=== PATIENT | male | born 1950 | race Two or more races ===

== ENCOUNTER 2018-02-05 08:26 | Inpatient (IN) | payer MEDICARE, OTHER ==
[~2018-02-05] VITALS: Ht 165.1 cm; Wt 65.8 kg
[~2018-02-05 08:26] MED LIST: ASPIRIN81 MG ORAL
[2018-02-05] MEDS ORDERED: TAMSULOSIN HCL0.4 MG ORAL (08:28)
[2018-02-05] MEDS ORDERED: NEPHROVITE1 TAB ORAL (08:28)
[2018-02-05] MEDS ORDERED: DOCUSATE SODIU100 M2 ORAL (08:28)
[2018-02-05] MEDS ORDERED: ACETAMINOPHEN325 M1 ORAL (08:28)
[2018-02-05] MEDS ORDERED: NEXIUM40 MG ORAL (08:28)
[2018-02-05] MEDS ORDERED: TRAMADOL HCL100 M2 ORAL (08:28)
[2018-02-05] MEDS ORDERED: COREG6.25 MG ORAL (08:28)
[2018-02-05] MEDS ORDERED: BACLOFEN5 GM MC (08:33)
[2018-02-05] MEDS ORDERED: PROGRAF0.5 MG PO (08:33)
[2018-02-05] MEDS ORDERED: PREDNISONE5 M4 PO (08:33)
[2018-02-05] MEDS ORDERED: ZOFRAN4 M1 ORAL (08:33)
[2018-02-05] MEDS ORDERED: CATAPRES0.2 MG ORAL (08:33)
[2018-02-05] MEDS ORDERED: LANTUS SOL100 UNIT/1 SUBQ (08:33)
[2018-02-05] MEDS ORDERED: FLUCONAZOLE100 MG ORAL (08:33)
--- NOTE | 2018-02-05 08:57 | Emergency Room Report ---
History of Present Illness General Chief Complaint: Altered Level of Consciousness Source: EMS Present Illness HPI Patient presents with reports of altered mental status patient presents from a nursing facility There is no report of last known well Patient was found this morning to be altered There is a report from paramedics that the patient usually is awake and alert Was found this morning with decreased GCS Patient has very minimal grimacing with physical stimuli There was no reports of obvious fever Patient appears to be a dialysis patient however unknown last dialysis Very limited report provided by EMS Allergies: Coded Allergies: No Known Allergies (Unverified , 02/05/18) Patient History Limited by: medical condition Past Medical History: see triage record Pertinent Family History: unable to obtain Reviewed Nursing Documentation: PMH: Agreed; PSxH: Agreed Review of Systems All Other Systems: limited - Other than the ones mentioned in the history of present illness all others are reviewed however they do stay limited due to the patient's mental status Physical Exam Vital Signs Date Time Temp Pulse Resp B/P (MAP) Pulse Ox O2 Delivery O2 Flow Rate FiO2 02/05/18 08:09 90.1 80 20 178/101 99 Nasal Cannula 2.0 90.1 Sp02 EP Interpretation: reviewed, normal General Appearance: moderate distress - Decreased responsiveness Head: normocephalic, atraumatic Eyes: bilateral eye PERRL ENT: dry mucus membranes Neck: supple Respiratory: no retraction, no accessory muscle use, crackles - Both lower lobes Cardiovascular #1: regular rate, rhythm Gastrointestinal: soft, no mass, no bruit, no guarding Musculoskeletal: other - Patient does not have any movement of his upper or lower limbs with physical stimuli, minimally grimaces with physical stimuli Neurologic: other - Decreased GCS as noted above, essentially minimal movement to physical stimuli, does not have any response to verbal stimuli, upper and lower extremities have no response to physical stimuli Skin: pallor Lymphatic: no adenopathy Procedures Critical Care Time Critical Care Time 50 minutes for multiple re-evaluations initial critical presentation concerning for intracranial and cardiac disease and life-threatening pathology. Not including any procedural time, Medical Decision Making Diagnostic Impression: Primary Impression: Acute encephalopathy Additional Impression: Altered level of consciousness ER Course Speaking to the family at bedside now They report that the patient has had a renal transplant several years ago and has not required dialysis since then patient was also recently at [facility] Family reports the patient required several blood transfusions Also reported history of a fall recently hitting the right side of his head The patient's sister reports that the patient has not been verbal and appears unresponsive for the past 2 days now Yesterday the patient was not verbal She also reports that since the fall about 7 days ago patient has not been ambulatory Family also reports the patient had previous history of meningitis with description of encephalopathy patient otherwise remains in critical condition Essentially responsive to physical stimuli but not verbal Initial workup including CT head does not reveal any acute bleed Patient does not meet criteria for thrombolytic therapy Multiple reasons including last known well Patient's white blood cell count is appropriate patient started on broad- spectrum antibiotics also given some right lower lobe atelectasis/concern for aspiration Case discussed with admitting physician Encephalopathy from multiple differentials also considered and patient will have further inpatient care Labs Test 02/05/18 09:00 White Blood Count 7.3 K/UL (4.8-10.8) Red Blood Count 3.07 M/UL (4.70-6.10) Hemoglobin 10.0 G/DL (14.2-18.0) Hematocrit 28.9 % (42.0-52.0) Mean Corpuscular Volume 94 FL (80-99) Mean Corpuscular Hemoglobin 32.5 PG (27.0-31.0) Mean Corpuscular Hemoglobin Concent 34.6 G/DL (32.0-36.0) Red Cell Distribution Width 16.3 % (11.6-14.8) Platelet Count 114 K/UL (150-450) Mean Platelet Volume 6.3 FL (6.5-10.1) Neutrophils (%) (Auto) 76.0 % (45.0-75.0) Lymphocytes (%) (Auto) 12.4 % (20.0-45.0) Monocytes (%) (Auto) 8.2 % (1.0-10.0) Eosinophils (%) (Auto) 2.7 % (0.0-3.0) Basophils (%) (Auto) 0.7 % (0.0-2.0) Prothrombin Time 9.6 SEC (9.30-11.50) Prothromb Time International Ratio 0.9 (0.9-1.1) Activated Partial Thromboplast Time 33 SEC (23-33) Urine Color Yellow Urine Appearance Clear Urine pH 5 (4.5-8.0) Urine Specific [place] 1.020 (1.005-1.035) Urine Protein 4+ (NEGATIVE) Urine Glucose (UA) 3+ (NEGATIVE) Urine Ketones Negative (NEGATIVE) Urine Occult Blood 5+ (NEGATIVE) Urine Nitrite Negative (NEGATIVE) Urine Bilirubin Negative (NEGATIVE) Urine Urobilinogen 1 MG/DL (0.0-1.0) Urine Leukocyte Esterase 1+ (NEGATIVE) Urine RBC 5-10 /HPF (0 - 0) Urine WBC 2-4 /HPF (0 - 0) Urine Squamous Epithelial Cells Few /LPF (NONE/OCC) Urine Bacteria Occasional /HPF (NONE) Urine Eosinophils None seen Urine Random Sodium 16 mmol/L (20-110) Urine Potassium Timed 41 mmol/L (12-62) Sodium Level 136 MMOL/L (136-145) Potassium Level 4.2 MMOL/L (3.5-5.1) Chloride Level 103 MMOL/L (98-107) Carbon Dioxide Level 24 MMOL/L (21-32) Anion Gap 9 mmol/L (5-15) Blood Urea Nitrogen 79 mg/dL (7-18) Creatinine 2.8 MG/DL (0.55-1.30) Estimat Glomerular Filtration Rate 22.7 mL/min (>60) Glucose Level 168 MG/DL (74-106) Lactic Acid Level 1.10 mmol/L (0.66-2.22) Uric Acid 8.0 MG/DL (2.6-7.2) Calcium Level 8.7 MG/DL (8.5-10.1) Total Bilirubin 0.9 MG/DL (0.2-1.0) Aspartate Amino Transf (AST/SGOT) 61 U/L (15-37) Alanine Aminotransferase (ALT/SGPT) 71 U/L (12-78) Alkaline Phosphatase 1329 U/L (46-116) Total Creatine Kinase 37 U/L (26-308) Creatine Kinase MB 1.7 NG/ML (0.0-3.6) Creatine Kinase MB Relative Index 4.8 Troponin I 0.003 ng/mL (0.000-0.056) Total Protein 5.6 G/DL (6.4-8.2) Albumin 1.7 G/DL (3.4-5.0) Globulin 3.9 g/dL Albumin/Globulin Ratio 0.4 (1.0-2.7) Lipase 82 U/L (73-393) EKG Diagnostic Results Rate: normal Rhythm: NSR ST Segments: other - Nonspecific ST and T-wave Rhythm Strip Diag. Results EP Interpretation: yes Rate: 88 Rhythm: NSR, no PVC's, no ectopy Chest X-Ray Diagnostic Results Chest X-Ray Diagnostic Results : Chest X-Ray Ordered: Yes # of Views/Limited/Complete: 1 View Indication: Chest Pain EP Interpretation: Yes Interpretation: no pneumothorax, other - Difficult evaluation question right lower lobe atelectasis/effusion, no obvious pneumothorax, Impression: Other - Right lower lobe atelectasis Electronically Signed by: Prince Aleman DO CT/MRI/US Diagnostic Results CT/MRI/US Diagnostic Results : Impression CT headIMPRESSION: No evidence of acute intracranial hemorrhage, mass effect, midline shift or cortical edema. MRI may be obtained for more sensitive evaluation as clinically indicated. Atrophy and nonspecific periventricular hypoattenuation suggestive of chronic ischemic microvascular changes. Intracranial atherosclerosis. Last Vital Signs Date Time Temp Pulse Resp B/P (MAP) Pulse Ox O2 Delivery O2 Flow Rate FiO2 02/05/18 08:09 90.1 80 20 178/101 99 Nasal Cannula 2.0 90.1 Status: unchanged Disposition: ADMITTED INPATIENT Condition: Critical Referrals: TEMI GAN (PCP) Prince Aleman DO Feb 05, 2018 08:57
--- NOTE | 2018-02-05 09:07 | Diagnostic Imaging Report ---
Indication: Altered mental status Technique: Continuous helical CT scanning of the head was performed utilizing automated exposure control without intravenous contrast material. Axial and coronal reconstructions were obtained. Comparison: None CT dose: Total DLP 1389.99 mGycm; CTDI vol 70.38 mGy Findings: There is no acute intracranial hemorrhage, midline shift, mass effect or cortical edema. The ventricles, cisterns and sulci are prominent consistent with atrophy. Periventricular hypoattenuation is seen, a nonspecific finding. Intracranial atherosclerotic vascular calcifications. Visualized mastoid air cells and paranasal sinuses are unremarkable. No focal lesions of the bony calvarium or soft tissues of the scalp are seen. IMPRESSION: No evidence of acute intracranial hemorrhage, mass effect, midline shift or cortical edema. MRI may be obtained for more sensitive evaluation as clinically indicated. Atrophy and nonspecific periventricular hypoattenuation suggestive of chronic ischemic microvascular changes. Intracranial atherosclerosis. The CT scanner at [facility] is accredited by the [employer] and the scans are performed using protocols designed to limit radiation exposure to as low as reasonably achievable to attain images of sufficient resolution adequate for diagnostic evaluation.
--- NOTE | 2018-02-05 09:11 | Diagnostic Imaging Report ---
Indication: Shortness of breath Technique: XRAY Chest 1v Comparison: None Findings: Patient rotated and leaning to the left. Heart is enlarged. There are atherosclerotic calcifications in the aorta. There is bilateral interstitial opacification/edema. There is a layering small left and trace right pleural effusion and left basilar atelectasis/consolidation. There is no appreciable pneumothorax. There are degenerative changes of the spine and right shoulder. No acute osseous abnormality seen. Vascular stents project over the left thorax raising question for history of renal failure/hemodialysis. IMPRESSION: Limited exam given patient rotation/positioning. Cardiomegaly with interstitial opacification/edema, small left/trace right pleural effusions and left basilar atelectasis/consolidation. Findings may be related to CHF/fluid overload. Superimposed pneumonia should be excluded clinically.
[2018-02-05 09:24] VITALS: BP 185/92
[2018-02-05 09:27] LABS: APPEARANCE,URINE CLEAR; BILIRUBIN, URINE NEGATIVE (NEGATIVE); GLUCOSE, URINE (UA) 3+ (NEGATIVE); KETONES,URINE NEGATIVE (NEGATIVE); LEUKOCYTE ESTERASE ,URINE 1+ (NEGATIVE); NITRITE,URINE NEGATIVE (NEGATIVE); PH,URINE 5 (4.5-8.0); PROTEIN,URINE 4+ (NEGATIVE); UROBILINOGEN,URINE 1 MG/DL (0.0-1.0)
[2018-02-05 09:29] LABS: BASOPHILS % (AUTO) 0.7 % (0.0-2.0); EOSINOPHILS % (AUTO) 2.7 % (0.0-3.0); HEMATOCRIT 28.9 % (42.0-52.0); LYMPHOCYTES % (AUTO) 12.4 % (20.0-45.0); MEAN CORPUSCULAR VOLUME 94 FL (80-99); MONOCYTES % (AUTO) 8.2 % (1.0-10.0); PLATELET COUNT 114 K/UL (150-450); RED BLOOD COUNT 3.07 M/UL (4.70-6.10); RED CELL DISTRIBUTION WIDTH 16.3 % (11.6-14.8); WHITE BLOOD COUNT 7.3 K/UL (4.8-10.8)
[2018-02-05 09:39] LABS: INR 0.9 (0.9-1.1)
[2018-02-05 09:43] LABS: COLOR,URINE YELLOW
[2018-02-05 09:46] LABS: ANION GAP 9 mmol/L (5-15); BLOOD UREA NITROGEN 79 mg/dL (7-18); CALCIUM 8.7 MG/DL (8.5-10.1); CARBON DIOXIDE 24 MMOL/L (21-32); CHLORIDE 103 MMOL/L (98-107); CREATININE 2.8 MG/DL (0.55-1.30); POTASSIUM 4.2 MMOL/L (3.5-5.1); SODIUM 136 MMOL/L (136-145)
[2018-02-05 09:57] LABS: ALANINE AMINOTRANSFERASE 71 U/L (12-78); ALBUMIN 1.7 G/DL (3.4-5.0); ALBUMIN/GLOBULIN RATIO 0.4 (1.0-2.7); ALKALINE PHOSPHATASE 1329 U/L (46-116); ASPARTATE AMINO TRANSFERASE 61 U/L (15-37); BILIRUBIN,TOTAL 0.9 MG/DL (0.2-1.0); CKMB 1.7 NG/ML (0.0-3.6); CREATINE KINASE 35 U/L (26-308)
[2018-02-05 10:00] VITALS: BP 176/86
[2018-02-05] MEDS ORDERED: Zolpidem 5mg tab ORAL PRN (10:15)
[2018-02-05] MEDS ORDERED: Albuterol/Ipratropium 3ml neb HHN PRN (10:15)
[2018-02-05] MEDS ORDERED: Miralax 17gm pkt ORAL PRN (10:15)
[2018-02-05] MEDS ORDERED: Morphine Sulfate 4mg/ml Inj IVP PRN (10:15)
[2018-02-05] MEDS ORDERED: cefTRIAXone 1 GM in NS 55 ML IVPB ONE (10:30)
[2018-02-05] MEDS ORDERED: Vancomycin 1.5gm/D5W 250ml 250 ML IVPB ONE (10:30)
[2018-02-05 11:00] VITALS: BP 180/93
[2018-02-05 11:00] LABS: CREATINE KINASE 37 U/L (26-308)
[2018-02-05] MEDS ORDERED: cefTRIAXone 1 GM in D5W 55 ML IVPB ONE ×4 (11:00)
[2018-02-05 12:00] VITALS: BP 198/117
[2018-02-05] MEDS ORDERED: Morphine Sulfate 4mg/ml Inj IVP ONE (12:30)
[2018-02-05 12:58] VITALS: BP 157/92
[2018-02-05] MEDS ORDERED: cloNIDine 0.2mg Tab ORAL SCH (13:00)
--- NOTE | 2018-02-05 15:19 | History and Physical ---
History of Present Illness General Date patient seen: Feb 05, 2018 Reason for Hospitalization: Altered Level of Consciousness Present Illness HPI 68 year old male with hx of ESR, s/p renal transplant, DM, HTN, longterm resident, [facility]IKA with CC of altered mental status patient There is a report from paramedics that the patient usually is awake and alert. Patient has very minimal grimacing with physical stimuli. There was a report that he might have had an episode of seizures. Pt is responding only to painful stimuli. and not cooperating with PE. Allergies: Coded Allergies: No Known Allergies (Unverified , 02/05/18) Medication History Scheduled Aspirin* (Aspirin*), 81 MG ORAL DAILY, (Reported) Carvedilol (Coreg), 6.25 MG ORAL TWICE A DAY, (Reported) Clonidine Hcl* (Catapres*), 0.2 MG ORAL Q4HR, (Reported) Docusate Sodium (Docusate Sodium), 100 MG ORAL TWICE A DAY, (Reported) Esomeprazole Magnesium (Nexium), 40 MG ORAL DAILY, (Reported) Fluconazole (Fluconazole), 200 MG ORAL DAILY, (Reported) Insulin Glargine (Lantus), 0 SUBQ BEDTIME, (Reported) Prednisone (Prednisone), 5 MG PO ONCE, (Reported) Tacrolimus (Prograf), 0.5 MG PO BID, (Reported) Tamsulosin Hcl (Tamsulosin Hcl*), 0.4 MG ORAL BEDTIME, (Reported) Tramadol Hcl (Tramadol Hcl), 50 MG ORAL DAILY, (Reported) Vitamin B Cmplx/Vit C/Folic AC (Nephro-Fred Tablet), 1 TAB ORAL DAILY, (Reported ) Scheduled PRN Acetaminophen* (Acetaminophen 325MG Tablet*), 650 MG ORAL Q4H PRN for Mild Pain (Pain Scale 1-3), (Reported) Ondansetron (Zofran), 4 MG ORAL Q4HR PRN for Nausea & Vomiting, (Reported) Miscellaneous Medications Baclofen (Baclofen), 20 GM MC, (Reported) Patient History Healthcare decision maker Resuscitation status Advanced Directive on File Past Medical/Surgical History Past Medical/Surgical History: (1) Chronic kidney insufficiency (2) Hx of kidney transplant (3) Diabetes mellitus (4) History of hypertension Review of Systems All Other Systems: negative except mentioned in HPI Physical Exam General Appearance: WD/WN, no apparent distress Lines, tubes and drains: peripheral HEENT: normocephalic, atraumatic Neck: non-tender, normal alignment Respiratory/Chest: chest wall non-tender, lungs clear, normal breath sounds Breasts: no masses Cardiovascular/Chest: normal peripheral pulses, normal rate Abdomen: normal bowel sounds, non tender Genitourinary/Rectal: normal genital exam Extremities: normal range of motion Last 24 Hour Vital Signs Date Time Temp Pulse Resp B/P (MAP) Pulse Ox O2 Delivery O2 Flow Rate FiO2 02/05/18 12:58 16 157/92 99 02/05/18 12:00 99 15 198/117 100 Room Air 02/05/18 11:36 181/91 02/05/18 11:00 73 14 180/93 100 Room Air 02/05/18 10:00 73 12 176/86 100 Room Air 02/05/18 09:37 Room Air 02/05/18 09:24 97.0 90 20 185/92 100 Room Air 97.0 02/05/18 08:09 90.1 80 20 178/101 99 Nasal Cannula 2.0 90.1 Laboratory Tests Test 02/05/18 09:00 White Blood Count 7.3 K/UL (4.8-10.8) Red Blood Count 3.07 M/UL (4.70-6.10) L Hemoglobin 10.0 G/DL (14.2-18.0) L Hematocrit 28.9 % (42.0-52.0) L Mean Corpuscular Volume 94 FL (80-99) Mean Corpuscular Hemoglobin 32.5 PG (27.0-31.0) H Mean Corpuscular Hemoglobin Concent 34.6 G/DL (32.0-36.0) Red Cell Distribution Width 16.3 % (11.6-14.8) H Platelet Count 114 K/UL (150-450) L Mean Platelet Volume 6.3 FL (6.5-10.1) L Neutrophils (%) (Auto) 76.0 % (45.0-75.0) H Lymphocytes (%) (Auto) 12.4 % (20.0-45.0) L Monocytes (%) (Auto) 8.2 % (1.0-10.0) Eosinophils (%) (Auto) 2.7 % (0.0-3.0) Basophils (%) (Auto) 0.7 % (0.0-2.0) Prothrombin Time 9.6 SEC (9.30-11.50) Prothromb Time International Ratio 0.9 (0.9-1.1) Activated Partial Thromboplast Time 33 SEC (23-33) Urine Color Yellow Urine Appearance Clear Urine pH 5 (4.5-8.0) Urine Specific [place] 1.020 (1.005-1.035) Urine Protein 4+ (NEGATIVE) H Urine Glucose (UA) 3+ (NEGATIVE) H Urine Ketones Negative (NEGATIVE) Urine Occult Blood 5+ (NEGATIVE) H Urine Nitrite Negative (NEGATIVE) Urine Bilirubin Negative (NEGATIVE) Urine Urobilinogen 1 MG/DL (0.0-1.0) H Urine Leukocyte Esterase 1+ (NEGATIVE) H Urine RBC 5-10 /HPF (0 - 0) H Urine WBC 2-4 /HPF (0 - 0) Urine Squamous Epithelial Cells Few /LPF (NONE/OCC) Urine Bacteria Occasional /HPF (NONE) Urine Eosinophils None seen Urine Random Sodium 16 mmol/L (20-110) L Urine Potassium Timed 41 mmol/L (12-62) Sodium Level 136 MMOL/L (136-145) Potassium Level 4.2 MMOL/L (3.5-5.1) Chloride Level 103 MMOL/L (98-107) Carbon Dioxide Level 24 MMOL/L (21-32) Anion Gap 9 mmol/L (5-15) Blood Urea Nitrogen 79 mg/dL (7-18) H Creatinine 2.8 MG/DL (0.55-1.30) H Estimat Glomerular Filtration Rate 22.7 mL/min (>60) Glucose Level 168 MG/DL (74-106) H Lactic Acid Level 1.10 mmol/L (0.66-2.22) Uric Acid 8.0 MG/DL (2.6-7.2) H Calcium Level 8.7 MG/DL (8.5-10.1) Total Bilirubin 0.9 MG/DL (0.2-1.0) Aspartate Amino Transf (AST/SGOT) 61 U/L (15-37) H Alanine Aminotransferase (ALT/SGPT) 71 U/L (12-78) Alkaline Phosphatase 1329 U/L (46-116) H Total Creatine Kinase 37 U/L (26-308) Creatine Kinase MB 1.7 NG/ML (0.0-3.6) Creatine Kinase MB Relative Index 4.8 Troponin I 0.003 ng/mL (0.000-0.056) Total Protein 5.6 G/DL (6.4-8.2) L Albumin 1.7 G/DL (3.4-5.0) L Globulin 3.9 g/dL Albumin/Globulin Ratio 0.4 (1.0-2.7) L Lipase 82 U/L (73-393) Height (Feet): 5 Height (Inches): 5.00 Weight (Pounds): 160 Medications Current Medications Medications (Trade) Dose Ordered Sig/Manuel Route PRN Reason Start Time Stop Time Status Last Admin Dose Admin Acetaminophen (Tylenol) 650 mg Q4H PRN ORAL fever (temp>100.5F) 02/05/18 10:15 03/07/18 10:14 Albuterol/ Ipratropium (Albuterol/ Ipratropium) 3 ml Q6H PRN HHN dyspnea 02/05/18 10:15 02/10/18 10:14 Carvedilol (Coreg) 6.25 mg Q12HR ORAL 02/05/18 21:00 03/07/18 20:59 Clonidine HCl (Catapres Tab) 0.1 mg Q4H PRN ORAL For High Blood Pressure 02/05/18 10:15 03/07/18 10:14 Dextrose (Dextrose 50%) 25 ml STAT PRN IV Hypoglycemia 02/05/18 10:15 03/07/18 10:14 Dextrose (Dextrose 50%) 50 ml STAT PRN IV Hypoglycemia 02/05/18 10:15 03/07/18 10:14 Heparin Sodium (Porcine) (Heparin 5000 units/ml) 5,000 units EVERY 12 HOURS SUBQ 02/05/18 21:00 03/07/18 20:59 Insulin Aspart (NovoLOG) BEFORE MEALS AND HS SUBQ 02/05/18 16:30 03/07/18 16:29 Morphine Sulfate (Morphine Sulfate) 1 mg Q4H PRN IVP For Pain 02/05/18 10:15 02/12/18 10:14 Ondansetron HCl (Zofran) 4 mg Q6H PRN IVP Nausea & Vomiting 02/05/18 10:15 03/07/18 10:14 Polyethylene Glycol (Miralax) 17 gm HSPRN PRN ORAL Constipation 02/05/18 10:15 03/07/18 10:14 Prednisone (predniSONE) 5 mg DAILY ORAL 02/06/18 09:00 03/08/18 08:59 Tacrolimus (Prograf) 0.5 mg EVERY 12 HOURS ORAL 02/05/18 21:00 03/07/18 20:59 Tamsulosin HCl (Flomax) 0.4 mg BEDTIME ORAL 02/05/18 21:00 03/07/18 20:59 Zolpidem Tartrate (Ambien) 5 mg HSPRN PRN ORAL Insomnia 02/05/18 10:15 02/12/18 10:14 Assessment/Plan Problem List: (1) Acute encephalopathy ICD Codes: G93.40 - Encephalopathy, unspecified SNOMED: 33187644, 726971330 (2) Chronic kidney insufficiency ICD Codes: N18.9 - Chronic kidney disease, unspecified SNOMED: 527419404 (3) History of hypertension ICD Codes: Z86.79 - Personal history of other diseases of the circulatory system SNOMED: 540098014 (4) Hx of kidney transplant ICD Codes: Z94.0 - Kidney transplant status SNOMED: 56570425, 664861915 (5) Diabetes mellitus ICD Codes: E11.9 - Type 2 diabetes mellitus without complications SNOMED: 49099807 Assessment/Plan telemetry monitoring sliding scale NPO renal studies seizure precaution Neurology evaluation MRI of brain Renal evaluation. Le Bagley MD Feb 05, 2018 15:19
[2018-02-05] MEDS: NovoLOG Insulin Flexpen SUBQ SCH ×2 (18:04→20:49)
[2018-02-05 20:00] VITALS: BP 115/61
[2018-02-05] MEDS: Carvedilol 6.25mg Tab ORAL SCH (20:47)
[2018-02-05] MEDS: Heparin 5000 units/ml inj SUBQ SCH (20:48)
[2018-02-05] MEDS ORDERED: Tamsulosin 0.4mg cap ORAL SCH (21:00)
--- NOTE | 2018-02-05 21:02 | Consultation ---
Consult Note Consult Note Chief Complaint: Altered Level of Consciousness Patient presents with reports of altered mental status patient presents from a nursing facility There is no report of last known well Patient was found this morning to be altered There is a report from paramedics that the patient usually is awake and alert Was found this morning with decreased GCS Patient has very minimal grimacing with physical stimuli There was no reports of obvious fever Patient appears to be a dialysis patient however unknown last dialysis Very limited report provided by EMS Allergies: Coded Allergies: No Known Allergies (Unverified , 02/05/18) Patient History Limited by: medical condition Past Medical History: see triage record Pertinent Family History: unable to obtain Reviewed Nursing Documentation: PMH: Agreed; PSxH: Agreed Assessment/Plan Renal failure- Appears mainly prerenal previous kidney transplant acute encephalopathy previous multiple transfusions hypoalbuminemia 4+ proteinuria ID eval? Slow hydrate- 2D Echo Avoid nephrotoxics monitor renal parameters MELISA HOYT Feb 05, 2018 21:02
[2018-02-06] VITALS: BP 135/99
[2018-02-06 04:00] VITALS: BP 126/88
[2018-02-06] MEDS: NovoLOG Insulin Flexpen SUBQ SCH ×4 (06:04→21:18)
[2018-02-06 08:00] VITALS: BP 154/102
[2018-02-06] MEDS: Carvedilol 6.25mg Tab ORAL SCH (08:34)
[2018-02-06 08:57] LABS: BASOPHILS % (AUTO) 0.6 % (0.0-2.0); EOSINOPHILS % (AUTO) 3.2 % (0.0-3.0); HEMATOCRIT 28.4 % (42.0-52.0); HEMOGLOBIN 9.8 G/DL (14.2-18.0); LYMPHOCYTES % (AUTO) 14.6 % (20.0-45.0); MEAN CORPUSCULAR VOLUME 94 FL (80-99); MONOCYTES % (AUTO) 7.8 % (1.0-10.0); NEUTROPHILS % (AUTO) 73.8 % (45.0-75.0); PLATELET COUNT 133 K/UL (150-450); RED BLOOD COUNT 3.02 M/UL (4.70-6.10); RED CELL DISTRIBUTION WIDTH 16.6 % (11.6-14.8); WHITE BLOOD COUNT 8.9 K/UL (4.8-10.8)
[2018-02-06] MEDS: Heparin 5000 units/ml inj SUBQ SCH ×2 (09:36→21:19)
[2018-02-06 09:44] LABS: % IRON SATURATION 28 % (15-50); IRON 40 ug/dL (50-175); TOTAL IRON BINDING CAPACITY 145 ug/dL (250-450)
[2018-02-06 10:11] LABS: ALANINE AMINOTRANSFERASE 66 U/L (12-78); ALBUMIN 1.6 G/DL (3.4-5.0); ALBUMIN/GLOBULIN RATIO 0.4 (1.0-2.7); ALKALINE PHOSPHATASE 1303 U/L (46-116); ANION GAP 11 mmol/L (5-15); ASPARTATE AMINO TRANSFERASE 53 U/L (15-37); BLOOD UREA NITROGEN 80 mg/dL (7-18); CALCIUM 9.2 MG/DL (8.5-10.1); CARBON DIOXIDE 21 MMOL/L (21-32); CHLORIDE 105 MMOL/L (98-107); CHOLESTEROL 198 MG/DL (< 200); CREATININE 2.9 MG/DL (0.55-1.30); FERRITIN 1374 NG/ML (8-388); HDL CHOLESTEROL 33 MG/DL (40-60); POTASSIUM 4.6 MMOL/L (3.5-5.1); SODIUM 137 MMOL/L (136-145); TRIGLYCERIDES 272 MG/DL (30-150)
--- NOTE | 2018-02-06 10:19 | Diagnostic Imaging Report ---
Indication: NG tube placement Comparison: None Single view of the abdomen obtained Findings: NG tube is in good position with the proximal port and tip both well situated in the stomach. IMPRESSION: NG tube in good position
[2018-02-06 10:31] LABS: CREATINE KINASE 31 U/L (26-308); GAMMA GLUTAMYL TRANSPEPTIDASE 2354 U/L (5-85); PHOSPHORUS 5.2 MG/DL (2.5-4.9)
[2018-02-06 12:00] VITALS: BP 157/77
--- NOTE | 2018-02-06 12:35 | Pulmonology Progress Note ---
Assessment/Plan Problems: (1) Acute encephalopathy (2) Chronic kidney insufficiency (3) History of hypertension (4) Hx of kidney transplant (5) Diabetes mellitus Assessment/Plan mental status improved slightly Pt hs NG tube now neuro evaluation pending siding scale monitor BP Subjective ROS Limited/Unobtainable: No Interval Events: keeps eyes clsoed, but responds to simple questions Allergies: Coded Allergies: No Known Allergies (Unverified , 02/05/18) Objective Last 24 Hour Vital Signs Date Time Temp Pulse Resp B/P (MAP) Pulse Ox O2 Delivery O2 Flow Rate FiO2 02/06/18 08:34 107 154/102 02/06/18 08:00 112 02/06/18 08:00 98.6 107 21 154/102 97 Room Air 98.6 02/06/18 04:00 98.0 91 20 126/88 97 Room Air 98.0 02/06/18 04:00 91 02/06/18 00:00 97.6 92 20 135/99 97 Room Air 97.6 02/06/18 00:00 92 02/05/18 20:47 102 115/61 02/05/18 20:00 97.6 103 20 115/61 99 Room Air 97.6 02/05/18 20:00 103 02/05/18 16:02 103 02/05/18 13:30 97.0 99 16 157/92 99 Room Air 97.0 02/05/18 13:05 97.0 02/05/18 12:58 16 157/92 99 Intake and Output 02/05/18 02/06/18 19:00 07:00 Intake Total 1055 ml Output Total 225 ml 450 ml Balance 830 ml -450 ml Intake IV Total 1055 ml Output Urine Total 225 ml 450 ml General Appearance: WD/WN HEENT: normocephalic, atraumatic Respiratory/Chest: chest wall non-tender, lungs clear Cardiovascular: normal peripheral pulses, normal rate Abdomen: normal bowel sounds, soft, non tender Genitourinary: normal external genitalia Extremities: no cyanosis Skin: no rash Neurologic/Psychiatric: dosimetrist II-XII grossly normal, normal mood/affect Laboratory Tests 02/06/18 08:10: White Blood Count 8.9, Red Blood Count 3.02L, Hemoglobin 9.8L, Hematocrit 28.4L , Mean Corpuscular Volume 94, Mean Corpuscular Hemoglobin 32.3H, Mean Corpuscular Hemoglobin Concent 34.4, Red Cell Distribution Width 16.6H, Platelet Count 133L, Mean Platelet Volume 5.5L, Neutrophils (%) (Auto) 73.8, Lymphocytes (%) (Auto) 14.6L, Monocytes (%) (Auto) 7.8, Eosinophils (%) (Auto) 3.2H, Basophils (%) (Auto) 0.6, Sodium Level 137, Potassium Level 4.6, Chloride Level 105, Carbon Dioxide Level 21, Anion Gap 11, Blood Urea Nitrogen 80H, Creatinine 2.9H, Estimat Glomerular Filtration Rate 21.8, Glucose Level 121H, Hemoglobin A1c 6.0, Uric Acid 8.3H, Calcium Level 9.2, Phosphorus Level 5.2H, Magnesium Level 2.4, Iron Level 40L, Total Iron Binding Capacity 145L, Percent Iron Saturation 28, Unsaturated Iron Binding 105L, Ferritin 1374H, Total Bilirubin 1.0, Gamma Glutamyl Transpeptidase 2354H, Aspartate Amino Transf (AST/ SGOT) 53H, Alanine Aminotransferase (ALT/SGPT) 66, Alkaline Phosphatase 1303H, Ammonia 60H, Total Creatine Kinase 31, Pro-B-Type Natriuretic Peptide 11638K, Total Protein 5.4L, Albumin 1.6L, Globulin 3.8, Albumin/Globulin Ratio 0.4L, Triglycerides Level 272H, Cholesterol Level 198, LDL Cholesterol 109H, HDL Cholesterol 33L, Cholesterol/HDL Ratio 6.0H, Vitamin B12 Level 699, Folate 13.6 , Thyroid Stimulating Hormone (TSH) 4.432H Current Medications Medications (Trade) Dose Ordered Sig/Manuel Route PRN Reason Start Time Stop Time Status Last Admin Dose Admin Acetaminophen (Tylenol) 650 mg Q4H PRN ORAL fever (temp>100.5F) 02/05/18 10:15 03/07/18 10:14 Albuterol/ Ipratropium (Albuterol/ Ipratropium) 3 ml Q6H PRN HHN dyspnea 02/05/18 10:15 02/10/18 10:14 Carvedilol (Coreg) 6.25 mg Q12HR ORAL 02/05/18 21:00 03/07/18 20:59 02/06/18 08:34 Clonidine HCl (Catapres Tab) 0.1 mg Q4H PRN ORAL For High Blood Pressure 02/05/18 10:15 03/07/18 10:14 Dextrose (Dextrose 50%) 25 ml STAT PRN IV Hypoglycemia 02/05/18 10:15 03/07/18 10:14 Dextrose (Dextrose 50%) 50 ml STAT PRN IV Hypoglycemia 02/05/18 10:15 03/07/18 10:14 Heparin Sodium (Porcine) (Heparin 5000 units/ml) 5,000 units EVERY 12 HOURS SUBQ 02/05/18 21:00 03/07/18 20:59 02/06/18 09:36 Insulin Aspart (NovoLOG) BEFORE MEALS AND HS SUBQ 02/05/18 16:30 03/07/18 16:29 02/06/18 06:04 Morphine Sulfate (Morphine Sulfate) 1 mg Q4H PRN IVP For Pain 02/05/18 10:15 02/12/18 10:14 Ondansetron HCl (Zofran) 4 mg Q6H PRN IVP Nausea & Vomiting 02/05/18 10:15 03/07/18 10:14 Polyethylene Glycol (Miralax) 17 gm HSPRN PRN ORAL Constipation 02/05/18 10:15 03/07/18 10:14 Prednisone (predniSONE) 5 mg DAILY ORAL 02/06/18 09:00 03/08/18 08:59 02/06/18 08:36 Tacrolimus (Prograf) 0.5 mg EVERY 12 HOURS ORAL 02/05/18 21:00 03/07/18 20:59 02/06/18 08:35 Tamsulosin HCl (Flomax) 0.4 mg BEDTIME ORAL 02/05/18 21:00 03/07/18 20:59 02/05/18 20:47 Zolpidem Tartrate (Ambien) 5 mg HSPRN PRN ORAL Insomnia 02/05/18 10:15 02/12/18 10:14 Le Bagley MD February 06, 2018 12:35
--- NOTE | 2018-02-06 13:30 | Nephrology Progress Note ---
Assessment/Plan Problem List: (1) Acute encephalopathy (2) Chronic kidney insufficiency (3) History of hypertension Assessment R enal failure- Appears mainly prerenal, likely with underlying renal previous kidney transplant acute encephalopathy previous multiple transfusions hypoalbuminemia 4+ proteinuria left arm swelling adjust bp meds Plan Plan: change feeding to Nepro ID eval? 2D Echo pending Avoid nephrotoxics monitor renal parameters venous duplex left arm 24 h urine for total Protein Subjective ROS Limited/Unobtainable: No Constitutional: Reports: malaise, other - nonverbal Objective Objective Last 24 Hour Vital Signs Date Time Temp Pulse Resp B/P (MAP) Pulse Ox O2 Delivery O2 Flow Rate FiO2 02/06/18 12:00 97.7 100 19 157/77 93 Room Air 97.7 02/06/18 08:34 107 154/102 02/06/18 08:00 112 02/06/18 08:00 98.6 107 21 154/102 97 Room Air 98.6 02/06/18 04:00 98.0 91 20 126/88 97 Room Air 98.0 02/06/18 04:00 91 02/06/18 00:00 97.6 92 20 135/99 97 Room Air 97.6 02/06/18 00:00 92 02/05/18 20:47 102 115/61 02/05/18 20:00 97.6 103 20 115/61 99 Room Air 97.6 02/05/18 20:00 103 02/05/18 16:02 103 02/05/18 13:30 97.0 99 16 157/92 99 Room Air 97.0 Intake and Output 02/05/18 02/06/18 19:00 07:00 Intake Total 1055 ml Output Total 225 ml 450 ml Balance 830 ml -450 ml Intake IV Total 1055 ml Output Urine Total 225 ml 450 ml Laboratory Tests 02/06/18 08:10: White Blood Count 8.9, Red Blood Count 3.02L, Hemoglobin 9.8L, Hematocrit 28.4L , Mean Corpuscular Volume 94, Mean Corpuscular Hemoglobin 32.3H, Mean Corpuscular Hemoglobin Concent 34.4, Red Cell Distribution Width 16.6H, Platelet Count 133L, Mean Platelet Volume 5.5L, Neutrophils (%) (Auto) 73.8, Lymphocytes (%) (Auto) 14.6L, Monocytes (%) (Auto) 7.8, Eosinophils (%) (Auto) 3.2H, Basophils (%) (Auto) 0.6, Sodium Level 137, Potassium Level 4.6, Chloride Level 105, Carbon Dioxide Level 21, Anion Gap 11, Blood Urea Nitrogen 80H, Creatinine 2.9H, Estimat Glomerular Filtration Rate 21.8, Glucose Level 121H, Hemoglobin A1c 6.0, Uric Acid 8.3H, Calcium Level 9.2, Phosphorus Level 5.2H, Magnesium Level 2.4, Iron Level 40L, Total Iron Binding Capacity 145L, Percent Iron Saturation 28, Unsaturated Iron Binding 105L, Ferritin 1374H, Total Bilirubin 1.0, Gamma Glutamyl Transpeptidase 2354H, Aspartate Amino Transf (AST/ SGOT) 53H, Alanine Aminotransferase (ALT/SGPT) 66, Alkaline Phosphatase 1303H, Ammonia 60H, Total Creatine Kinase 31, Pro-B-Type Natriuretic Peptide 85981T, Total Protein 5.4L, Albumin 1.6L, Globulin 3.8, Albumin/Globulin Ratio 0.4L, Triglycerides Level 272H, Cholesterol Level 198, LDL Cholesterol 109H, HDL Cholesterol 33L, Cholesterol/HDL Ratio 6.0H, Vitamin B12 Level 699, Folate 13.6 , Thyroid Stimulating Hormone (TSH) 4.432H Height (Feet): 5 Height (Inches): 6.00 Weight (Pounds): 145 General Appearance: no apparent distress, lethargic Respiratory/Chest: decreased breath sounds Abdomen: soft Genitourinary/Rectal: other - valentine in Extremities: other - left arm swollen MELISA HOYT February 06, 2018 13:30
--- NOTE | 2018-02-06 13:32 | Consultation ---
History of Present Illness General Date patient seen: February 06, 2018 Time patient seen: 13:22 Chief Complaint: Altered Level of Consciousness Present Illness HPI 68 y/o M with hx of ESRD s/p kidney transplant, DM2, HTN, presents to ED on from care home with AMS. Found to have AI, hypoalbuminemia and proteinuria. Possible seizure episode as per report. No report of fever/chills, sob, cough, n/v/d. Per family member, patient was at [facility] for 1 week about 2 weeks ago for decrease apetite, anemia. Was given 4 units of blood and abx (not clear for what indication), no obvious bleeding and from there transferred to care home but usually lives in an apt with his son. Patient few days prior to admission was complaining of neck pain and was given pain meds at the facility and he became more drowsy, confused and apparently had seizure episode Afebrile, ; had hypothermia upon admission, now resolevd. no leukocytosis. Allergies: Coded Allergies: No Known Allergies (Unverified , 02/05/18) Medication History Scheduled Aspirin* (Aspirin*), 81 MG ORAL DAILY, (Reported) Carvedilol (Coreg), 6.25 MG ORAL TWICE A DAY, (Reported) Clonidine Hcl* (Catapres*), 0.2 MG ORAL Q4HR, (Reported) Docusate Sodium (Docusate Sodium), 100 MG ORAL TWICE A DAY, (Reported) Esomeprazole Magnesium (Nexium), 40 MG ORAL DAILY, (Reported) Fluconazole (Fluconazole), 200 MG ORAL DAILY, (Reported) Insulin Glargine (Lantus), 0 SUBQ BEDTIME, (Reported) Prednisone (Prednisone), 5 MG PO ONCE, (Reported) Tacrolimus (Prograf), 0.5 MG PO BID, (Reported) Tamsulosin Hcl (Tamsulosin Hcl*), 0.4 MG ORAL BEDTIME, (Reported) Tramadol Hcl (Tramadol Hcl), 50 MG ORAL DAILY, (Reported) Vitamin B Cmplx/Vit C/Folic AC (Nephro-Fred Tablet), 1 TAB ORAL DAILY, (Reported ) Scheduled PRN Acetaminophen* (Acetaminophen 325MG Tablet*), 650 MG ORAL Q4H PRN for Mild Pain (Pain Scale 1-3), (Reported) Ondansetron (Zofran), 4 MG ORAL Q4HR PRN for Nausea & Vomiting, (Reported) Miscellaneous Medications Baclofen (Baclofen), 20 GM MC, (Reported) Patient History Healthcare decision maker sister Resuscitation status Full Code Advanced Directive on File No Patient History Narrative Pmhx: as above Shx: reviewed Fhx: non contributory Review of Systems All Other Systems: negative except mentioned in HPI Physical Exam Physical Exam Narrative General Appearance: WD/WN, no apparent distress Lines, tubes and drains: peripheral HEENT: normocephalic, atraumatic Neck: non-tender, normal alignment Respiratory/Chest: chest wall non-tender, lungs clear, normal breath sounds Cardiovascular/Chest: normal rate Abdomen: normal bowel sounds, non tender Extremities: trace edema, bruises, ecchymosis Last 24 Hour Vital Signs Date Time Temp Pulse Resp B/P (MAP) Pulse Ox O2 Delivery O2 Flow Rate FiO2 02/06/18 12:00 97.7 100 19 157/77 93 Room Air 97.7 02/06/18 08:34 107 154/102 02/06/18 08:00 112 02/06/18 08:00 98.6 107 21 154/102 97 Room Air 98.6 02/06/18 04:00 98.0 91 20 126/88 97 Room Air 98.0 02/06/18 04:00 91 02/06/18 00:00 97.6 92 20 135/99 97 Room Air 97.6 02/06/18 00:00 92 02/05/18 20:47 102 115/61 02/05/18 20:00 97.6 103 20 115/61 99 Room Air 97.6 02/05/18 20:00 103 02/05/18 16:02 103 02/05/18 13:30 97.0 99 16 157/92 99 Room Air 97.0 Intake and Output 02/05/18 02/06/18 19:00 07:00 Intake Total 1055 ml Output Total 225 ml 450 ml Balance 830 ml -450 ml Intake IV Total 1055 ml Output Urine Total 225 ml 450 ml Laboratory Tests Test 02/06/18 08:10 White Blood Count 8.9 K/UL (4.8-10.8) Red Blood Count 3.02 M/UL (4.70-6.10) L Hemoglobin 9.8 G/DL (14.2-18.0) L Hematocrit 28.4 % (42.0-52.0) L Mean Corpuscular Volume 94 FL (80-99) Mean Corpuscular Hemoglobin 32.3 PG (27.0-31.0) H Mean Corpuscular Hemoglobin Concent 34.4 G/DL (32.0-36.0) Red Cell Distribution Width 16.6 % (11.6-14.8) H Platelet Count 133 K/UL (150-450) L Mean Platelet Volume 5.5 FL (6.5-10.1) L Neutrophils (%) (Auto) 73.8 % (45.0-75.0) Lymphocytes (%) (Auto) 14.6 % (20.0-45.0) L Monocytes (%) (Auto) 7.8 % (1.0-10.0) Eosinophils (%) (Auto) 3.2 % (0.0-3.0) H Basophils (%) (Auto) 0.6 % (0.0-2.0) Sodium Level 137 MMOL/L (136-145) Potassium Level 4.6 MMOL/L (3.5-5.1) Chloride Level 105 MMOL/L (98-107) Carbon Dioxide Level 21 MMOL/L (21-32) Anion Gap 11 mmol/L (5-15) Blood Urea Nitrogen 80 mg/dL (7-18) H Creatinine 2.9 MG/DL (0.55-1.30) H Estimat Glomerular Filtration Rate 21.8 mL/min (>60) Glucose Level 121 MG/DL (74-106) H Hemoglobin A1c 6.0 % (4.3-6.0) Uric Acid 8.3 MG/DL (2.6-7.2) H Calcium Level 9.2 MG/DL (8.5-10.1) Phosphorus Level 5.2 MG/DL (2.5-4.9) H Magnesium Level 2.4 MG/DL (1.8-2.4) Iron Level 40 ug/dL (50-175) L Total Iron Binding Capacity 145 ug/dL (250-450) L Percent Iron Saturation 28 % (15-50) Unsaturated Iron Binding 105 ug/dL (112-346) L Ferritin 1374 NG/ML (8-388) H Total Bilirubin 1.0 MG/DL (0.2-1.0) Gamma Glutamyl Transpeptidase 2354 U/L (5-85) H Aspartate Amino Transf (AST/SGOT) 53 U/L (15-37) H Alanine Aminotransferase (ALT/SGPT) 66 U/L (12-78) Alkaline Phosphatase 1303 U/L (46-116) H Ammonia 60 umol/L (11-32) H Total Creatine Kinase 31 U/L (26-308) Pro-B-Type Natriuretic Peptide 11755 pg/mL (0-125) H Total Protein 5.4 G/DL (6.4-8.2) L Albumin 1.6 G/DL (3.4-5.0) L Globulin 3.8 g/dL Albumin/Globulin Ratio 0.4 (1.0-2.7) L Triglycerides Level 272 MG/DL (30-150) H Cholesterol Level 198 MG/DL (< 200) LDL Cholesterol 109 mg/dL (<100) H HDL Cholesterol 33 MG/DL (40-60) L Cholesterol/HDL Ratio 6.0 (3.3-4.4) H Vitamin B12 Level 699 PG/ML (193-986) Folate 13.6 NG/ML (8.6-58.9) Thyroid Stimulating Hormone (TSH) 4.432 uiU/mL (0.358-3.740) Height (Feet): 5 Height (Inches): 6.00 Weight (Pounds): 145 Medications Current Medications Medications (Trade) Dose Ordered Sig/Manuel Route PRN Reason Start Time Stop Time Status Last Admin Dose Admin Acetaminophen (Tylenol) 650 mg Q4H PRN ORAL fever (temp>100.5F) 02/05/18 10:15 03/07/18 10:14 Albuterol/ Ipratropium (Albuterol/ Ipratropium) 3 ml Q6H PRN HHN dyspnea 02/05/18 10:15 02/10/18 10:14 Carvedilol (Coreg) 6.25 mg Q12HR ORAL 02/05/18 21:00 03/07/18 20:59 02/06/18 08:34 Clonidine HCl (Catapres Tab) 0.1 mg Q4H PRN ORAL For High Blood Pressure 02/05/18 10:15 03/07/18 10:14 Dextrose (Dextrose 50%) 25 ml STAT PRN IV Hypoglycemia 02/05/18 10:15 03/07/18 10:14 Dextrose (Dextrose 50%) 50 ml STAT PRN IV Hypoglycemia 02/05/18 10:15 03/07/18 10:14 Heparin Sodium (Porcine) (Heparin 5000 units/ml) 5,000 units EVERY 12 HOURS SUBQ 02/05/18 21:00 03/07/18 20:59 02/06/18 09:36 Insulin Aspart (NovoLOG) BEFORE MEALS AND HS SUBQ 02/05/18 16:30 03/07/18 16:29 02/06/18 06:04 Morphine Sulfate (Morphine Sulfate) 1 mg Q4H PRN IVP For Pain 02/05/18 10:15 02/12/18 10:14 Ondansetron HCl (Zofran) 4 mg Q6H PRN IVP Nausea & Vomiting 02/05/18 10:15 03/07/18 10:14 Polyethylene Glycol (Miralax) 17 gm HSPRN PRN ORAL Constipation 02/05/18 10:15 03/07/18 10:14 Prednisone (predniSONE) 5 mg DAILY ORAL 02/06/18 09:00 03/08/18 08:59 02/06/18 08:36 Tacrolimus (Prograf) 0.5 mg EVERY 12 HOURS ORAL 02/05/18 21:00 03/07/18 20:59 02/06/18 08:35 Tamsulosin HCl (Flomax) 0.4 mg BEDTIME ORAL 02/05/18 21:00 03/07/18 20:59 02/05/18 20:47 Zolpidem Tartrate (Ambien) 5 mg HSPRN PRN ORAL Insomnia 02/05/18 10:15 02/12/18 10:14 Assessment/Plan Assessment/Plan Abx: IV Vancomycin x1 02/05 Ceftriaxone x1 02/05 Assessment: Acute encephalopathy- ?related to pain meds in the setting of renal dysfunction - r/o intracranial pathology- no signs or symptoms of infectious process -CT head: No evidence of acute intracranial hemorrhage, mass effect, midline shift or cortical edema. MRI may be obtained for more sensitive evaluation as clinically indicated. Atrophy and nonspecific periventricular hypoattenuation suggestive of chronic ischemic microvascular changes. Intracranial atherosclerosis. Hypothermia, resolved -no leukocytosis -u/a no pyuria -CXR: Cardiomegaly with interstitial opacification/edema, small left/trace right pleural effusions and left basilar atelectasis/consolidation. Findings may be related to CHF/fluid overload. Superimposed pneumonia should be excluded clinically. ?Seizure episode AI ESRD s/p kidney transplant about 3 years ago DM2 HTN Plan: -Continue to monitor off abx -02/05 Vanco and Ceftriaxone x1 -f/u cx -Monitor CBC/BMP, temperatures -aspiration precautions -f/u MRI brain -Consider Neuro eval Thank you for this consultation. Will continue to follow along with you. Discussed with CHRIS. Tia Ortega M.D. February 06, 2018 13:32
--- NOTE | 2018-02-06 16:45 | Cardiology Report ---
APPROVED REPORT EXAM: Two-dimensional and M-mode echocardiogram with Doppler and color Doppler. INDICATION Congestive Heart Failure M-Mode DIMENSIONS IVSd1.6 (0.7-1.1cm)Left Atrium (MM)4.1 (1.6-4.0cm) LVDd3.1 (3.5-5.6cm)Aortic Root3.7 (2.0-3.7cm) PWd1.4 (0.7-1.1cm)Aortic Cusp Exc.1.7 (1.5-2.0cm) IVSs2.2 cm LVDs2.1 (2.5-4.0cm) PWs1.7 cm Normal left ventricular chamber size, systolic function and wall motion . Left ventricular ejection fraction estimated to be 60%. Mild left ventricular hypertrophy by 2-D. Modearte circumferential pericardial effusion no chamber collapse to suggest tamponade All other cardiac chamber sizes are within normal limits. Focal aortic valve sclerosis with adequate cusp excursion. Mildly Thickened mitral valve leaflets with normal excursion. Mildly Mitral annulus and aortic root calcification. Normal pulmonic valve structure. Normal tricuspid valve structure. IVC at normal size with physiologic collapse. A color flow and spectral Doppler study was performed and revealed: No aortic regurgitation. Mild mitral regurgitation. Mild left ventricular diastolic dysfunction . Mild tricuspid regurgitation. Tricuspid systolic velocities suggests peak right ventricular systolic pressure of 29mmHg.
--- NOTE | 2018-02-06 16:57 | Cardiology Report ---
APPROVED REPORT EKG Measurement Heart [id number] Normal sinus rhythm Low voltage QRS Borderline ECG
[2018-02-06 20:00] VITALS: BP 150/69
--- NOTE | 2018-02-06 20:17 | Consultation ---
Consult Note Consult Note NEUROLOGY CONSULTATION: Full note dictated #[id number] 68 y/o, RH, HM who has a PH of HTN, DM, CHF, ESRD on HD, progressive gait problems leading to falls who has been living in a NH for the last 2 weeks. He was noted to be poorly responsive one morning and was thus brought [place] [facility] [place]. It was also assumed that he was poorly responsive due to a possible seizure. No one has witnessed him having a seizure. ON EXAM: Awake but not alert. Oriented to self only Moves all extremities on DP but generally weak DTRs globally diminished. IMPRESSION: Significantly encephalopathic. Multifactorial encephalopathy. Unclear if he has had a SZ or not. REC: No antiseizure medicine at this time. EEG MRI of brain Correct toxic/metabolic imbalances. Observe Juan Cortez M.D., M.S.P.H. JUAN CORTEZ February 06, 2018 20:17
--- NOTE | 2018-02-06 21:00 | Consultation ---
DATE OF CONSULTATION: 02/06/2018 NEUROLOGY CONSULTATION CONSULTING PHYSICIAN: Miquel Cortez M.D. REQUESTING PHYSICIAN: Le Bagley M.D. HISTORY: Mr. Figueroa Bullard is a 68-year-old, right-handed, gentleman, who does have a past history of hypertension, diabetes mellitus, congestive heart failure, and end stage renal disease for which he is hemodialysis dependent and also has had a renal transplant, and progressive gait problems leading to multiple falls, who has been living in the long term for the last two weeks or so. On 02/05/2018, he was noted to be poorly responsive in his long term and as a result of that, he was brought into the [facility] emergency room. It was assumed that he may be poorly responsive due to a possible seizure. No one actually witnessed him having a seizure. There is also no past history of seizures. This consultation was requested to evaluate the patient for his altered mental state and for possible seizure. PAST MEDICAL HISTORY: Significant for hypertension, diabetes mellitus, congestive heart failure, end-stage renal disease, and gait problems. FAMILY HISTORY: Significant for high blood pressure and diabetes mellitus in other family members. PERSONAL HISTORY: Home: He lives in a long term. Work: He is retired. Habits: There is no history of alcohol, tobacco, or illicit drug use at this point in time. The prior history is unavailable to us. PRESENT MEDICATIONS: Include carvedilol, clonidine, famotidine, prednisone, tacrolimus, heparin for DVT prophylaxis, insulin, Tylenol, morphine sulfate, MiraLAX, Zofran, Ambien, and DuoNeb. PHYSICAL EXAMINATION: GENERAL: He is a well-developed and well-nourished gentleman, lying in bed, in no acute distress. VITAL SIGNS: Pulse 100 per minute, blood pressure 157/77 mmHg, respirations 19 per minute, and temperature 97.7 degrees Fahrenheit. HEAD: Normocephalic and atraumatic. EENT: Examination benign. NECK: No neck rigidity was observed. NEUROLOGIC EXAMINATION: MENTAL STATUS EXAMINATION: He was awake, but not alert. He was oriented to self only. He was only able to say a few words. Further mental status testing was impossible. SPEECH: He had a mild dysarthria. LANGUAGE : Could not be tested adequately. CRANIAL NERVE EXAMINATION: II: He did not blink to threat on the right side, but did blink to threat on the left side indicating possible visual loss in the right eye. III, IV & : The external ocular movements were present on oculocephalic maneuvers. The pupils were 3 mm in diameter and nonreactive to light. V: He had normal facial sensations, and the temporales, masseters, and pterygoids functioned normally. VII: He had normal facial expressions and no facial asymmetry. VIII: He seemed to be able to hear well and had no nystagmus. IX: The palate moved symmetrically on phonation . X: He had no hoarseness of voice. XI: The sternocleidomastoids and trapezii functioned normally. XII: The tongue was in the midline without any fasciculations or atrophy. MOTOR SYSTEM: The tone was increased in all four extremities with gegenhalten. Examination of muscle mass revealed no focal wasting. He did however have generalized muscle wasting. Examination of power was impossible to perform on individual muscle groups. He did move all four extremities minimally on deep pain. He could not cooperate for further motor testing. SENSORY EXAMINATION: He responded to deep pain in all four extremities in a relatively symmetric manner. REFLEXES: Trace+ and bilaterally symmetrical at the biceps, triceps, brachioradialis, and knees and 0 at both ankles. The plantar responses were flexor bilaterally. COORDINATION, STANCE & GAIT: Could not be tested. DIAGNOSTIC IMPRESSION: 1. Mr. Figueroa Bullard is a 68-year-old, right-handed, gentleman, who does have a past history of hypertension, diabetes mellitus, congestive heart failure, end-stage renal disease, on hemodialysis, a kidney transplant, and progressive gait problems leading to falls, who has been living in a long term for the last two weeks or so. He was hospitalized on 02/05/2018 when he was found to be poorly responsive. It was assumed that he may have had a seizure. 2. On neurological examination, at this time, he does demonstrate significant problems with level of alertness and problems with global cerebral dysfunction. He also exhibits quadriparesis with minimal movements in all four extremities on deep painful stimuli. His deep tendon reflexes are globally diminished. 3. Laboratory data revealed that he is anemic with a hemoglobin of 9.8. His platelet count is low at 133,000. His chemistry panel reveals a BUN elevated at 80, creatinine elevated at 2.9, glucose elevated at 121, elevated GTT, AST, and alkaline phosphate. BNP elevated to 21,546. Hypoalbuminemia with an albumin of 1.6. TSH elevated at 4.63. A normal B12 and folate level. The urinalysis reveals 1+ leukocyte esterase, 5-10 red blood cells, and 2-4 white blood cells per high-power field. 4. The patient's history and neurological examination are most compatible with a significant toxic metabolic encephalopathy due to multiple toxic metabolic brain insults. It is unclear if he also has structural brain disease as a thorough neurological examination at this point in time is impossible. The history of a seizure is suspect. RECOMMENDATIONS: 1. Agree with management thus far. 2. At this point in time, no antiseizure medicine will be started. 3. An EEG will be ordered to evaluate the patient for the degree and type of cerebral dysfunction and to exclude ongoing ictal or interictal phenomena. 4. An MRI scan of the brain will be ordered to evaluate the patient for acute intracranial pathology. 5. Attempt should be made to correct all the patient's toxic metabolic imbalances. 6. The patient will be observed closely and depending on how he fares over the next day or so, further recommendations will be given. Thank you for entrusting me with the care of Mr. Bullard. I shall follow him with you. Miquel Cortez M.D., M.S.P.H. DR: HILDA JOB#: [id number] [facility]
[2018-02-06] MEDS: Carvedilol 12.5mg tab NG SCH (21:20)
--- NOTE | 2018-02-06 22:05 | Consultation ---
History of Present Illness General Date patient seen: Feb 05, 2018 Chief Complaint: Altered Level of Consciousness Present Illness HPI 68-year-old gentleman,with past history of hypertension, diabetes mellitus, congestive heart failure, and end-stage renal disease on hemodialysis dependent, and progressive gait problems. The pt is pw waxing and waning of consciousness, the ot is confused and according to sister recently had an episodes of seizure. The pt sister is the decision maker and has cognitive impairment. This is a late entry Allergies: Coded Allergies: No Known Allergies (Unverified , 02/05/18) Medication History Scheduled Aspirin* (Aspirin*), 81 MG ORAL DAILY, (Reported) Carvedilol (Coreg), 6.25 MG ORAL TWICE A DAY, (Reported) Clonidine Hcl* (Catapres*), 0.2 MG ORAL Q4HR, (Reported) Docusate Sodium (Docusate Sodium), 100 MG ORAL TWICE A DAY, (Reported) Esomeprazole Magnesium (Nexium), 40 MG ORAL DAILY, (Reported) Fluconazole (Fluconazole), 200 MG ORAL DAILY, (Reported) Insulin Glargine (Lantus), 0 SUBQ BEDTIME, (Reported) Prednisone (Prednisone), 5 MG PO ONCE, (Reported) Tacrolimus (Prograf), 0.5 MG PO BID, (Reported) Tamsulosin Hcl (Tamsulosin Hcl*), 0.4 MG ORAL BEDTIME, (Reported) Tramadol Hcl (Tramadol Hcl), 50 MG ORAL DAILY, (Reported) Vitamin B Cmplx/Vit C/Folic AC (Nephro-Fred Tablet), 1 TAB ORAL DAILY, (Reported ) Scheduled PRN Acetaminophen* (Acetaminophen 325MG Tablet*), 650 MG ORAL Q4H PRN for Mild Pain (Pain Scale 1-3), (Reported) Ondansetron (Zofran), 4 MG ORAL Q4HR PRN for Nausea & Vomiting, (Reported) Miscellaneous Medications Baclofen (Baclofen), 20 GM MC, (Reported) Patient History Limited by: medical condition History Provided By: Patient, Medical Record, PMD Healthcare decision maker sister Resuscitation status Full Code Advanced Directive on File No Past Medical/Surgical History Past Medical/Surgical History: (1) Altered level of consciousness (2) Diabetes mellitus (3) Chronic kidney insufficiency (4) History of hypertension (5) Acute encephalopathy Review of Systems Psychiatric: Reports: anxiety, hallucinations Physical Exam General Appearance: lethargic, confused, agitated Last 24 Hour Vital Signs Date Time Temp Pulse Resp B/P (MAP) Pulse Ox O2 Delivery O2 Flow Rate FiO2 02/06/18 21:20 87 150/69 02/06/18 20:00 110 02/06/18 20:00 96.6 87 22 150/69 96 Room Air 96.6 02/06/18 16:00 104 02/06/18 12:00 97.7 100 19 157/77 93 Room Air 97.7 02/06/18 12:00 114 02/06/18 08:34 107 154/102 02/06/18 08:00 112 02/06/18 08:00 98.6 107 21 154/102 97 Room Air 98.6 02/06/18 04:00 98.0 91 20 126/88 97 Room Air 98.0 02/06/18 04:00 91 02/06/18 00:00 97.6 92 20 135/99 97 Room Air 97.6 02/06/18 00:00 92 Intake and Output 02/05/18 02/06/18 19:00 07:00 Intake Total 1055 ml Output Total 225 ml 450 ml Balance 830 ml -450 ml IV Total 1055 ml Output Urine Total 225 ml 450 ml Laboratory Tests Test 02/06/18 08:10 White Blood Count 8.9 K/UL (4.8-10.8) Red Blood Count 3.02 M/UL (4.70-6.10) L Hemoglobin 9.8 G/DL (14.2-18.0) L Hematocrit 28.4 % (42.0-52.0) L Mean Corpuscular Volume 94 FL (80-99) Mean Corpuscular Hemoglobin 32.3 PG (27.0-31.0) H Mean Corpuscular Hemoglobin Concent 34.4 G/DL (32.0-36.0) Red Cell Distribution Width 16.6 % (11.6-14.8) H Platelet Count 133 K/UL (150-450) L Mean Platelet Volume 5.5 FL (6.5-10.1) L Neutrophils (%) (Auto) 73.8 % (45.0-75.0) Lymphocytes (%) (Auto) 14.6 % (20.0-45.0) L Monocytes (%) (Auto) 7.8 % (1.0-10.0) Eosinophils (%) (Auto) 3.2 % (0.0-3.0) H Basophils (%) (Auto) 0.6 % (0.0-2.0) Sodium Level 137 MMOL/L (136-145) Potassium Level 4.6 MMOL/L (3.5-5.1) Chloride Level 105 MMOL/L (98-107) Carbon Dioxide Level 21 MMOL/L (21-32) Anion Gap 11 mmol/L (5-15) Blood Urea Nitrogen 80 mg/dL (7-18) H Creatinine 2.9 MG/DL (0.55-1.30) H Estimat Glomerular Filtration Rate 21.8 mL/min (>60) Glucose Level 121 MG/DL (74-106) H Hemoglobin A1c 6.0 % (4.3-6.0) Uric Acid 8.3 MG/DL (2.6-7.2) H Calcium Level 9.2 MG/DL (8.5-10.1) Phosphorus Level 5.2 MG/DL (2.5-4.9) H Magnesium Level 2.4 MG/DL (1.8-2.4) Iron Level 40 ug/dL (50-175) L Total Iron Binding Capacity 145 ug/dL (250-450) L Percent Iron Saturation 28 % (15-50) Unsaturated Iron Binding 105 ug/dL (112-346) L Ferritin 1374 NG/ML (8-388) H Total Bilirubin 1.0 MG/DL (0.2-1.0) Gamma Glutamyl Transpeptidase 2354 U/L (5-85) H Aspartate Amino Transf (AST/SGOT) 53 U/L (15-37) H Alanine Aminotransferase (ALT/SGPT) 66 U/L (12-78) Alkaline Phosphatase 1303 U/L (46-116) H Ammonia 60 umol/L (11-32) H Total Creatine Kinase 31 U/L (26-308) Pro-B-Type Natriuretic Peptide 15753 pg/mL (0-125) H Total Protein 5.4 G/DL (6.4-8.2) L Albumin 1.6 G/DL (3.4-5.0) L Globulin 3.8 g/dL Albumin/Globulin Ratio 0.4 (1.0-2.7) L Triglycerides Level 272 MG/DL (30-150) H Cholesterol Level 198 MG/DL (< 200) LDL Cholesterol 109 mg/dL (<100) H HDL Cholesterol 33 MG/DL (40-60) L Cholesterol/HDL Ratio 6.0 (3.3-4.4) H Vitamin B12 Level 699 PG/ML (193-986) Folate 13.6 NG/ML (8.6-58.9) Thyroid Stimulating Hormone (TSH) 4.432 uiU/mL (0.358-3.740) Height (Feet): 5 Height (Inches): 6.00 Weight (Pounds): 145 Medications Current Medications Medications (Trade) Dose Ordered Sig/Manuel Route PRN Reason Start Time Stop Time Status Last Admin Dose Admin Acetaminophen (Tylenol) 650 mg Q4H PRN ORAL fever (temp>100.5F) 02/05/18 10:15 03/07/18 10:14 Albuterol/ Ipratropium (Albuterol/ Ipratropium) 3 ml Q6H PRN HHN dyspnea 02/05/18 10:15 02/10/18 10:14 Carvedilol (Coreg) 12.5 mg Q12HR NG 02/06/18 21:00 03/07/18 20:59 02/06/18 21:20 Clonidine HCl (Catapres Tab) 0.1 mg Q4H PRN NG For High BP 160 and above 02/06/18 14:15 03/07/18 10:14 Dextrose (Dextrose 50%) 25 ml STAT PRN IV Hypoglycemia 02/05/18 10:15 03/07/18 10:14 Dextrose (Dextrose 50%) 50 ml STAT PRN IV Hypoglycemia 02/05/18 10:15 03/07/18 10:14 Famotidine (Pepcid) 20 mg Q12HR GT 02/06/18 13:32 03/08/18 13:31 02/06/18 21:19 Heparin Sodium (Porcine) (Heparin 5000 units/ml) 5,000 units EVERY 12 HOURS SUBQ 02/05/18 21:00 03/07/18 20:59 02/06/18 21:19 Insulin Aspart (NovoLOG) BEFORE MEALS AND HS SUBQ 02/05/18 16:30 03/07/18 16:29 02/06/18 21:18 Morphine Sulfate (Morphine Sulfate) 1 mg Q4H PRN IVP For Pain 02/05/18 10:15 02/12/18 10:14 Ondansetron HCl (Zofran) 4 mg Q6H PRN IVP Nausea & Vomiting 02/05/18 10:15 03/07/18 10:14 Polyethylene Glycol (Miralax) 17 gm HSPRN PRN ORAL Constipation 02/05/18 10:15 03/07/18 10:14 Prednisone (predniSONE) 5 mg DAILY ORAL 02/06/18 09:00 03/08/18 08:59 02/06/18 08:36 Tacrolimus (Prograf) 0.5 mg EVERY 12 HOURS ORAL 02/05/18 21:00 03/07/18 20:59 02/06/18 21:19 Zolpidem Tartrate (Ambien) 5 mg HSPRN PRN ORAL Insomnia 02/05/18 10:15 02/12/18 10:14 Assessment/Plan Assessment/Plan encephalopathy -the pt lacks capacity to make decisions -zyprexa 2.5 [facility] Tonny Tang M.D. February 06, 2018 22:05
--- NOTE | 2018-02-06 22:07 | General Progress Note ---
Assessment/Plan Status: stable Assessment/Plan encephalopathy -the pt lacks capacity to make decisions -zyprexa 2.5 qhs Subjective Date patient seen: February 06, 2018 Neurologic/Psychiatric: Reports: anxiety, emotional problems Allergies: Coded Allergies: No Known Allergies (Unverified , 02/05/18) Objective Last 24 Hour Vital Signs Date Time Temp Pulse Resp B/P (MAP) Pulse Ox O2 Delivery O2 Flow Rate FiO2 02/06/18 21:20 87 150/69 02/06/18 20:00 110 02/06/18 20:00 96.6 87 22 150/69 96 Room Air 96.6 02/06/18 16:00 104 02/06/18 12:00 97.7 100 19 157/77 93 Room Air 97.7 02/06/18 12:00 114 02/06/18 08:34 107 154/102 02/06/18 08:00 112 02/06/18 08:00 98.6 107 21 154/102 97 Room Air 98.6 02/06/18 04:00 98.0 91 20 126/88 97 Room Air 98.0 02/06/18 04:00 91 02/06/18 00:00 97.6 92 20 135/99 97 Room Air 97.6 02/06/18 00:00 92 Intake and Output 02/05/18 02/06/18 19:00 07:00 Intake Total 1055 ml Output Total 225 ml 450 ml Balance 830 ml -450 ml IV Total 1055 ml Output Urine Total 225 ml 450 ml Laboratory Tests 02/06/18 08:10: White Blood Count 8.9, Red Blood Count 3.02L, Hemoglobin 9.8L, Hematocrit 28.4L , Mean Corpuscular Volume 94, Mean Corpuscular Hemoglobin 32.3H, Mean Corpuscular Hemoglobin Concent 34.4, Red Cell Distribution Width 16.6H, Platelet Count 133L, Mean Platelet Volume 5.5L, Neutrophils (%) (Auto) 73.8, Lymphocytes (%) (Auto) 14.6L, Monocytes (%) (Auto) 7.8, Eosinophils (%) (Auto) 3.2H, Basophils (%) (Auto) 0.6, Sodium Level 137, Potassium Level 4.6, Chloride Level 105, Carbon Dioxide Level 21, Anion Gap 11, Blood Urea Nitrogen 80H, Creatinine 2.9H, Estimat Glomerular Filtration Rate 21.8, Glucose Level 121H, Hemoglobin A1c 6.0, Uric Acid 8.3H, Calcium Level 9.2, Phosphorus Level 5.2H, Magnesium Level 2.4, Iron Level 40L, Total Iron Binding Capacity 145L, Percent Iron Saturation 28, Unsaturated Iron Binding 105L, Ferritin 1374H, Total Bilirubin 1.0, Gamma Glutamyl Transpeptidase 2354H, Aspartate Amino Transf (AST/ SGOT) 53H, Alanine Aminotransferase (ALT/SGPT) 66, Alkaline Phosphatase 1303H, Ammonia 60H, Total Creatine Kinase 31, Pro-B-Type Natriuretic Peptide 42139B, Total Protein 5.4L, Albumin 1.6L, Globulin 3.8, Albumin/Globulin Ratio 0.4L, Triglycerides Level 272H, Cholesterol Level 198, LDL Cholesterol 109H, HDL Cholesterol 33L, Cholesterol/HDL Ratio 6.0H, Vitamin B12 Level 699, Folate 13.6 , Thyroid Stimulating Hormone (TSH) 4.432H Height (Feet): 5 Height (Inches): 6.00 Weight (Pounds): 145 General Appearance: no apparent distress, lethargic, confused Tonny Tang M.D. February 06, 2018 22:07
[2018-02-07] VITALS: BP 149/78
[2018-02-07 04:36] VITALS: BP 151/96
[2018-02-07] MEDS: NovoLOG Insulin Flexpen SUBQ SCH ×4 (06:16→21:46)
[2018-02-07 08:00] VITALS: BP_SYST 148; BP_SYST 173; BP_DIAS 105; BP_DIAS 87
[2018-02-07 08:18] LABS: BASOPHILS % (AUTO) 0.5 % (0.0-2.0); EOSINOPHILS % (AUTO) 3.1 % (0.0-3.0); HEMATOCRIT 27.4 % (42.0-52.0); HEMOGLOBIN 9.3 G/DL (14.2-18.0); LYMPHOCYTES % (AUTO) 17.6 % (20.0-45.0); MEAN CORPUSCULAR VOLUME 94 FL (80-99); MONOCYTES % (AUTO) 10.5 % (1.0-10.0); NEUTROPHILS % (AUTO) 68.3 % (45.0-75.0); PLATELET COUNT 143 K/UL (150-450); RED BLOOD COUNT 2.91 M/UL (4.70-6.10); RED CELL DISTRIBUTION WIDTH 16.1 % (11.6-14.8); WHITE BLOOD COUNT 8.1 K/UL (4.8-10.8)
[2018-02-07 08:25] LABS: INR 0.9 (0.9-1.1)
[2018-02-07] MEDS: Heparin 5000 units/ml inj SUBQ SCH ×2 (09:00→21:00)
[2018-02-07] MEDS: Carvedilol 12.5mg tab NG SCH (09:23)
[2018-02-07 10:25] LABS: ANION GAP 7 mmol/L (5-15); BLOOD UREA NITROGEN 84 mg/dL (7-18); CARBON DIOXIDE 25 MMOL/L (21-32); CHLORIDE 105 MMOL/L (98-107); CREATININE 3.2 MG/DL (0.55-1.30); POTASSIUM 4.7 MMOL/L (3.5-5.1); SODIUM 137 MMOL/L (136-145)
[2018-02-07 10:37] LABS: ALANINE AMINOTRANSFERASE 56 U/L (12-78); ALBUMIN 1.6 G/DL (3.4-5.0); ALBUMIN/GLOBULIN RATIO 0.4 (1.0-2.7); ALKALINE PHOSPHATASE 1389 U/L (46-116); ASPARTATE AMINO TRANSFERASE 49 U/L (15-37); BILIRUBIN,TOTAL 0.8 MG/DL (0.2-1.0); PHOSPHORUS 5.7 MG/DL (2.5-4.9)
[2018-02-07 12:00] VITALS: BP 150/85
--- NOTE | 2018-02-07 12:19 | Pulmonology Progress Note ---
Assessment/Plan Problems: (1) Acute encephalopathy (2) Chronic kidney insufficiency (3) History of hypertension (4) Hx of kidney transplant (5) Diabetes mellitus Assessment/Plan MRI needs to be redone, Pt hs NG tube now neuro evaluation appreciated family would agree with Feeding Tube if pt can't swallow siding scale monitor BP Subjective ROS Limited/Unobtainable: Yes Interval Events: no new changes, Constitutional: Reports: no symptoms Allergies: Coded Allergies: No Known Allergies (Unverified , 02/05/18) Objective Last 24 Hour Vital Signs Date Time Temp Pulse Resp B/P (MAP) Pulse Ox O2 Delivery O2 Flow Rate FiO2 02/07/18 09:23 93 173/105 02/07/18 09:00 94 02/07/18 08:00 97.2 93 20 173/105 98 Room Air 97.2 02/07/18 04:36 97.7 94 19 151/96 97 Room Air 97.7 02/07/18 04:00 92 02/07/18 00:00 77 02/07/18 00:00 97.4 92 22 149/78 97 Room Air 97.4 02/06/18 21:20 87 150/69 02/06/18 20:00 110 02/06/18 20:00 96.6 87 22 150/69 96 Room Air 96.6 02/06/18 16:00 104 Intake and Output 02/06/18 02/07/18 19:00 07:00 Intake Total 30 ml 300 ml Output Total 300 ml 500 ml Balance -270 ml -200 ml Intake Oral 20 ml Tube Feeding 10 ml 240 ml Other 60 ml Output Urine Total 300 ml 500 ml General Appearance: WD/WN HEENT: normocephalic, atraumatic Respiratory/Chest: chest wall non-tender, lungs clear Cardiovascular: normal peripheral pulses, normal rate Abdomen: normal bowel sounds, soft, non tender Genitourinary: normal external genitalia Extremities: no cyanosis Skin: no rash Neurologic/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 Complete 02/05/18 11:45 Rectum VRE Culture - Final Enterococcus Faecium - Vre Complete Laboratory Tests 02/07/18 08:00: White Blood Count 8.1, Red Blood Count 2.91L, Hemoglobin 9.3L, Hematocrit 27.4L , Mean Corpuscular Volume 94, Mean Corpuscular Hemoglobin 32.0H, Mean Corpuscular Hemoglobin Concent 33.9, Red Cell Distribution Width 16.1H, Platelet Count 143L, Mean Platelet Volume 5.7L, Neutrophils (%) (Auto) 68.3, Lymphocytes (%) (Auto) 17.6L, Monocytes (%) (Auto) 10.5H, Eosinophils (%) (Auto ) 3.1H, Basophils (%) (Auto) 0.5, Differential Total Cells Counted 100, Neutrophils % (Manual) 76H, Lymphocytes % (Manual) 14L, Monocytes % (Manual) 8, Eosinophils % (Manual) 2, Basophils % (Manual) 0, Band Neutrophils 0, Platelet Estimate DecreasedL, Platelet Morphology Normal, Erythrocyte Sedimentation Rate 115H, Reticulocyte Count 2.0, Prothrombin Time 9.6, Prothromb Time International Ratio 0.9, Activated Partial Thromboplast Time 34H, Sodium Level 137, Potassium Level 4.7, Chloride Level 105, Carbon Dioxide Level 25, Anion Gap 7, Blood Urea Nitrogen 84H, Creatinine 3.2H, Estimat Glomerular Filtration Rate 19.5, Glucose Level 170H, Uric Acid 8.7H, Calcium Level 9.0, Phosphorus Level 5.7H, Magnesium Level 2.6H, Total Bilirubin 0.8, Aspartate Amino Transf ( AST/SGOT) 49H, Alanine Aminotransferase (ALT/SGPT) 56, Alkaline Phosphatase 1389H, Lactate Dehydrogenase 449H, Total Protein 5.7L, Albumin 1.6L, Globulin 4.1, Albumin/Globulin Ratio 0.4L Current Medications Medications (Trade) Dose Ordered Sig/Manuel Route PRN Reason Start Time Stop Time Status Last Admin Dose Admin Acetaminophen (Tylenol) 650 mg Q4H PRN ORAL fever (temp>100.5F) 02/05/18 10:15 03/07/18 10:14 Albuterol/ Ipratropium (Albuterol/ Ipratropium) 3 ml Q6H PRN HHN dyspnea 4/30/18 10:15 02/10/18 10:14 Carvedilol (Coreg) 12.5 mg Q12HR NG 02/06/18 21:00 03/07/18 20:59 02/07/18 09:23 Clonidine HCl (Catapres Tab) 0.1 mg Q4H PRN NG For High BP 160 and above 02/06/18 14:15 03/07/18 10:14 Dextrose (Dextrose 50%) 25 ml STAT PRN IV Hypoglycemia 02/05/18 10:15 03/07/18 10:14 Dextrose (Dextrose 50%) 50 ml STAT PRN IV Hypoglycemia 02/05/18 10:15 03/07/18 10:14 Famotidine (Pepcid) 20 mg Q12HR GT 02/06/18 13:32 03/08/18 13:31 02/07/18 09:04 Heparin Sodium (Porcine) (Heparin 5000 units/ml) 5,000 units EVERY 12 HOURS SUBQ 02/05/18 21:00 03/07/18 20:59 02/06/18 21:19 Insulin Aspart (NovoLOG) BEFORE MEALS AND HS SUBQ 02/05/18 16:30 03/07/18 16:29 02/07/18 12:01 Morphine Sulfate (Morphine Sulfate) 1 mg Q4H PRN IVP For Pain 02/05/18 10:15 02/12/18 10:14 02/06/18 23:14 Olanzapine (ZyPREXA) 2.5 mg BEDTIME ORAL 02/06/18 22:13 03/08/18 22:12 02/06/18 23:13 Ondansetron HCl (Zofran) 4 mg Q6H PRN IVP Nausea & Vomiting 02/05/18 10:15 03/07/18 10:14 Polyethylene Glycol (Miralax) 17 gm HSPRN PRN ORAL Constipation 02/05/18 10:15 03/07/18 10:14 Prednisone (predniSONE) 5 mg DAILY ORAL 02/07/18 10:00 03/08/18 09:59 02/07/18 09:40 Tacrolimus (Prograf) 0.5 mg EVERY 12 HOURS ORAL 02/05/18 21:00 03/07/18 20:59 02/07/18 09:05 Zolpidem Tartrate (Ambien) 5 mg HSPRN PRN ORAL Insomnia 02/05/18 10:15 02/12/18 10:14 Le Bagley MD February 07, 2018 12:19
--- NOTE | 2018-02-07 12:30 | General Progress Note ---
Assessment/Plan Status: stable, progressing Assessment/Plan encephalopathy -the pt lacks capacity to make decisions -zyprexa 2.5 qh -sister signed consent form for G-tube Subjective Date patient seen: February 07, 2018 Neurologic/Psychiatric: Reports: anxiety, depressed, emotional problems Allergies: Coded Allergies: No Known Allergies (Unverified , 02/05/18) Objective Last 24 Hour Vital Signs Date Time Temp Pulse Resp B/P (MAP) Pulse Ox O2 Delivery O2 Flow Rate FiO2 02/07/18 09:23 93 173/105 02/07/18 09:00 94 02/07/18 08:00 97.2 93 20 173/105 98 Room Air 97.2 02/07/18 04:36 97.7 94 19 151/96 97 Room Air 97.7 02/07/18 04:00 92 02/07/18 00:00 77 02/07/18 00:00 97.4 92 22 149/78 97 Room Air 97.4 02/06/18 21:20 87 150/69 02/06/18 20:00 110 02/06/18 20:00 96.6 87 22 150/69 96 Room Air 96.6 02/06/18 16:00 104 Intake and Output 02/06/18 02/07/18 19:00 07:00 Intake Total 30 ml 300 ml Output Total 300 ml 500 ml Balance -270 ml -200 ml Intake Oral 20 ml Tube Feeding 10 ml 240 ml Other 60 ml Output Urine Total 300 ml 500 ml Laboratory Tests 02/07/18 08:00: White Blood Count 8.1, Red Blood Count 2.91L, Hemoglobin 9.3L, Hematocrit 27.4L , Mean Corpuscular Volume 94, Mean Corpuscular Hemoglobin 32.0H, Mean Corpuscular Hemoglobin Concent 33.9, Red Cell Distribution Width 16.1H, Platelet Count 143L, Mean Platelet Volume 5.7L, Neutrophils (%) (Auto) 68.3, Lymphocytes (%) (Auto) 17.6L, Monocytes (%) (Auto) 10.5H, Eosinophils (%) (Auto ) 3.1H, Basophils (%) (Auto) 0.5, Differential Total Cells Counted 100, Neutrophils % (Manual) 76H, Lymphocytes % (Manual) 14L, Monocytes % (Manual) 8, Eosinophils % (Manual) 2, Basophils % (Manual) 0, Band Neutrophils 0, Platelet Estimate DecreasedL, Platelet Morphology Normal, Erythrocyte Sedimentation Rate 115H, Reticulocyte Count 2.0, Prothrombin Time 9.6, Prothromb Time International Ratio 0.9, Activated Partial Thromboplast Time 34H, Sodium Level 137, Potassium Level 4.7, Chloride Level 105, Carbon Dioxide Level 25, Anion Gap 7, Blood Urea Nitrogen 84H, Creatinine 3.2H, Estimat Glomerular Filtration Rate 19.5, Glucose Level 170H, Uric Acid 8.7H, Calcium Level 9.0, Phosphorus Level 5.7H, Magnesium Level 2.6H, Total Bilirubin 0.8, Aspartate Amino Transf ( AST/SGOT) 49H, Alanine Aminotransferase (ALT/SGPT) 56, Alkaline Phosphatase 1389H, Lactate Dehydrogenase 449H, Total Protein 5.7L, Albumin 1.6L, Globulin 4.1, Albumin/Globulin Ratio 0.4L Height (Feet): 5 Height (Inches): 6.00 Weight (Pounds): 145 General Appearance: WD/WN, no apparent distress, alert, confused Tonny Tagn M.D. February 07, 2018 12:30
--- NOTE | 2018-02-07 13:43 | Diagnostic Imaging Report ---
Indication: 68-year-old altered mental status Technique: The head was imaged in a 1.5 Gerda magnet. Sequences obtained include sagittal and axial T1 FLAIR, axial T2 fast spin echo with fat saturation, axial T2 FLAIR, diffusion and ADC map. Comparison: None Findings: There is mild prominence of the sulci, ventricles, and basal cisterns consistent with atrophy. Mild, nonspecific T2 hyperintensity noted within white matter. This may be due to chronic small vessel disease. There is no restricted diffusion. Farias-white differentiation is normal. There is no mass effect, midline shift, edema, or hemorrhage. There are no abnormal extra-axial or intra-axial fluid collections. The corpus callosum and sella are unremarkable. The brainstem and cerebellum are unremarkable. Bone marrow signal within the visualized osseous structures appears age appropriate and unremarkable otherwise. Impression: No acute intracranial findings. Mild atrophy and evidence of chronic small vessel disease involving white matter tracts.
--- NOTE | 2018-02-07 15:33 | Infectious Diseases Prog Note ---
Assessment/Plan Assessment/Plan Assessment: Acute encephalopathy- ?related to pain meds in the setting of renal dysfunction - r/o intracranial pathology- no signs or symptoms of infectious process -Brain MRI: No acute intracranial findings. Mild atrophy and evidence of chronic small vessel disease involving white matter tracts. -CT head: No evidence of acute intracranial hemorrhage, mass effect, midline shift or cortical edema. MRI may be obtained for more sensitive evaluation as clinically indicated. Atrophy and nonspecific periventricular hypoattenuation suggestive of chronic ischemic microvascular changes. Intracranial atherosclerosis. Hypothermia, resolved -no leukocytosis -u/a no pyuria -CXR: Cardiomegaly with interstitial opacification/edema, small left/trace right pleural effusions and left basilar atelectasis/consolidation. Findings may be related to CHF/fluid overload. Superimposed pneumonia should be excluded clinically. -Bcx NTD ?Seizure episode AI, worsening ESRD s/p kidney transplant about 3 years ago DM2 HTN Plan: -Continue to monitor off abx -02/05 Vanco and Ceftriaxone x1 -f/u cx -Monitor CBC/BMP, temperatures -aspiration precautions -Neuro f/u Thank you for this consultation. Will continue to follow along with you. Discussed with RN. Subjective Allergies: Coded Allergies: No Known Allergies (Unverified , 02/05/18) Subjective afebrile no leukocytosis off abx Bcx NTD Objective Vital Signs Last 24 Hour Vital Signs Date Time Temp Pulse Resp B/P (MAP) Pulse Ox O2 Delivery O2 Flow Rate FiO2 02/07/18 12:00 90 02/07/18 09:23 93 173/105 02/07/18 09:00 94 02/07/18 08:00 97.2 93 20 173/105 98 Room Air 97.2 02/07/18 04:36 97.7 94 19 151/96 97 Room Air 97.7 02/07/18 04:00 92 02/07/18 00:00 77 02/07/18 00:00 97.4 92 22 149/78 97 Room Air 97.4 02/06/18 21:20 87 150/69 02/06/18 20:00 110 02/06/18 20:00 96.6 87 22 150/69 96 Room Air 96.6 02/06/18 16:00 104 Height (Feet): 5 Height (Inches): 6.00 Weight (Pounds): 145 Objective General Appearance: WD/WN, no apparent distress Lines, tubes and drains: peripheral HEENT: normocephalic, atraumatic Neck: non-tender, normal alignment Respiratory/Chest: chest wall non-tender, lungs clear, normal breath sounds Cardiovascular/Chest: normal rate Abdomen: normal bowel sounds, non tender Extremities: trace edema, bruises, ecchymosis Microbiology Date/Time Source Procedure Growth Status 02/05/18 09:00 Blood Blood Culture - Preliminary NO GROWTH AFTER 24 HOURS Resulted 02/05/18 08:00 Blood Blood Culture - Preliminary NO GROWTH AFTER 24 HOURS Resulted 02/05/18 11:45 Nasal Nares MRSA Culture - Final NO METHICILLIN RESISTANT STAPH AUREUS... Complete 02/05/18 11:45 Rectum VRE Culture - Final Enterococcus Faecium - Vre Complete Laboratory Tests Test 02/07/18 08:00 White Blood Count 8.1 K/UL (4.8-10.8) Red Blood Count 2.91 M/UL (4.70-6.10) L Hemoglobin 9.3 G/DL (14.2-18.0) L Hematocrit 27.4 % (42.0-52.0) L Mean Corpuscular Volume 94 FL (80-99) Mean Corpuscular Hemoglobin 32.0 PG (27.0-31.0) H Mean Corpuscular Hemoglobin Concent 33.9 G/DL (32.0-36.0) Red Cell Distribution Width 16.1 % (11.6-14.8) H Platelet Count 143 K/UL (150-450) L Mean Platelet Volume 5.7 FL (6.5-10.1) L Neutrophils (%) (Auto) 68.3 % (45.0-75.0) Lymphocytes (%) (Auto) 17.6 % (20.0-45.0) L Monocytes (%) (Auto) 10.5 % (1.0-10.0) H Eosinophils (%) (Auto) 3.1 % (0.0-3.0) H Basophils (%) (Auto) 0.5 % (0.0-2.0) Differential Total Cells Counted 100 Neutrophils % (Manual) 76 % (45-75) H Lymphocytes % (Manual) 14 % (20-45) L Monocytes % (Manual) 8 % (1-10) Eosinophils % (Manual) 2 % (0-3) Basophils % (Manual) 0 % (0-2) Band Neutrophils 0 % (0-8) Platelet Estimate Decreased L Platelet Morphology Normal Erythrocyte Sedimentation Rate 115 MM/HR (0-20) H Reticulocyte Count 2.0 % (0.0-2.0) Prothrombin Time 9.6 SEC (9.30-11.50) Prothromb Time International Ratio 0.9 (0.9-1.1) Activated Partial Thromboplast Time 34 SEC (23-33) H Sodium Level 137 MMOL/L (136-145) Potassium Level 4.7 MMOL/L (3.5-5.1) Chloride Level 105 MMOL/L (98-107) Carbon Dioxide Level 25 MMOL/L (21-32) Anion Gap 7 mmol/L (5-15) Blood Urea Nitrogen 84 mg/dL (7-18) H Creatinine 3.2 MG/DL (0.55-1.30) H Estimat Glomerular Filtration Rate 19.5 mL/min (>60) Glucose Level 170 MG/DL (74-106) H Uric Acid 8.7 MG/DL (2.6-7.2) H Calcium Level 9.0 MG/DL (8.5-10.1) Phosphorus Level 5.7 MG/DL (2.5-4.9) H Magnesium Level 2.6 MG/DL (1.8-2.4) H Total Bilirubin 0.8 MG/DL (0.2-1.0) Aspartate Amino Transf (AST/SGOT) 49 U/L (15-37) H Alanine Aminotransferase (ALT/SGPT) 56 U/L (12-78) Alkaline Phosphatase 1389 U/L (46-116) H Lactate Dehydrogenase 449 U/L (81-234) H Total Protein 5.7 G/DL (6.4-8.2) L Albumin 1.6 G/DL (3.4-5.0) L Globulin 4.1 g/dL Albumin/Globulin Ratio 0.4 (1.0-2.7) L Current Medications Medications (Trade) Dose Ordered Sig/Manuel Route PRN Reason Start Time Stop Time Status Last Admin Dose Admin Acetaminophen (Tylenol) 650 mg Q4H PRN ORAL fever (temp>100.5F) 02/05/18 10:15 03/07/18 10:14 Albuterol/ Ipratropium (Albuterol/ Ipratropium) 3 ml Q6H PRN HHN dyspnea 02/05/18 10:15 02/10/18 10:14 Carvedilol (Coreg) 12.5 mg Q12HR NG 02/06/18 21:00 03/07/18 20:59 02/07/18 09:23 Clonidine HCl (Catapres Tab) 0.1 mg Q4H PRN NG For High BP 160 and above 02/06/18 14:15 03/07/18 10:14 Dextrose (Dextrose 50%) 25 ml STAT PRN IV Hypoglycemia 02/05/18 10:15 03/07/18 10:14 Dextrose (Dextrose 50%) 50 ml STAT PRN IV Hypoglycemia 02/05/18 10:15 03/07/18 10:14 Famotidine (Pepcid) 20 mg Q12HR GT 02/06/18 13:32 03/08/18 13:31 02/07/18 09:04 Heparin Sodium (Porcine) (Heparin 5000 units/ml) 5,000 units EVERY 12 HOURS SUBQ 02/05/18 21:00 03/07/18 20:59 02/06/18 21:19 Insulin Aspart (NovoLOG) BEFORE MEALS AND HS SUBQ 02/05/18 16:30 03/07/18 16:29 02/07/18 12:01 Morphine Sulfate (Morphine Sulfate) 1 mg Q4H PRN IVP For Pain 02/05/18 10:15 02/12/18 10:14 02/06/18 23:14 Olanzapine (ZyPREXA) 2.5 mg BEDTIME ORAL 02/06/18 22:13 03/08/18 22:12 02/06/18 23:13 Ondansetron HCl (Zofran) 4 mg Q6H PRN IVP Nausea & Vomiting 02/05/18 10:15 03/07/18 10:14 Polyethylene Glycol (Miralax) 17 gm HSPRN PRN ORAL Constipation 02/05/18 10:15 03/07/18 10:14 Prednisone (predniSONE) 5 mg DAILY ORAL 02/07/18 10:00 03/08/18 09:59 02/07/18 09:40 Tacrolimus (Prograf) 0.5 mg EVERY 12 HOURS ORAL 02/05/18 21:00 03/07/18 20:59 02/07/18 09:05 Zolpidem Tartrate (Ambien) 5 mg HSPRN PRN ORAL Insomnia 02/05/18 10:15 02/12/18 10:14 Tia Ortega M.D. February 07, 2018 15:33
--- NOTE | 2018-02-07 15:58 | Nephrology Progress Note ---
Assessment/Plan Problem List: (1) Acute encephalopathy (2) Chronic kidney insufficiency (3) History of hypertension Assessment Renal failure- Appears mainly prerenal, likely with underlying renal worsened previous kidney transplant acute encephalopathy previous multiple transfusions hypoalbuminemia 4+ proteinuria left arm swelling adjust bp meds Plan Plan: change feeding to Nepro ? PEG ID eval? 2D Echo Noted Avoid nephrotoxics monitor renal parameters venous duplex left arm Neg 24 h urine for total Protein Subjective ROS Limited/Unobtainable: No Constitutional: Reports: malaise Objective Objective Last 24 Hour Vital Signs Date Time Temp Pulse Resp B/P (MAP) Pulse Ox O2 Delivery O2 Flow Rate FiO2 02/07/18 12:00 90 02/07/18 09:23 93 173/105 02/07/18 09:00 94 02/07/18 08:00 97.2 93 20 173/105 98 Room Air 97.2 02/07/18 04:36 97.7 94 19 151/96 97 Room Air 97.7 02/07/18 04:00 92 02/07/18 00:00 77 02/07/18 00:00 97.4 92 22 149/78 97 Room Air 97.4 02/06/18 21:20 87 150/69 02/06/18 20:00 110 02/06/18 20:00 96.6 87 22 150/69 96 Room Air 96.6 02/06/18 16:00 104 Intake and Output 02/06/18 02/07/18 19:00 07:00 Intake Total 30 ml 300 ml Output Total 300 ml 500 ml Balance -270 ml -200 ml Intake Oral 20 ml Tube Feeding 10 ml 240 ml Other 60 ml Output Urine Total 300 ml 500 ml Laboratory Tests 02/07/18 08:00: White Blood Count 8.1, Red Blood Count 2.91L, Hemoglobin 9.3L, Hematocrit 27.4L , Mean Corpuscular Volume 94, Mean Corpuscular Hemoglobin 32.0H, Mean Corpuscular Hemoglobin Concent 33.9, Red Cell Distribution Width 16.1H, Platelet Count 143L, Mean Platelet Volume 5.7L, Neutrophils (%) (Auto) 68.3, Lymphocytes (%) (Auto) 17.6L, Monocytes (%) (Auto) 10.5H, Eosinophils (%) (Auto ) 3.1H, Basophils (%) (Auto) 0.5, Differential Total Cells Counted 100, Neutrophils % (Manual) 76H, Lymphocytes % (Manual) 14L, Monocytes % (Manual) 8, Eosinophils % (Manual) 2, Basophils % (Manual) 0, Band Neutrophils 0, Platelet Estimate DecreasedL, Platelet Morphology Normal, Erythrocyte Sedimentation Rate 115H, Reticulocyte Count 2.0, Prothrombin Time 9.6, Prothromb Time International Ratio 0.9, Activated Partial Thromboplast Time 34H, Sodium Level 137, Potassium Level 4.7, Chloride Level 105, Carbon Dioxide Level 25, Anion Gap 7, Blood Urea Nitrogen 84H, Creatinine 3.2H, Estimat Glomerular Filtration Rate 19.5, Glucose Level 170H, Uric Acid 8.7H, Calcium Level 9.0, Phosphorus Level 5.7H, Magnesium Level 2.6H, Total Bilirubin 0.8, Aspartate Amino Transf ( AST/SGOT) 49H, Alanine Aminotransferase (ALT/SGPT) 56, Alkaline Phosphatase 1389H, Lactate Dehydrogenase 449H, Total Protein 5.7L, Albumin 1.6L, Globulin 4.1, Albumin/Globulin Ratio 0.4L Height (Feet): 5 Height (Inches): 6.00 Weight (Pounds): 145 General Appearance: no apparent distress Respiratory/Chest: decreased breath sounds Abdomen: soft MELISA HOYT February 07, 2018 15:58
[2018-02-07] MEDS: Renvela 800mg Pkt NG SCH (17:37)
[2018-02-07 20:00] VITALS: BP 153/49
[2018-02-07] MEDS: Carvedilol 25mg Tab NG SCH (21:35)
--- NOTE | 2018-02-07 22:48 | Neurology Progress Note ---
Interim History Interim History Interim History Mr. Bullard is awake but not alert. When asked any questions all he says is "Papa Papa." He is unable to communicate. He continues to be generally weak. Review of Systems Neuro Review of Systems Unable to obtain. Objective Physical Exam Last Vital Signs Date Time Temp Pulse Resp B/P (MAP) Pulse Ox O2 Delivery O2 Flow Rate FiO2 02/07/18 21:35 98 153/49 02/07/18 20:00 98.1 20 98 Room Air 98.1 02/05/18 08:09 2.0 Laboratory Tests Test 02/07/18 08:00 White Blood Count 8.1 K/UL (4.8-10.8) Red Blood Count 2.91 M/UL (4.70-6.10) L Hemoglobin 9.3 G/DL (14.2-18.0) L Hematocrit 27.4 % (42.0-52.0) L Mean Corpuscular Volume 94 FL (80-99) Mean Corpuscular Hemoglobin 32.0 PG (27.0-31.0) H Mean Corpuscular Hemoglobin Concent 33.9 G/DL (32.0-36.0) Red Cell Distribution Width 16.1 % (11.6-14.8) H Platelet Count 143 K/UL (150-450) L Mean Platelet Volume 5.7 FL (6.5-10.1) L Neutrophils (%) (Auto) 68.3 % (45.0-75.0) Lymphocytes (%) (Auto) 17.6 % (20.0-45.0) L Monocytes (%) (Auto) 10.5 % (1.0-10.0) H Eosinophils (%) (Auto) 3.1 % (0.0-3.0) H Basophils (%) (Auto) 0.5 % (0.0-2.0) Differential Total Cells Counted 100 Neutrophils % (Manual) 76 % (45-75) H Lymphocytes % (Manual) 14 % (20-45) L Monocytes % (Manual) 8 % (1-10) Eosinophils % (Manual) 2 % (0-3) Basophils % (Manual) 0 % (0-2) Band Neutrophils 0 % (0-8) Platelet Estimate Decreased L Platelet Morphology Normal Erythrocyte Sedimentation Rate 115 MM/HR (0-20) H Reticulocyte Count 2.0 % (0.0-2.0) Prothrombin Time 9.6 SEC (9.30-11.50) Prothromb Time International Ratio 0.9 (0.9-1.1) Activated Partial Thromboplast Time 34 SEC (23-33) H Sodium Level 137 MMOL/L (136-145) Potassium Level 4.7 MMOL/L (3.5-5.1) Chloride Level 105 MMOL/L (98-107) Carbon Dioxide Level 25 MMOL/L (21-32) Anion Gap 7 mmol/L (5-15) Blood Urea Nitrogen 84 mg/dL (7-18) H Creatinine 3.2 MG/DL (0.55-1.30) H Estimat Glomerular Filtration Rate 19.5 mL/min (>60) Glucose Level 170 MG/DL (74-106) H Uric Acid 8.7 MG/DL (2.6-7.2) H Calcium Level 9.0 MG/DL (8.5-10.1) Phosphorus Level 5.7 MG/DL (2.5-4.9) H Magnesium Level 2.6 MG/DL (1.8-2.4) H Total Bilirubin 0.8 MG/DL (0.2-1.0) Aspartate Amino Transf (AST/SGOT) 49 U/L (15-37) H Alanine Aminotransferase (ALT/SGPT) 56 U/L (12-78) Alkaline Phosphatase 1389 U/L (46-116) H Lactate Dehydrogenase 449 U/L (81-234) H C-Reactive Protein, Quantitative 30.9 mg/dL (0.00-0.90) H Total Protein 5.7 G/DL (6.4-8.2) L Albumin 1.6 G/DL (3.4-5.0) L Globulin 4.1 g/dL Albumin/Globulin Ratio 0.4 (1.0-2.7) L Neurologic Exam Objective PHYSICAL EXAMINATION: GENERAL: He is a well-developed and well-nourished gentleman, lying in bed, in no acute distress. HEAD: Normocephalic and atraumatic. EENT: Examination benign. NECK: No neck rigidity was observed. NEUROLOGIC EXAMINATION: MENTAL STATUS EXAMINATION: He was awake but not alert. He was only able to say Papa Papa. Further mental status testing was impossible. SPEECH: He had a mild dysarthria. LANGUAGE : Could not be tested adequately. CRANIAL NERVE EXAMINATION: II: He did not blink to threat on the right side, but did blink to threat on the left side indicating possible visual loss in the right eye. III, IV & : The external ocular movements were present on oculocephalic maneuvers. The pupils were 3 mm in diameter and nonreactive to light. V: He had normal facial sensations, and the temporales, masseters, and pterygoids functioned normally. VII: He had normal facial expressions and no facial asymmetry. VIII: He seemed to be able to hear well and had no nystagmus. IX: The palate moved symmetrically on phonation . X: He had no hoarseness of voice. XI: The sternocleidomastoids and trapezii functioned normally. XII: The tongue was in the midline without any fasciculations or atrophy. MOTOR SYSTEM: The tone was increased in all four extremities with gegenhalten. Examination of muscle mass revealed no focal wasting. He did however have generalized muscle wasting. Examination of power was impossible to perform on individual muscle groups. He did move all four extremities minimally on deep pain. He could not cooperate for further motor testing. SENSORY EXAMINATION: He responded to deep pain in all four extremities in a relatively symmetric manner. REFLEXES: Trace+ and bilaterally symmetrical at the biceps, triceps, brachioradialis, and knees and 0 at both ankles. The plantar responses were flexor bilaterally. COORDINATION, STANCE & GAIT: Could not be tested. Impression/Recommendations Diagnostic Impression 1. Mr. Figueroa Bullard is a 68-year-old, right-handed, gentleman, who does have a past history of hypertension, diabetes mellitus, congestive heart failure , end-stage renal disease, on hemodialysis, a kidney transplant, and progressive gait problems leading to falls, who has been living in a jail for the last two weeks or so. He was hospitalized on 02/05/2018 when he was found to be poorly responsive. It was assumed that he may have had a seizure. 2. He is awake but not alert. When asked any questions all he says is "Papa Papa." He is unable to communicate. He continues to be generally weak. 3. On neurological examination, at this time, he does demonstrate significant problems with level of alertness and problems with global cerebral dysfunction. He also exhibits quadriparesis with minimal movements in all four extremities on deep painful stimuli. His deep tendon reflexes are globally diminished. 4. Laboratory data revealed that he is anemic with a hemoglobin of 9.8. His platelet count is low at 133,000. His chemistry panel reveals a BUN elevated at 80, creatinine elevated at 2.9, glucose elevated at 121, elevated GTT, AST, and alkaline phosphate. BNP elevated to 21,546. Hypoalbuminemia with an albumin of 1.6. TSH elevated at 4.63. A normal B12 and folate level. The urinalysis reveals 1+ leukocyte esterase, 5-10 red blood cells, and 2-4 white blood cells per high-power field. 5. The EEG reveals a moderately severe toxic/metabolic encephalopathy. No inter- ictal discharges were seen. 6. The MRI of the brain revealed "mild atrophy and evidence of chronic small vessel disease involving white matter tracts, but no acute pathology." 7. The patient's history and neurological examination are most compatible with a significant toxic metabolic encephalopathy due to multiple toxic metabolic brain insults. The history of a seizure is suspect. Recommendations 1. Agree with management thus far. 2. No antiseizure medicine will be started. 3. Attempts should be made to correct all the patient's toxic metabolic imbalances. 4. Observe closely. Juan Cortez M.D., M.S.P.H. JUAN CORTEZ February 07, 2018 22:48
[2018-02-08] VITALS (12 sets, daily range): BP systolic 140–194; BP diastolic 40–98
--- NOTE | 2018-02-08 02:45 | Electroencephalogram ---
DATE OF PROCEDURE: 02/07/2018 EEG REPORT REQUESTING PHYSICIAN: Le Bagley M.D. HISTORY: This EEG was performed on a 68-year-old gentleman who was hospitalized for an alteration in his mental state. There was a suspicion of a possible seizure and thus, this EEG was performed to evaluate the patient for the degree and type of cerebral dysfunction and to exclude ongoing ictal or interictal phenomena. TECHNICAL NOTE: This EEG was performed on [employer] acquisition unit with electrodes placed on the scalp according to the International 10-20 system. [id number] and [id number] montages were used. The EEG was technically satisfactory and was performed while the patient was in poorly responsive state. OBSERVATIONS: In the poorly responsive state, the background activity consisted of 4-5 Hz theta and 1.5-2 Hz delta activity. Triphasic waveforms with an hyefflzv-fk-vqrawduto gradient were also seen throughout the tracing. Photic stimulation was performed at various different frequencies and produced no abnormalities. No definite focal abnormalities or epileptiform discharges were seen. IMPRESSION: This is an abnormal EEG characterized by slowing of the background in the 4-5 Hz theta and 1.5-2 Hz delta range. In addition, triphasic waveforms with an gmrkmdbv-oz-lutmopkun gradient were seen throughout the tracing. COMMENT: This study is consistent with an encephalopathy of moderately severe degree, most probably with a toxic-metabolic component as evidenced by the triphasic waveforms. Miquel Cortez M.D., M.S.P.H. DR: CHAVO JOB#: [id number] [facility]ITALNick
[2018-02-08 05:44] LABS: BASOPHILS % (AUTO) 0.7 % (0.0-2.0); EOSINOPHILS % (AUTO) 3.7 % (0.0-3.0); HEMATOCRIT 25.8 % (42.0-52.0); LYMPHOCYTES % (AUTO) 13.2 % (20.0-45.0); MEAN CORPUSCULAR VOLUME 93 FL (80-99); MONOCYTES % (AUTO) 10.6 % (1.0-10.0); NEUTROPHILS % (AUTO) 71.9 % (45.0-75.0); PLATELET COUNT 120 K/UL (150-450); RED BLOOD COUNT 2.76 M/UL (4.70-6.10); RED CELL DISTRIBUTION WIDTH 15.8 % (11.6-14.8); WHITE BLOOD COUNT 8.9 K/UL (4.8-10.8)
[2018-02-08 06:05] LABS: ALANINE AMINOTRANSFERASE 47 U/L (12-78); ALBUMIN 1.5 G/DL (3.4-5.0); ALBUMIN/GLOBULIN RATIO 0.4 (1.0-2.7); ALKALINE PHOSPHATASE 1330 U/L (46-116); ANION GAP 8 mmol/L (5-15); ASPARTATE AMINO TRANSFERASE 39 U/L (15-37); BLOOD UREA NITROGEN 92 mg/dL (7-18); CARBON DIOXIDE 24 MMOL/L (21-32); CHLORIDE 107 MMOL/L (98-107); CREATINE KINASE 41 U/L (26-308); CREATININE 3.3 MG/DL (0.55-1.30); GAMMA GLUTAMYL TRANSPEPTIDASE 2165 U/L (5-85); PHOSPHORUS 5.3 MG/DL (2.5-4.9); POTASSIUM 4.7 MMOL/L (3.5-5.1); SODIUM 139 MMOL/L (136-145)
[2018-02-08] MEDS: NovoLOG Insulin Flexpen SUBQ SCH ×3 (06:31→17:17)
[2018-02-08] MEDS: Heparin 5000 units/ml inj SUBQ SCH ×2 (08:29→20:35)
[2018-02-08] MEDS: Carvedilol 25mg Tab NG SCH ×2 (08:40→20:34)
[2018-02-08] MEDS: Renvela 800mg Pkt NG SCH ×3 (08:41→17:14)
[2018-02-08] MEDS ORDERED: fentaNYL 100 mcg/2 mL IV ONE ×2 (10:59→12:30)
[2018-02-08] MEDS ORDERED: Midazolam 2mg/2ml Inj ONE ×2 (10:59→12:30)
--- NOTE | 2018-02-08 11:37 | GI Initial Consult Note ---
BeaJaja Myron N.PMatty 02/08/18 1137: History of Present Illness General Date patient seen: February 08, 2018 Time patient seen: 11:34 Reason for Hospitalization: Altered Level of Consciousness Referring physician: SAMUEL HOFFAMN Reason for Consultation: PEG EVALUATION Present Illness HPI Patient presents with reports of altered mental status patient presents from a nursing facility There is no report of last known well Patient was found this morning to be altered There is a report from paramedics that the patient usually is awake and alert Was found this morning with decreased GCS Patient has very minimal grimacing with physical stimuli There was no reports of obvious fever Patient appears to be a dialysis patient however unknown last dialysis Very limited report provided by EMS GI consulted for PEG evaluation. ROS limited, pt seen NAD with no active s/ sx of N/V/D. NGT present with TF's. ST evaluation noted. All notes reviewed. Per RN report, patient family had agreed to PEG after discussion with Dr. Hoffman,. Home Meds Reported Medications Baclofen (BACLOFEN) 5 Gm Powder, 20 GM MC, GM 02/05/18 Fluconazole (FLUCONAZOLE) 100 Mg Tablet, 200 MG ORAL DAILY, #7 TAB 0 Refills 02/05/18 Prednisone (PREDNISONE) 5 Mg Tab.ds.pk, 5 MG PO ONCE, PACK 02/05/18 Insulin Glargine (LANTUS) 100 Unit/1 Ml Insuln.pen, 0 SUBQ BEDTIME, #1 EA 0 Refills 02/05/18 Tacrolimus (PROGRAF) 0.5 Mg Capsule, 0.5 MG PO BID, CAP 02/05/18 Ondansetron (Zofran) 4 Mg Tablet, 4 MG ORAL Q4HR PRN for Nausea & Vomiting, TAB 02/05/18 Clonidine Hcl* (CATAPRES*) 0.2 Mg Tablet, 0.2 MG ORAL Q4HR, TAB 02/05/18 Tramadol Hcl (TRAMADOL HCL) 100 Mg Tab.er.24h, 50 MG ORAL DAILY, TAB 02/05/18 Acetaminophen* (ACETAMINOPHEN 325MG TABLET*) 325 Mg Tablet, 650 MG ORAL Q4H PRN for Mild Pain (Pain Scale 1-3), TAB 02/05/18 Tamsulosin Hcl (TAMSULOSIN HCL*) 0.4 Mg Cap.er.24h, 0.4 MG ORAL BEDTIME, CAP 02/05/18 Docusate Sodium (DOCUSATE SODIUM) 100 Mg Tablet, 100 MG ORAL TWICE A DAY, #60 TAB 0 Refills 02/05/18 Carvedilol (Coreg) 6.25 Mg Tablet, 6.25 MG ORAL TWICE A DAY, TAB 02/05/18 Esomeprazole Magnesium (NEXIUM) 40 Mg Capsule.dr, 40 MG ORAL DAILY, CAP 02/05/18 Vitamin B Cmplx/Vit C/Folic AC (Nephro-Fred Tablet) 0.8 Mg Tablet, 1 TAB ORAL DAILY, #30 TAB 0 Refills 02/05/18 Aspirin* (ASPIRIN*) 81 Mg Tab.chew, 81 MG ORAL DAILY, TAB 02/05/18 Med list reviewed/reconciled: Yes Allergies: Coded Allergies: No Known Allergies (Unverified , 02/05/18) Patient History Limited by: medical condition PMH Narrative Allergies: Coded Allergies: No Known Allergies (Unverified , 02/05/18) Patient History Limited by: medical condition Past Medical History: see triage record Pertinent Family History: unable to obtain Reviewed Nursing Documentation: PMH: Agreed; PSxH: Agreed Social History: Denies: smoking, alcohol use, drug use, other Review of Systems All Other Systems: limited Physical Exam Vital Signs Date Time Temp Pulse Resp B/P (MAP) Pulse Ox O2 Delivery O2 Flow Rate FiO2 02/05/18 08:09 90.1 80 20 178/101 99 Nasal Cannula 2.0 90.1 Sp02 EP Interpretation: reviewed, normal Labs Laboratory Tests Test 02/08/18 05:15 White Blood Count 8.9 K/UL (4.8-10.8) Red Blood Count 2.76 M/UL (4.70-6.10) L Hemoglobin 9.0 G/DL (14.2-18.0) L Hematocrit 25.8 % (42.0-52.0) L Mean Corpuscular Volume 93 FL (80-99) Mean Corpuscular Hemoglobin 32.6 PG (27.0-31.0) H Mean Corpuscular Hemoglobin Concent 35.0 G/DL (32.0-36.0) Red Cell Distribution Width 15.8 % (11.6-14.8) H Platelet Count 120 K/UL (150-450) L Mean Platelet Volume 5.3 FL (6.5-10.1) L Neutrophils (%) (Auto) 71.9 % (45.0-75.0) Lymphocytes (%) (Auto) 13.2 % (20.0-45.0) L Monocytes (%) (Auto) 10.6 % (1.0-10.0) H Eosinophils (%) (Auto) 3.7 % (0.0-3.0) H Basophils (%) (Auto) 0.7 % (0.0-2.0) Prothrombin Time 10.0 SEC (9.30-11.50) Prothromb Time International Ratio 1.0 (0.9-1.1) Activated Partial Thromboplast Time 34 SEC (23-33) H Sodium Level 139 MMOL/L (136-145) Potassium Level 4.7 MMOL/L (3.5-5.1) Chloride Level 107 MMOL/L (98-107) Carbon Dioxide Level 24 MMOL/L (21-32) Anion Gap 8 mmol/L (5-15) Blood Urea Nitrogen 92 mg/dL (7-18) H Creatinine 3.3 MG/DL (0.55-1.30) H Estimat Glomerular Filtration Rate 18.8 mL/min (>60) Glucose Level 141 MG/DL (74-106) H Uric Acid 8.7 MG/DL (2.6-7.2) H Calcium Level 9.0 MG/DL (8.5-10.1) Phosphorus Level 5.3 MG/DL (2.5-4.9) H Magnesium Level 2.7 MG/DL (1.8-2.4) H Total Bilirubin 1.0 MG/DL (0.2-1.0) Gamma Glutamyl Transpeptidase 2165 U/L (5-85) H Aspartate Amino Transf (AST/SGOT) 39 U/L (15-37) H Alanine Aminotransferase (ALT/SGPT) 47 U/L (12-78) Alkaline Phosphatase 1330 U/L (46-116) H Total Creatine Kinase 41 U/L (26-308) Pro-B-Type Natriuretic Peptide 47107 pg/mL (0-125) H Total Protein 5.4 G/DL (6.4-8.2) L Albumin 1.5 G/DL (3.4-5.0) L Globulin 3.9 g/dL Albumin/Globulin Ratio 0.4 (1.0-2.7) L General Appearance: no apparent distress, thin Head: normocephalic EENT: PERRL/EOMI, normal ENT inspection Neck: supple Respiratory: normal breath sounds, no respiratory distress Cardiovascular: normal rate Gastrointestinal: normal inspection, non tender, soft, normal bowel sounds, non -distended Rectal: deferred Genitourinary: deferred Musculoskeletal: normal inspection, back normal Neurologic: alert, responsive Psychiatric: normal inspection, judgement/insight normal, memory normal Skin: normal inspection, normal color, no rash, warm/dry, palpation normal, well hydrated Lymphatic: normal inspection, no adenopathy Current Medications Current Medications Medications (Trade) Dose Ordered Sig/Manuel Route PRN Reason Start Time Stop Time Status Last Admin Dose Admin Acetaminophen (Tylenol) 650 mg Q4H PRN ORAL fever (temp>100.5F) 02/05/18 10:15 03/07/18 10:14 Albuterol/ Ipratropium (Albuterol/ Ipratropium) 3 ml Q6H PRN HHN dyspnea 02/05/18 10:15 02/10/18 10:14 Amlodipine Besylate (Norvasc) 5 mg DAILY NG 02/08/18 09:00 03/10/18 08:59 02/08/18 08:40 Carvedilol (Coreg) 25 mg Q12HR NG 02/07/18 21:00 03/07/18 20:59 02/08/18 08:40 Clonidine HCl (Catapres Tab) 0.1 mg Q4H PRN NG For High BP 160 and above 02/06/18 14:15 03/07/18 10:14 02/08/18 07:41 Dextrose (Dextrose 50%) 25 ml STAT PRN IV Hypoglycemia 02/05/18 10:15 03/07/18 10:14 Dextrose (Dextrose 50%) 50 ml STAT PRN IV Hypoglycemia 02/05/18 10:15 03/07/18 10:14 Famotidine (Pepcid) 20 mg Q12HR GT 02/06/18 13:32 03/08/18 13:31 02/08/18 08:39 Heparin Sodium (Porcine) (Heparin 5000 units/ml) 5,000 units EVERY 12 HOURS SUBQ 02/05/18 21:00 03/07/18 20:59 02/06/18 21:19 Insulin Aspart (NovoLOG) BEFORE MEALS AND HS SUBQ 02/05/18 16:30 03/07/18 16:29 02/08/18 06:31 Morphine Sulfate (Morphine Sulfate) 1 mg Q4H PRN IVP For Pain 02/05/18 10:15 02/12/18 10:14 02/06/18 23:14 Olanzapine (ZyPREXA) 2.5 mg BEDTIME ORAL 02/06/18 22:13 03/08/18 22:12 02/07/18 21:34 Ondansetron HCl (Zofran) 4 mg Q6H PRN IVP Nausea & Vomiting 02/05/18 10:15 03/07/18 10:14 Polyethylene Glycol (Miralax) 17 gm HSPRN PRN ORAL Constipation 02/05/18 10:15 03/07/18 10:14 Prednisone (predniSONE) 5 mg DAILY ORAL 02/07/18 10:00 03/08/18 09:59 02/08/18 08:39 Sevelamer Carbonate (Renvela) 800 mg THREE TIMES A DAY NG 02/07/18 18:00 03/09/18 17:59 02/08/18 08:41 Tacrolimus (Prograf) 0.5 mg EVERY 12 HOURS ORAL 02/05/18 21:00 03/07/18 20:59 02/08/18 08:41 Zolpidem Tartrate (Ambien) 5 mg HSPRN PRN ORAL Insomnia 02/05/18 10:15 02/12/18 10:14 GI: Plan Problems: (1) Dysphagia (2) Encounter for PEG (percutaneous endoscopic gastrostomy) (3) Altered level of consciousness Plan PEG scheduled for today. - maintain NPO + IVFs will follow with addition recs post procedure. Discussed with Dr. Ellis. Thank you for this patient referral, we will follow. JUNG ELLIS 02/09/18 0737: History of Present Illness General Reason for Hospitalization: Altered Level of Consciousness Present Illness Home Meds Reported Medications Baclofen (BACLOFEN) 5 Gm Powder, 20 GM MC, GM 02/05/18 Fluconazole (FLUCONAZOLE) 100 Mg Tablet, 200 MG ORAL DAILY, #7 TAB 0 Refills 02/05/18 Prednisone (PREDNISONE) 5 Mg Tab.ds.pk, 5 MG PO ONCE, PACK 02/05/18 Insulin Glargine (LANTUS) 100 Unit/1 Ml Insuln.pen, 0 SUBQ BEDTIME, #1 EA 0 Refills 02/05/18 Tacrolimus (PROGRAF) 0.5 Mg Capsule, 0.5 MG PO BID, CAP 02/05/18 Ondansetron (Zofran) 4 Mg Tablet, 4 MG ORAL Q4HR PRN for Nausea & Vomiting, TAB 02/05/18 Clonidine Hcl* (CATAPRES*) 0.2 Mg Tablet, 0.2 MG ORAL Q4HR, TAB 02/05/18 Tramadol Hcl (TRAMADOL HCL) 100 Mg Tab.er.24h, 50 MG ORAL DAILY, TAB 02/05/18 Acetaminophen* (ACETAMINOPHEN 325MG TABLET*) 325 Mg Tablet, 650 MG ORAL Q4H PRN for Mild Pain (Pain Scale 1-3), TAB 02/05/18 Tamsulosin Hcl (TAMSULOSIN HCL*) 0.4 Mg Cap.er.24h, 0.4 MG ORAL BEDTIME, CAP 02/05/18 Docusate Sodium (DOCUSATE SODIUM) 100 Mg Tablet, 100 MG ORAL TWICE A DAY, #60 TAB 0 Refills 02/05/18 Carvedilol (Coreg) 6.25 Mg Tablet, 6.25 MG ORAL TWICE A DAY, TAB 02/05/18 Esomeprazole Magnesium (NEXIUM) 40 Mg Capsule.dr, 40 MG ORAL DAILY, CAP 02/05/18 Vitamin B Cmplx/Vit C/Folic AC (Nephro-Fred Tablet) 0.8 Mg Tablet, 1 TAB ORAL DAILY, #30 TAB 0 Refills 02/05/18 Aspirin* (ASPIRIN*) 81 Mg Tab.chew, 81 MG ORAL DAILY, TAB 02/05/18 Allergies: Coded Allergies: No Known Allergies (Unverified , 02/05/18) GI: Plan Plan The patient was seen and examined at bedside and all new and available data was reviewed in the patients chart. I agree with the above findings, impression and plan. (Patient seen earlier today. Signature stamp does not reflect patient encounter time.). - MD Bea Knutson,[facility] Myron N.PMatty February 08, 2018 11:37 JUNG ELLIS February 09, 2018 07:37
--- NOTE | 2018-02-08 11:39 | General Progress Note ---
Assessment/Plan Assessment/Plan encephalopathy -the pt lacks capacity to make decisions -zyprexa 2.5 qh -d/w family Subjective Date patient seen: February 08, 2018 Neurologic/Psychiatric: Reports: anxiety, emotional problems Allergies: Coded Allergies: No Known Allergies (Unverified , 02/05/18) Subjective the pt has waxing and waning of consciousness. The pt is not able to participate Objective Last 24 Hour Vital Signs Date Time Temp Pulse Resp B/P (MAP) Pulse Ox O2 Delivery O2 Flow Rate FiO2 02/08/18 08:40 100 164/98 02/08/18 08:40 100 164/98 02/08/18 08:00 97.5 100 22 164/98 94 Room Air 97.5 02/08/18 07:41 194/85 02/08/18 04:00 98.4 98 18 194/85 96 Room Air 98.4 02/08/18 04:00 96 02/08/18 00:00 85 02/08/18 00:00 98.5 85 18 160/79 98 Room Air 98.5 02/07/18 21:35 98 153/49 02/07/18 20:00 97 02/07/18 20:00 98.1 98 20 153/49 98 Room Air 98.1 02/07/18 17:37 90 150/85 02/07/18 16:00 90 02/07/18 12:00 90 02/07/18 12:00 97.7 98 20 150/85 98 Room Air 97.7 Intake and Output 02/07/18 02/08/18 19:00 07:00 Intake Total 390 ml 170 ml Output Total 750 ml 400 ml Balance -360 ml -230 ml Free Water 60 ml 50 ml Tube Feeding 330 ml 120 ml Output Urine Total 750 ml 400 ml Laboratory Tests 02/08/18 05:15: White Blood Count 8.9, Red Blood Count 2.76L, Hemoglobin 9.0L, Hematocrit 25.8L , Mean Corpuscular Volume 93, Mean Corpuscular Hemoglobin 32.6H, Mean Corpuscular Hemoglobin Concent 35.0, Red Cell Distribution Width 15.8H, Platelet Count 120L, Mean Platelet Volume 5.3L, Neutrophils (%) (Auto) 71.9, Lymphocytes (%) (Auto) 13.2L, Monocytes (%) (Auto) 10.6H, Eosinophils (%) (Auto ) 3.7H, Basophils (%) (Auto) 0.7, Prothrombin Time 10.0, Prothromb Time International Ratio 1.0, Activated Partial Thromboplast Time 34H, Sodium Level 139, Potassium Level 4.7, Chloride Level 107, Carbon Dioxide Level 24, Anion Gap 8, Blood Urea Nitrogen 92H, Creatinine 3.3H, Estimat Glomerular Filtration Rate 18.8, Glucose Level 141H, Uric Acid 8.7H, Calcium Level 9.0, Phosphorus Level 5.3H, Magnesium Level 2.7H, Total Bilirubin 1.0, Gamma Glutamyl Transpeptidase 2165H, Aspartate Amino Transf (AST/SGOT) 39H, Alanine Aminotransferase (ALT/SGPT) 47, Alkaline Phosphatase 1330H, Total Creatine Kinase 41, Pro-B-Type Natriuretic Peptide 11927K, Total Protein 5.4L, Albumin 1.5L, Globulin 3.9, Albumin/Globulin Ratio 0.4L Height (Feet): 5 Height (Inches): 5.00 Weight (Pounds): 145 General Appearance: WD/WN, no apparent distress, alert, confused Tonny Tang M.D. February 08, 2018 11:39
--- NOTE | 2018-02-08 11:54 | Anethesia Preoperative Eval ---
Anesthesia Pre-op PMH/ROS General Date of Evaluation: February 08, 2018 Time of Evaluation: 11:48 Anesthesiologist: Destinee ASA Score: ASA 4 Mallampati Score Class I : Soft palate, uvula, fauces, pillars visible Class II: Soft palate, uvula, fauces visible Class III: Soft palate, base of uvula visible Class IV: Only hard plate visible Mallampati Classification: Class III Surgeon: Walter Diagnosis: Dysphagia Surgical Procedure: EGD PEG tube placement Anesthesia History: none Family History: no anesthesia problems Allergies: Coded Allergies: No Known Allergies (Unverified , 02/05/18) Medications: see eMAR Past Medical History Cardiovascular: Reports: HTN, other - CHF; Denies: CAD, ND, valve dz, arrhythmia Pulmonary: Denies: asthma, COPD, LOCO, other Gastrointestinal/Genitourinary: Reports: ESRD - on HD; Denies: GERD, CRI, other Neurologic/Psychiatric: Reports: dementia, other - encephalopathy; Denies: CVA, depression/anxiety, TIA Endocrine: Reports: DM; Denies: hypothyroidism, steroids, other HEENT: Denies: cataract (L), cataract (R), glaucoma, INAJA (L), INAJA (R), other Hematology/Immune: Reports: anemia - of chronic d-s; Denies: DVT, bleeding disorder, other Musculoskeletal/Integumentary: Denies: OA, RA, DJD, DDD, edema, other PMH Narrative: as above PSxH Narrative: See H&P Anesthesia Pre-op Phys. Exam Physician Exam Last Vital Signs Date Time Temp Pulse Resp B/P (MAP) Pulse Ox O2 Delivery O2 Flow Rate FiO2 02/08/18 08:40 100 164/98 02/08/18 08:00 97.5 22 94 Room Air 97.5 02/05/18 08:09 2.0 Constitutional: NAD Neurologic: other - un able to obtaine Cardiovascular: RRR Respiratory: CTA Gastrointestinal: S/NT/ND Airway Exam Mallampati Score: Class III MO: limited Neck: stiff ROM: limited Teeth: missing Dentures: no upper, no lower Anesthesia Pre-op A/P Labs Hematology Test 02/08/18 05:15 White Blood Count 8.9 K/UL (4.8-10.8) Red Blood Count 2.76 M/UL (4.70-6.10) L Hemoglobin 9.0 G/DL (14.2-18.0) L Hematocrit 25.8 % (42.0-52.0) L Mean Corpuscular Volume 93 FL (80-99) Mean Corpuscular Hemoglobin 32.6 PG (27.0-31.0) H Mean Corpuscular Hemoglobin Concent 35.0 G/DL (32.0-36.0) Red Cell Distribution Width 15.8 % (11.6-14.8) H Platelet Count 120 K/UL (150-450) L Mean Platelet Volume 5.3 FL (6.5-10.1) L Neutrophils (%) (Auto) 71.9 % (45.0-75.0) Lymphocytes (%) (Auto) 13.2 % (20.0-45.0) L Monocytes (%) (Auto) 10.6 % (1.0-10.0) H Eosinophils (%) (Auto) 3.7 % (0.0-3.0) H Basophils (%) (Auto) 0.7 % (0.0-2.0) Coagulation Test 02/08/18 05:15 Prothrombin Time 10.0 SEC (9.30-11.50) Prothromb Time International Ratio 1.0 (0.9-1.1) Activated Partial Thromboplast Time 34 SEC (23-33) H Chemistry Test 02/08/18 05:15 Sodium Level 139 MMOL/L (136-145) Potassium Level 4.7 MMOL/L (3.5-5.1) Chloride Level 107 MMOL/L (98-107) Carbon Dioxide Level 24 MMOL/L (21-32) Anion Gap 8 mmol/L (5-15) Blood Urea Nitrogen 92 mg/dL (7-18) H Creatinine 3.3 MG/DL (0.55-1.30) H Estimat Glomerular Filtration Rate 18.8 mL/min (>60) Glucose Level 141 MG/DL (74-106) H Uric Acid 8.7 MG/DL (2.6-7.2) H Calcium Level 9.0 MG/DL (8.5-10.1) Phosphorus Level 5.3 MG/DL (2.5-4.9) H Magnesium Level 2.7 MG/DL (1.8-2.4) H Total Bilirubin 1.0 MG/DL (0.2-1.0) Gamma Glutamyl Transpeptidase 2165 U/L (5-85) H Aspartate Amino Transf (AST/SGOT) 39 U/L (15-37) H Alanine Aminotransferase (ALT/SGPT) 47 U/L (12-78) Alkaline Phosphatase 1330 U/L (46-116) H Total Creatine Kinase 41 U/L (26-308) Pro-B-Type Natriuretic Peptide 58456 pg/mL (0-125) H Total Protein 5.4 G/DL (6.4-8.2) L Albumin 1.5 G/DL (3.4-5.0) L Globulin 3.9 g/dL Albumin/Globulin Ratio 0.4 (1.0-2.7) L Risk Assessment & Plan Assessment: ASA 4 Plan: MAC Pre-Antibiotics Drug: Ancef 1 gr. Given Within 1 Hr of Incision: Yes Time Given: 12:12 OPAL EDGAR M.D. February 08, 2018 11:54
[2018-02-08] MEDS ORDERED: DiphenhydrAMINE 50mg/ml Inj IVP PRN ×2 (12:00→18:30)
[2018-02-08] MEDS ORDERED: fentaNYL 100 mcg/2 mL IV PRN ×2 (12:00→18:30)
--- NOTE | 2018-02-08 12:06 | Pulmonology Progress Note ---
Assessment/Plan Problems: (1) Acute encephalopathy (2) Chronic kidney insufficiency (3) History of hypertension (4) Hx of kidney transplant (5) Diabetes mellitus Assessment/Plan Gtube scheduled Pt hs NG tube now neuro evaluation appreciated family would agree with Feeding Tube if pt can't swallow siding scale monitor BP med/surg Subjective ROS Limited/Unobtainable: Yes Constitutional: Reports: no symptoms HEENT: Repors: no symptoms Respiratory: Reports: no symptoms Allergies: Coded Allergies: No Known Allergies (Unverified , 02/05/18) Objective Last 24 Hour Vital Signs Date Time Temp Pulse Resp B/P (MAP) Pulse Ox O2 Delivery O2 Flow Rate FiO2 02/08/18 08:40 100 164/98 02/08/18 08:40 100 164/98 02/08/18 08:00 97.5 100 22 164/98 94 Room Air 97.5 02/08/18 07:41 194/85 02/08/18 04:00 98.4 98 18 194/85 96 Room Air 98.4 02/08/18 04:00 96 02/08/18 00:00 85 02/08/18 00:00 98.5 85 18 160/79 98 Room Air 98.5 02/07/18 21:35 98 153/49 02/07/18 20:00 97 02/07/18 20:00 98.1 98 20 153/49 98 Room Air 98.1 02/07/18 17:37 90 150/85 02/07/18 16:00 90 Intake and Output 02/07/18 02/08/18 19:00 07:00 Intake Total 390 ml 170 ml Output Total 750 ml 400 ml Balance -360 ml -230 ml Free Water 60 ml 50 ml Tube Feeding 330 ml 120 ml Output Urine Total 750 ml 400 ml General Appearance: WD/WN HEENT: normocephalic, atraumatic Respiratory/Chest: chest wall non-tender, lungs clear Cardiovascular: normal peripheral pulses, normal rate Abdomen: normal bowel sounds, soft, non tender Genitourinary: normal external genitalia 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 Laboratory Tests 02/08/18 05:15: White Blood Count 8.9, Red Blood Count 2.76L, Hemoglobin 9.0L, Hematocrit 25.8L , Mean Corpuscular Volume 93, Mean Corpuscular Hemoglobin 32.6H, Mean Corpuscular Hemoglobin Concent 35.0, Red Cell Distribution Width 15.8H, Platelet Count 120L, Mean Platelet Volume 5.3L, Neutrophils (%) (Auto) 71.9, Lymphocytes (%) (Auto) 13.2L, Monocytes (%) (Auto) 10.6H, Eosinophils (%) (Auto ) 3.7H, Basophils (%) (Auto) 0.7, Prothrombin Time 10.0, Prothromb Time International Ratio 1.0, Activated Partial Thromboplast Time 34H, Sodium Level 139, Potassium Level 4.7, Chloride Level 107, Carbon Dioxide Level 24, Anion Gap 8, Blood Urea Nitrogen 92H, Creatinine 3.3H, Estimat Glomerular Filtration Rate 18.8, Glucose Level 141H, Uric Acid 8.7H, Calcium Level 9.0, Phosphorus Level 5.3H, Magnesium Level 2.7H, Total Bilirubin 1.0, Gamma Glutamyl Transpeptidase 2165H, Aspartate Amino Transf (AST/SGOT) 39H, Alanine Aminotransferase (ALT/SGPT) 47, Alkaline Phosphatase 1330H, Total Creatine Kinase 41, Pro-B-Type Natriuretic Peptide 71066F, Total Protein 5.4L, Albumin 1.5L, Globulin 3.9, Albumin/Globulin Ratio 0.4L Current Medications Medications (Trade) Dose Ordered Sig/Manuel Route PRN Reason Start Time Stop Time Status Last Admin Dose Admin Acetaminophen (Tylenol) 650 mg Q4H PRN ORAL fever (temp>100.5F) 02/05/18 10:15 03/07/18 10:14 Albuterol/ Ipratropium (Albuterol/ Ipratropium) 3 ml Q6H PRN HHN dyspnea 02/05/18 10:15 02/10/18 10:14 Amlodipine Besylate (Norvasc) 5 mg DAILY NG 02/08/18 09:00 03/10/18 08:59 02/08/18 08:40 Carvedilol (Coreg) 25 mg Q12HR NG 02/07/18 21:00 03/07/18 20:59 02/08/18 08:40 Clonidine HCl (Catapres Tab) 0.1 mg Q4H PRN NG For High BP 160 and above 02/06/18 14:15 03/07/18 10:14 02/08/18 07:41 Dextrose (Dextrose 50%) 25 ml STAT PRN IV Hypoglycemia 02/05/18 10:15 03/07/18 10:14 Dextrose (Dextrose 50%) 50 ml STAT PRN IV Hypoglycemia 02/05/18 10:15 03/07/18 10:14 Diphenhydramine HCl (Benadryl) 25 mg Q15M PRN IVP Itching 02/08/18 12:00 02/08/18 20:00 Famotidine (Pepcid) 20 mg Q12HR GT 02/06/18 13:32 03/08/18 13:31 02/08/18 08:39 Fentanyl Citrate (Sublimaze 100 mcg/2 mL) 25 mcg Q10M PRN IV Moderate Pain (Pain Scale 4-6) 02/08/18 12:00 02/08/18 20:00 Heparin Sodium (Porcine) (Heparin 5000 units/ml) 5,000 units EVERY 12 HOURS SUBQ 02/05/18 21:00 03/07/18 20:59 02/06/18 21:19 Insulin Aspart (NovoLOG) BEFORE MEALS AND HS SUBQ 02/05/18 16:30 03/07/18 16:29 02/08/18 06:31 Morphine Sulfate (Morphine Sulfate) 1 mg Q4H PRN IVP For Pain 02/05/18 10:15 02/12/18 10:14 02/06/18 23:14 Olanzapine (ZyPREXA) 2.5 mg BEDTIME ORAL 02/06/18 22:13 03/08/18 22:12 02/07/18 21:34 Ondansetron HCl (Zofran) 4 mg Q1H PRN IVP Nausea & Vomiting 02/08/18 12:00 02/08/18 20:00 Ondansetron HCl (Zofran) 4 mg Q6H PRN IVP Nausea & Vomiting 02/05/18 10:15 03/07/18 10:14 Polyethylene Glycol (Miralax) 17 gm HSPRN PRN ORAL Constipation 02/05/18 10:15 03/07/18 10:14 Prednisone (predniSONE) 5 mg DAILY ORAL 02/07/18 10:00 03/08/18 09:59 02/08/18 08:39 Sevelamer Carbonate (Renvela) 800 mg THREE TIMES A DAY NG 02/07/18 18:00 03/09/18 17:59 02/08/18 08:41 Sodium Chloride 1,000 ml @ 10 mls/hr Q24H IVLG 02/08/18 11:54 02/08/18 13:53 Tacrolimus (Prograf) 0.5 mg EVERY 12 HOURS ORAL 02/05/18 21:00 03/07/18 20:59 02/08/18 08:41 Zolpidem Tartrate (Ambien) 5 mg HSPRN PRN ORAL Insomnia 02/05/18 10:15 02/12/18 10:14 Le Bagley MD February 08, 2018 12:06
[2018-02-08] MEDS ORDERED: NS 500ML IVPB ONE (12:10)
--- NOTE | 2018-02-08 12:12 | Pre-Procedure Note/Attestation ---
Pre-Procedure Note/Attestation Complete Prior to Procedure Planned Procedure: not applicable Procedure Narrative: egd/peg Indications for Procedure Pre-Operative Diagnosis: FTT Attestation I attest that I discussed the nature of the procedure; its benefits; risks and complications; and alternatives (and the risks and benefits of such alternatives ), prior to the procedure, with the patient (or the patient's legal enrollment representative). I attest that, if there was a reasonable possibility of needing a blood transfusion, the patient (or the patient's legal enrollment representative) was given the [facility] standardized written summary, pursuant to the [place] Blood Safety Act ([place] Health and Safety Code # 1645, as amended). I attest that I re-evaluated the patient just prior to the surgery and that there has been no change in the patient's H&P, except as documented below: JUNG ELLIS February 08, 2018 12:12
--- NOTE | 2018-02-08 12:23 | Endoscopy Procedure Note ---
Endoscopy Procedure Note General Indication for Procedure: dysphagia, FTT Procedures Performed: EGD, PEG Operative Findings/Diagnosis: same Specimen: none Pt Tolerated Procedure Well: Yes Estimated Blood Loss: none Anesthesia Anesthesiologist: jayden Anesthesia: MAC Inserted Devices Implant(s) used?: No GI Core Measures 50 yrs or older w/o bx or poly: Not Applicable 10yrs. F/U not recommended: Not Applicable JUNG ELLIS February 08, 2018 12:23
[2018-02-08] MEDS ORDERED: Propofol 200mg/20ml IV ONE (12:30)
--- NOTE | 2018-02-08 12:37 | Immediate Post-Op Evaluation ---
Immediate Post-Op Evalulation Immediate Post-Op Evalulation Procedure: EGD PEG tube placement Date of Evaluation: February 08, 2018 Time of Evaluation: 12:36 IV Fluids: 200 Blood Products: none Estimated Blood Loss: min Urinary Output: none Blood Pressure Systolic: 172 Blood Pressure Diastolic: 76 Pulse Rate: 74 Respiratory Rate: 20 O2 Sat by Pulse Oximetry: 99 Temperature (Fahrenheit): 97.6 Pain Score (1-10): 1 Nausea: No Vomiting: No Complications none Patient Status: reacts, patent, none Hydration Status: adequate OPAL EDGAR M.D. February 08, 2018 12:37
--- NOTE | 2018-02-08 12:38 | 48 Hour Post Anesthesia Eval ---
Post Anesthesia Evaluation Procedure: EGD PEG tube placement Date of Evaluation: February 08, 2018 Time of Evaluation: 13:25 Blood Pressure Systolic: 156 0: 72 Pulse Rate: 68 Respiratory Rate: 20 Temperature (Fahrenheit): 97.6 O2 Sat by Pulse Oximetry: 98 Airway: patent Nausea: No Vomiting: No Pain Intensity: 2 Hydration Status: adequate Cardiopulmonary Status: stable Mental Status/LOC: patient returned to baseline Follow-up Care/Observations: n/a Post-Anesthesia Complications: none Follow-up care needed: N/A OPAL EDGAR M.D. February 08, 2018 12:38
--- NOTE | 2018-02-08 13:22 | Infectious Diseases Prog Note ---
Assessment/Plan Assessment/Plan Assessment: Acute encephalopathy- ?related to pain meds in the setting of renal dysfunction - r/o intracranial pathology- no signs or symptoms of infectious process -Brain MRI: No acute intracranial findings. Mild atrophy and evidence of chronic small vessel disease involving white matter tracts. -CT head: No evidence of acute intracranial hemorrhage, mass effect, midline shift or cortical edema. MRI may be obtained for more sensitive evaluation as clinically indicated. Atrophy and nonspecific periventricular hypoattenuation suggestive of chronic ischemic microvascular changes. Intracranial atherosclerosis. Hypothermia, resolved -no leukocytosis -u/a no pyuria -CXR: Cardiomegaly with interstitial opacification/edema, small left/trace right pleural effusions and left basilar atelectasis/consolidation. Findings may be related to CHF/fluid overload. Superimposed pneumonia should be excluded clinically. -Bcx NTD ?Seizure episode AI, worsening ESRD s/p kidney transplant about 3 years ago DM2 HTN Plan: -Continue to monitor off abx -02/05 Vanco and Ceftriaxone x1 -f/u cx -Monitor CBC/BMP, temperatures -aspiration precautions -Neuro f/u Thank you for this consultation. Will continue to follow along with you. Discussed with RN. Subjective Allergies: Coded Allergies: No Known Allergies (Unverified , 02/05/18) Subjective afebrile no leukocytosis off abx Bcx NTD Objective Vital Signs Last 24 Hour Vital Signs Date Time Temp Pulse Resp B/P (MAP) Pulse Ox O2 Delivery O2 Flow Rate FiO2 02/08/18 12:54 74 19 147/46 100 Nasal Cannula 3.0 02/08/18 12:40 73 19 140/40 100 Nasal Cannula 3.0 02/08/18 12:38 207.7 68 20 98 02/08/18 12:37 207.7 74 20 99 02/08/18 12:35 75 19 141/42 100 Nasal Cannula 3.0 02/08/18 12:30 97.6 77 19 144/50 100 Nasal Cannula 3.0 97.6 02/08/18 12:00 97.0 100 21 161/78 98 Room Air 97.0 02/08/18 08:40 100 164/98 02/08/18 08:40 100 164/98 02/08/18 08:00 97.5 100 22 164/98 94 Room Air 97.5 02/08/18 07:41 194/85 02/08/18 04:00 98.4 98 18 194/85 96 Room Air 98.4 02/08/18 04:00 96 02/08/18 00:00 85 02/08/18 00:00 98.5 85 18 160/79 98 Room Air 98.5 02/07/18 21:35 98 153/49 02/07/18 20:00 97 02/07/18 20:00 98.1 98 20 153/49 98 Room Air 98.1 02/07/18 17:37 90 150/85 02/07/18 16:00 90 Height (Feet): 5 Height (Inches): 5.00 Weight (Pounds): 145 Objective General Appearance: WD/WN, no apparent distress Lines, tubes and drains: peripheral HEENT: normocephalic, atraumatic Neck: non-tender, normal alignment Respiratory/Chest: chest wall non-tender, lungs clear, normal breath sounds Cardiovascular/Chest: normal rate Abdomen: normal bowel sounds, non tender Extremities: trace edema, bruises, ecchymosis Laboratory Tests Test 02/08/18 05:15 White Blood Count 8.9 K/UL (4.8-10.8) Red Blood Count 2.76 M/UL (4.70-6.10) L Hemoglobin 9.0 G/DL (14.2-18.0) L Hematocrit 25.8 % (42.0-52.0) L Mean Corpuscular Volume 93 FL (80-99) Mean Corpuscular Hemoglobin 32.6 PG (27.0-31.0) H Mean Corpuscular Hemoglobin Concent 35.0 G/DL (32.0-36.0) Red Cell Distribution Width 15.8 % (11.6-14.8) H Platelet Count 120 K/UL (150-450) L Mean Platelet Volume 5.3 FL (6.5-10.1) L Neutrophils (%) (Auto) 71.9 % (45.0-75.0) Lymphocytes (%) (Auto) 13.2 % (20.0-45.0) L Monocytes (%) (Auto) 10.6 % (1.0-10.0) H Eosinophils (%) (Auto) 3.7 % (0.0-3.0) H Basophils (%) (Auto) 0.7 % (0.0-2.0) Prothrombin Time 10.0 SEC (9.30-11.50) Prothromb Time International Ratio 1.0 (0.9-1.1) Activated Partial Thromboplast Time 34 SEC (23-33) H Sodium Level 139 MMOL/L (136-145) Potassium Level 4.7 MMOL/L (3.5-5.1) Chloride Level 107 MMOL/L (98-107) Carbon Dioxide Level 24 MMOL/L (21-32) Anion Gap 8 mmol/L (5-15) Blood Urea Nitrogen 92 mg/dL (7-18) H Creatinine 3.3 MG/DL (0.55-1.30) H Estimat Glomerular Filtration Rate 18.8 mL/min (>60) Glucose Level 141 MG/DL (74-106) H Uric Acid 8.7 MG/DL (2.6-7.2) H Calcium Level 9.0 MG/DL (8.5-10.1) Phosphorus Level 5.3 MG/DL (2.5-4.9) H Magnesium Level 2.7 MG/DL (1.8-2.4) H Total Bilirubin 1.0 MG/DL (0.2-1.0) Gamma Glutamyl Transpeptidase 2165 U/L (5-85) H Aspartate Amino Transf (AST/SGOT) 39 U/L (15-37) H Alanine Aminotransferase (ALT/SGPT) 47 U/L (12-78) Alkaline Phosphatase 1330 U/L (46-116) H Total Creatine Kinase 41 U/L (26-308) Pro-B-Type Natriuretic Peptide 33063 pg/mL (0-125) H Total Protein 5.4 G/DL (6.4-8.2) L Albumin 1.5 G/DL (3.4-5.0) L Globulin 3.9 g/dL Albumin/Globulin Ratio 0.4 (1.0-2.7) L Current Medications Medications (Trade) Dose Ordered Sig/Manuel Route PRN Reason Start Time Stop Time Status Last Admin Dose Admin Acetaminophen (Tylenol) 650 mg Q4H PRN ORAL fever (temp>100.5F) 02/05/18 10:15 03/07/18 10:14 Albuterol/ Ipratropium (Albuterol/ Ipratropium) 3 ml Q6H PRN HHN dyspnea 02/05/18 10:15 02/10/18 10:14 Amlodipine Besylate (Norvasc) 5 mg DAILY NG 02/08/18 09:00 03/10/18 08:59 02/08/18 08:40 Carvedilol (Coreg) 25 mg Q12HR NG 02/07/18 21:00 03/07/18 20:59 02/08/18 08:40 Clonidine HCl (Catapres Tab) 0.1 mg Q4H PRN NG For High BP 160 and above 02/06/18 14:15 03/07/18 10:14 02/08/18 07:41 Dextrose (Dextrose 50%) 25 ml STAT PRN IV Hypoglycemia 02/05/18 10:15 03/07/18 10:14 Dextrose (Dextrose 50%) 50 ml STAT PRN IV Hypoglycemia 02/05/18 10:15 03/07/18 10:14 Diphenhydramine HCl (Benadryl) 25 mg Q15M PRN IVP Itching 02/08/18 12:00 02/08/18 20:00 Famotidine (Pepcid) 20 mg Q12HR GT 02/06/18 13:32 03/08/18 13:31 02/08/18 08:39 Fentanyl Citrate (Sublimaze 100 mcg/2 mL) 25 mcg Q10M PRN IV Moderate Pain (Pain Scale 4-6) 02/08/18 12:00 02/08/18 20:00 Heparin Sodium (Porcine) (Heparin 5000 units/ml) 5,000 units EVERY 12 HOURS SUBQ 02/05/18 21:00 03/07/18 20:59 02/06/18 21:19 Insulin Aspart (NovoLOG) BEFORE MEALS AND HS SUBQ 02/05/18 16:30 03/07/18 16:29 02/08/18 06:31 Morphine Sulfate (Morphine Sulfate) 1 mg Q4H PRN IVP For Pain 02/05/18 10:15 02/12/18 10:14 02/06/18 23:14 Olanzapine (ZyPREXA) 2.5 mg BEDTIME ORAL 02/06/18 22:13 03/08/18 22:12 02/07/18 21:34 Ondansetron HCl (Zofran) 4 mg Q1H PRN IVP Nausea & Vomiting 02/08/18 12:00 02/08/18 20:00 Ondansetron HCl (Zofran) 4 mg Q6H PRN IVP Nausea & Vomiting 02/05/18 10:15 03/07/18 10:14 Polyethylene Glycol (Miralax) 17 gm HSPRN PRN ORAL Constipation 02/05/18 10:15 03/07/18 10:14 Prednisone (predniSONE) 5 mg DAILY ORAL 02/07/18 10:00 03/08/18 09:59 02/08/18 08:39 Sevelamer Carbonate (Renvela) 800 mg THREE TIMES A DAY NG 02/07/18 18:00 03/09/18 17:59 02/08/18 08:41 Sodium Chloride 1,000 ml @ 10 mls/hr Q24H IVLG 02/08/18 11:54 02/08/18 13:53 Tacrolimus (Prograf) 0.5 mg EVERY 12 HOURS ORAL 02/05/18 21:00 03/07/18 20:59 02/08/18 08:41 Zolpidem Tartrate (Ambien) 5 mg HSPRN PRN ORAL Insomnia 02/05/18 10:15 02/12/18 10:14 Tia Ortega M.D. February 08, 2018 13:22
--- NOTE | 2018-02-08 15:55 | Nephrology Progress Note ---
Assessment/Plan Problem List: (1) Acute encephalopathy (2) Chronic kidney insufficiency (3) History of hypertension (4) Nephrotic syndrome (5) Severe malnutrition Assessment Renal failure- Appears mainly prerenal, likely with underlying renal worsened previous kidney transplant acute encephalopathy previous multiple transfusions hypoalbuminemia 4+ proteinuria left arm swelling adjust bp meds Plan Plan: abdominal JAYE in am change feeding to Nepro PEG ID eval? 2D Echo Noted Avoid nephrotoxics monitor renal parameters venous duplex left arm Neg 24 h urine for total Protein over 5 grams Subjective ROS Limited/Unobtainable: No Constitutional: Reports: malaise Objective Objective Last 24 Hour Vital Signs Date Time Temp Pulse Resp B/P (MAP) Pulse Ox O2 Delivery O2 Flow Rate FiO2 02/08/18 12:54 74 19 147/46 100 Nasal Cannula 3.0 02/08/18 12:40 73 19 140/40 100 Nasal Cannula 3.0 02/08/18 12:38 207.7 68 20 98 02/08/18 12:37 207.7 74 20 99 02/08/18 12:35 75 19 141/42 100 Nasal Cannula 3.0 02/08/18 12:30 97.6 77 19 144/50 100 Nasal Cannula 3.0 97.6 02/08/18 12:00 97.0 100 21 161/78 98 Room Air 97.0 02/08/18 08:40 100 164/98 02/08/18 08:40 100 164/98 02/08/18 08:00 97 02/08/18 08:00 97.5 100 22 164/98 94 Room Air 97.5 02/08/18 07:41 194/85 02/08/18 04:00 98.4 98 18 194/85 96 Room Air 98.4 02/08/18 04:00 96 02/08/18 00:00 85 02/08/18 00:00 98.5 85 18 160/79 98 Room Air 98.5 02/07/18 21:35 98 153/49 02/07/18 20:00 97 02/07/18 20:00 98.1 98 20 153/49 98 Room Air 98.1 02/07/18 17:37 90 150/85 02/07/18 16:00 90 Intake and Output 02/07/18 02/08/18 19:00 07:00 Intake Total 390 ml 170 ml Output Total 750 ml 400 ml Balance -360 ml -230 ml Free Water 60 ml 50 ml Tube Feeding 330 ml 120 ml Output Urine Total 750 ml 400 ml Laboratory Tests 02/08/18 05:15: White Blood Count 8.9, Red Blood Count 2.76L, Hemoglobin 9.0L, Hematocrit 25.8L , Mean Corpuscular Volume 93, Mean Corpuscular Hemoglobin 32.6H, Mean Corpuscular Hemoglobin Concent 35.0, Red Cell Distribution Width 15.8H, Platelet Count 120L, Mean Platelet Volume 5.3L, Neutrophils (%) (Auto) 71.9, Lymphocytes (%) (Auto) 13.2L, Monocytes (%) (Auto) 10.6H, Eosinophils (%) (Auto ) 3.7H, Basophils (%) (Auto) 0.7, Prothrombin Time 10.0, Prothromb Time International Ratio 1.0, Activated Partial Thromboplast Time 34H, Sodium Level 139, Potassium Level 4.7, Chloride Level 107, Carbon Dioxide Level 24, Anion Gap 8, Blood Urea Nitrogen 92H, Creatinine 3.3H, Estimat Glomerular Filtration Rate 18.8, Glucose Level 141H, Uric Acid 8.7H, Calcium Level 9.0, Phosphorus Level 5.3H, Magnesium Level 2.7H, Total Bilirubin 1.0, Gamma Glutamyl Transpeptidase 2165H, Aspartate Amino Transf (AST/SGOT) 39H, Alanine Aminotransferase (ALT/SGPT) 47, Alkaline Phosphatase 1330H, Total Creatine Kinase 41, Pro-B-Type Natriuretic Peptide 47548H, Total Protein 5.4L, Albumin 1.5L, Globulin 3.9, Albumin/Globulin Ratio 0.4L Height (Feet): 5 Height (Inches): 5.00 Weight (Pounds): 145 General Appearance: no apparent distress, lethargic Abdomen: soft MELISA HOYT February 08, 2018 15:55
--- NOTE | 2018-02-08 16:30 | Procedure Note ---
DATE OF PROCEDURE: 02/08/2018 SURGEON: Armand Watson M.D. ANESTHESIOLOGIST: Jimbo Felipe M.D. REFERRING PHYSICIAN: Le Bagley M.D. PROCEDURE: Upper endoscopy with PEG placement. ANESTHESIA: Per Dr. Felipe. INSTRUMENT: Olympus adult flexible upper endoscope. INDICATION: Failure to thrive, dysphagia. The procedure, risks, benefits, and possible consequences, including hemorrhage, aspiration, perforation and infection, and alternative treatments, were explained to the patient/legal guardian by Dr. Armand Watson and the patient/legal guardian understood and accepted these risks. DESCRIPTION OF PROCEDURE: After informed consent was obtained and the patient was adequately sedated, Olympus upper endoscope was advanced from the mouth to the second portion of duodenum and retroflexion was performed in the stomach. The patient had evidence of diffuse gastritis. No biopsy was performed given low platelets. Then under endoscopic guidance, under sterile condition, a 20-Albanian pull type of G-tube was successfully placed in epigastric area. The distance from tip of the tube to skin was about 2 cm in size. The patient tolerated the procedure well without any complication. SUMMARY OF FINDINGS: Status post successful PEG placement. RECOMMENDATIONS: 1. Abdominal binder. 2. Elevate the head of the bed at all times. 3. G-tube flush. 4. G-tube care. 5. Start tube feeding later today. I want to thank, Dr. Bagley, for this kind referral. Armand Watson M.D. DR: Guy JOB#: [id number] CC: Le Bagley M.D.; Fax#: [phone]
--- NOTE | 2018-02-08 16:58 | Neurology Progress Note ---
Interim History Interim History Interim History Mr. Bullard is drowsy. He can be aroused. He is non verbal. He is unable to follow simple commands. He is unable to communicate in any manner. He continues to be generally weak. He just got back from a PEG placement. Review of Systems Neuro Review of Systems Unable to obtain. Objective Physical Exam Last Vital Signs Date Time Temp Pulse Resp B/P (MAP) Pulse Ox O2 Delivery O2 Flow Rate FiO2 02/08/18 12:54 74 19 147/46 100 Nasal Cannula 3.0 02/08/18 12:38 207.7 Laboratory Tests Test 02/08/18 05:15 White Blood Count 8.9 K/UL (4.8-10.8) Red Blood Count 2.76 M/UL (4.70-6.10) L Hemoglobin 9.0 G/DL (14.2-18.0) L Hematocrit 25.8 % (42.0-52.0) L Mean Corpuscular Volume 93 FL (80-99) Mean Corpuscular Hemoglobin 32.6 PG (27.0-31.0) H Mean Corpuscular Hemoglobin Concent 35.0 G/DL (32.0-36.0) Red Cell Distribution Width 15.8 % (11.6-14.8) H Platelet Count 120 K/UL (150-450) L Mean Platelet Volume 5.3 FL (6.5-10.1) L Neutrophils (%) (Auto) 71.9 % (45.0-75.0) Lymphocytes (%) (Auto) 13.2 % (20.0-45.0) L Monocytes (%) (Auto) 10.6 % (1.0-10.0) H Eosinophils (%) (Auto) 3.7 % (0.0-3.0) H Basophils (%) (Auto) 0.7 % (0.0-2.0) Prothrombin Time 10.0 SEC (9.30-11.50) Prothromb Time International Ratio 1.0 (0.9-1.1) Activated Partial Thromboplast Time 34 SEC (23-33) H Sodium Level 139 MMOL/L (136-145) Potassium Level 4.7 MMOL/L (3.5-5.1) Chloride Level 107 MMOL/L (98-107) Carbon Dioxide Level 24 MMOL/L (21-32) Anion Gap 8 mmol/L (5-15) Blood Urea Nitrogen 92 mg/dL (7-18) H Creatinine 3.3 MG/DL (0.55-1.30) H Estimat Glomerular Filtration Rate 18.8 mL/min (>60) Glucose Level 141 MG/DL (74-106) H Uric Acid 8.7 MG/DL (2.6-7.2) H Calcium Level 9.0 MG/DL (8.5-10.1) Phosphorus Level 5.3 MG/DL (2.5-4.9) H Magnesium Level 2.7 MG/DL (1.8-2.4) H Total Bilirubin 1.0 MG/DL (0.2-1.0) Gamma Glutamyl Transpeptidase 2165 U/L (5-85) H Aspartate Amino Transf (AST/SGOT) 39 U/L (15-37) H Alanine Aminotransferase (ALT/SGPT) 47 U/L (12-78) Alkaline Phosphatase 1330 U/L (46-116) H Total Creatine Kinase 41 U/L (26-308) Pro-B-Type Natriuretic Peptide 58859 pg/mL (0-125) H Total Protein 5.4 G/DL (6.4-8.2) L Albumin 1.5 G/DL (3.4-5.0) L Globulin 3.9 g/dL Albumin/Globulin Ratio 0.4 (1.0-2.7) L Neurologic Exam Objective PHYSICAL EXAMINATION: GENERAL: He is a well-developed and well-nourished gentleman, lying in bed, in no acute distress. HEAD: Normocephalic and atraumatic. EENT: Examination benign. NECK: No neck rigidity was observed. NEUROLOGIC EXAMINATION: MENTAL STATUS EXAMINATION: He was drowsy but could be aroused. He was non verbal. He was unable to follow simple commands. Further mental status testing was impossible. SPEECH: He was mute. LANGUAGE : Could not be tested.. CRANIAL NERVE EXAMINATION: II: He did not blink to threat on the right side, but did blink to threat on the left side indicating possible visual loss in the right eye. III, IV & : The external ocular movements were present on oculocephalic maneuvers. The pupils were 3 mm in diameter and nonreactive to light. V: He had normal facial sensations, and the temporales, masseters, and pterygoids functioned normally. VII: He had normal facial expressions and no facial asymmetry. VIII: He seemed to be able to hear well and had no nystagmus. IX: The palate moved symmetrically on phonation . X: He had no hoarseness of voice. XI: The sternocleidomastoids and trapezii functioned normally. XII: The tongue was in the midline without any fasciculations or atrophy. MOTOR SYSTEM: The tone was increased in all four extremities with gegenhalten. Examination of muscle mass revealed no focal wasting. He did however have generalized muscle wasting. Examination of power was impossible to perform on individual muscle groups. He did move all four extremities minimally on deep pain. He could not cooperate for further motor testing. SENSORY EXAMINATION: He responded to deep pain in all four extremities in a relatively symmetric manner. REFLEXES: Trace+ and bilaterally symmetrical at the biceps, triceps, brachioradialis, and knees and 0 at both ankles. The plantar responses were flexor bilaterally. COORDINATION, STANCE & GAIT: Could not be tested. Impression/Recommendations Diagnostic Impression 1. Mr. Figueroa Bullard is a 68-year-old, right-handed, gentleman, who does have a past history of hypertension, diabetes mellitus, congestive heart failure , end-stage renal disease, on hemodialysis, a kidney transplant, and progressive gait problems leading to falls, who has been living in a longterm for the last two weeks or so. He was hospitalized on 02/05/2018 when he was found to be poorly responsive. It was assumed that he may have had a seizure. 2. He is drowsy but can be aroused. He is non verbal. He is unable to follow simple commands. He is unable to communicate in any manner. He continues to be generally weak. He just got back from a PEG placement. 3. On neurological examination, at this time, he does demonstrate significant problems with level of alertness and problems with global cerebral dysfunction. He also exhibits a quadriparesis with minimal movements in all four extremities on deep painful stimuli. His deep tendon reflexes are globally diminished. 4. Laboratory data revealed that he is anemic with a hemoglobin of 9.8. His platelet count is low at 133,000. His chemistry panel reveals a BUN elevated at 80, creatinine elevated at 2.9, glucose elevated at 121, elevated GTT, AST, and alkaline phosphate. BNP elevated to 21,546. Hypoalbuminemia with an albumin of 1.6. TSH elevated at 4.63. A normal B12 and folate level. The urinalysis reveals 1+ leukocyte esterase, 5-10 red blood cells, and 2-4 white blood cells per high-power field. 5. The EEG reveals a moderately severe toxic/metabolic encephalopathy. No inter- ictal discharges were seen. 6. The MRI of the brain revealed "mild atrophy and evidence of chronic small vessel disease involving white matter tracts, but no acute pathology." 7. The patient's history and neurological examination are most compatible with a significant toxic metabolic encephalopathy due to multiple toxic metabolic brain insults. The history of a seizure is suspect. He is more encephalopathic today most probably due to the recent sedation for his PEG. Recommendations 1. Agree with management thus far. 2. No need for antiseizure medicine. 3. Attempts should be made to correct all the patient's toxic metabolic imbalances. 4. Observe closely. Juan Cortez M.D., M.S.P.Jason. JUAN CORTEZ February 08, 2018 16:58
[2018-02-08] MEDS ORDERED: Albuterol/Ipratropium 3ml neb HHN PRN (18:48)
[2018-02-08] MEDS ORDERED: Morphine Sulfate 4mg/ml Inj IVP PRN (18:58)
[2018-02-08] MEDS ORDERED: Zolpidem 5mg tab ORAL PRN (21:00)
[2018-02-09] VITALS (8 sets, daily range): BP systolic 150–168; BP diastolic 83–103
[2018-02-09] MEDS ORDERED: NovoLOG Insulin Flexpen SUBQ SCH
[2018-02-09] MEDS: NovoLOG Insulin Flexpen SUBQ SCH ×4 (00:23→17:12)
[2018-02-09] MEDS: Miralax 17gm pkt ORAL PRN (02:25)
[2018-02-09 07:15] LABS: HEMOGLOBIN 7.7 G/DL (14.2-18.0); MEAN CORPUSCULAR VOLUME 95 FL (80-99); PLATELET COUNT 122 K/UL (150-450); RED BLOOD COUNT 2.42 M/UL (4.70-6.10); RED CELL DISTRIBUTION WIDTH 16.7 % (11.6-14.8)
[2018-02-09 07:43] LABS: ALANINE AMINOTRANSFERASE 37 U/L (12-78); ALBUMIN 1.5 G/DL (3.4-5.0); ALBUMIN/GLOBULIN RATIO 0.4 (1.0-2.7); ALKALINE PHOSPHATASE 983 U/L (46-116); ANION GAP 10 mmol/L (5-15); ASPARTATE AMINO TRANSFERASE 34 U/L (15-37); BILIRUBIN,TOTAL 0.8 MG/DL (0.2-1.0); BLOOD UREA NITROGEN 100 mg/dL (7-18); CALCIUM 8.9 MG/DL (8.5-10.1); CARBON DIOXIDE 23 MMOL/L (21-32); CHLORIDE 108 MMOL/L (98-107); CREATININE 3.4 MG/DL (0.55-1.30); PHOSPHORUS 6.3 MG/DL (2.5-4.9); POTASSIUM 4.8 MMOL/L (3.5-5.1); SODIUM 141 MMOL/L (136-145)
[2018-02-09] MEDS: Carvedilol 25mg Tab NG SCH ×2 (08:42→21:03)
[2018-02-09] MEDS: Renvela 800mg Pkt NG SCH ×3 (08:43→17:13)
[2018-02-09] MEDS: Heparin 5000 units/ml inj SUBQ SCH ×2 (09:51→21:06)
--- NOTE | 2018-02-09 11:38 | GI Progress Note ---
Assessment/Plan Problems: (1) Severe malnutrition ICD Codes: E43 - Unspecified severe protein-calorie malnutrition SNOMED: 60613280 (2) Encounter for PEG (percutaneous endoscopic gastrostomy) ICD Codes: Z43.1 - Encounter for attention to gastrostomy SNOMED: 736340421, 884907142 (3) Nephrotic syndrome ICD Codes: N04.9 - Nephrotic syndrome with unspecified morphologic changes SNOMED: 70239638 (4) Dysphagia ICD Codes: R13.10 - Dysphagia, unspecified SNOMED: 67591577, 543572016 (5) Acute encephalopathy ICD Codes: G93.40 - Encephalopathy, unspecified SNOMED: 67253200, 288918869 (6) Diabetes mellitus ICD Codes: E11.9 - Type 2 diabetes mellitus without complications SNOMED: 14700613 Status: stable Status Narrative Discussed with Dr. Watson. Assessment/Plan SUMMARY OF FINDINGS: Status post successful PEG placement. RECOMMENDATIONS: okay for DC per GI standpoint 1. Abdominal binder. 2. Elevate the head of the bed at all times. 3. G-tube flush. 4. G-tube care. 5. Start tube feeding. fu labs Subjective Subjective limited Objective Last 24 Hour Vital Signs Date Time Temp Pulse Resp B/P (MAP) Pulse Ox O2 Delivery O2 Flow Rate FiO2 02/09/18 08:46 98.4 86 20 168/87 97 98.4 02/09/18 08:42 86 153/87 02/09/18 08:42 86 153/87 02/09/18 04:00 97.2 84 18 159/84 98 97.2 02/09/18 00:00 98.9 90 18 151/88 98 98.9 02/08/18 21:00 80 153/80 02/08/18 20:46 85 18 Room Air 02/08/18 20:34 94 166/96 02/08/18 20:33 166/96 02/08/18 20:00 98.8 94 18 166/96 98 98.8 02/08/18 18:45 97.7 91 20 151/77 99 97.7 02/08/18 16:00 97.9 87 20 158/77 99 Nasal Cannula 3.0 97.9 02/08/18 12:54 74 19 147/46 100 Nasal Cannula 3.0 02/08/18 12:40 73 19 140/40 100 Nasal Cannula 3.0 02/08/18 12:38 207.7 68 20 98 02/08/18 12:37 207.7 74 20 99 02/08/18 12:35 75 19 141/42 100 Nasal Cannula 3.0 02/08/18 12:30 97.6 77 19 144/50 100 Nasal Cannula 3.0 97.6 02/08/18 12:00 97.0 100 21 161/78 98 Room Air 97.0 Intake and Output 02/08/18 02/09/18 19:00 07:00 Intake Total 60 ml Output Total 510 ml Balance 60 ml -510 ml Tube Feeding 60 ml Output Urine Total 510 ml Laboratory Tests Test 02/09/18 05:45 White Blood Count 6.0 K/UL (4.8-10.8) Red Blood Count 2.42 M/UL (4.70-6.10) L Hemoglobin 7.7 G/DL (14.2-18.0) L Hematocrit 23.0 % (42.0-52.0) L Mean Corpuscular Volume 95 FL (80-99) Mean Corpuscular Hemoglobin 31.9 PG (27.0-31.0) H Mean Corpuscular Hemoglobin Concent 33.7 G/DL (32.0-36.0) Red Cell Distribution Width 16.7 % (11.6-14.8) H Platelet Count 122 K/UL (150-450) L Mean Platelet Volume 5.6 FL (6.5-10.1) L Neutrophils (%) (Auto) % (45.0-75.0) Lymphocytes (%) (Auto) % (20.0-45.0) Monocytes (%) (Auto) % (1.0-10.0) Eosinophils (%) (Auto) % (0.0-3.0) Basophils (%) (Auto) % (0.0-2.0) Differential Total Cells Counted 100 Neutrophils % (Manual) 75 % (45-75) Lymphocytes % (Manual) 18 % (20-45) L Monocytes % (Manual) 5 % (1-10) Eosinophils % (Manual) 2 % (0-3) Basophils % (Manual) 0 % (0-2) Band Neutrophils 0 % (0-8) Platelet Estimate Decreased L Platelet Morphology Normal Hypochromasia 1+ Anisocytosis 1+ Sodium Level 141 MMOL/L (136-145) Potassium Level 4.8 MMOL/L (3.5-5.1) Chloride Level 108 MMOL/L (98-107) H Carbon Dioxide Level 23 MMOL/L (21-32) Anion Gap 10 mmol/L (5-15) Blood Urea Nitrogen 100 mg/dL (7-18) H Creatinine 3.4 MG/DL (0.55-1.30) H Estimat Glomerular Filtration Rate 18.2 mL/min (>60) Glucose Level 202 MG/DL (74-106) H Calcium Level 8.9 MG/DL (8.5-10.1) Phosphorus Level 6.3 MG/DL (2.5-4.9) H Magnesium Level 2.9 MG/DL (1.8-2.4) H Total Bilirubin 0.8 MG/DL (0.2-1.0) Aspartate Amino Transf (AST/SGOT) 34 U/L (15-37) Alanine Aminotransferase (ALT/SGPT) 37 U/L (12-78) Alkaline Phosphatase 983 U/L (46-116) H Total Protein 5.3 G/DL (6.4-8.2) L Albumin 1.5 G/DL (3.4-5.0) L Globulin 3.8 g/dL Albumin/Globulin Ratio 0.4 (1.0-2.7) L Height (Feet): 5 Height (Inches): 5.00 Weight (Pounds): 145 General Appearance: alert Cardiovascular: normal rate Respiratory/Chest: normal breath sounds Abdominal Exam: non tender, soft, GT site - c/d/i Jaja Figueredo N.P. February 09, 2018 11:38
--- NOTE | 2018-02-09 11:49 | General Progress Note ---
Assessment/Plan Status: stable Assessment/Plan encephalopathy -the pt lacks capacity to make decisions -Zyprexa 2.5 qh -d/w family Subjective Date patient seen: February 09, 2018 Neurologic/Psychiatric: Reports: anxiety, depressed Allergies: Coded Allergies: No Known Allergies (Unverified , 02/05/18) Subjective the pt has waxing and waning of consciousness. The pt tolerating GT. the pt sister was in room Objective Last 24 Hour Vital Signs Date Time Temp Pulse Resp B/P (MAP) Pulse Ox O2 Delivery O2 Flow Rate FiO2 02/09/18 08:46 98.4 86 20 168/87 97 98.4 02/09/18 08:42 86 153/87 02/09/18 08:42 86 153/87 02/09/18 04:00 97.2 84 18 159/84 98 97.2 02/09/18 00:00 98.9 90 18 151/88 98 98.9 02/08/18 21:00 80 153/80 02/08/18 20:46 85 18 Room Air 02/08/18 20:34 94 166/96 02/08/18 20:33 166/96 02/08/18 20:00 98.8 94 18 166/96 98 98.8 02/08/18 18:45 97.7 91 20 151/77 99 97.7 02/08/18 16:00 97.9 87 20 158/77 99 Nasal Cannula 3.0 97.9 02/08/18 12:54 74 19 147/46 100 Nasal Cannula 3.0 02/08/18 12:40 73 19 140/40 100 Nasal Cannula 3.0 02/08/18 12:38 207.7 68 20 98 02/08/18 12:37 207.7 74 20 99 02/08/18 12:35 75 19 141/42 100 Nasal Cannula 3.0 02/08/18 12:30 97.6 77 19 144/50 100 Nasal Cannula 3.0 97.6 02/08/18 12:00 97.0 100 21 161/78 98 Room Air 97.0 Intake and Output 02/08/18 02/09/18 19:00 07:00 Intake Total 60 ml Output Total 510 ml Balance 60 ml -510 ml Tube Feeding 60 ml Output Urine Total 510 ml Laboratory Tests 02/09/18 05:45: White Blood Count 6.0, Red Blood Count 2.42L, Hemoglobin 7.7L, Hematocrit 23.0L , Mean Corpuscular Volume 95, Mean Corpuscular Hemoglobin 31.9H, Mean Corpuscular Hemoglobin Concent 33.7, Red Cell Distribution Width 16.7H, Platelet Count 122L, Mean Platelet Volume 5.6L, Neutrophils (%) (Auto) , Lymphocytes (%) (Auto) , Monocytes (%) (Auto) , Eosinophils (%) (Auto) , Basophils (%) (Auto) , Differential Total Cells Counted 100, Neutrophils % ( Manual) 75, Lymphocytes % (Manual) 18L, Monocytes % (Manual) 5, Eosinophils % ( Manual) 2, Basophils % (Manual) 0, Band Neutrophils 0, Platelet Estimate DecreasedL, Platelet Morphology Normal, Hypochromasia 1+, Anisocytosis 1+, Sodium Level 141, Potassium Level 4.8, Chloride Level 108H, Carbon Dioxide Level 23, Anion Gap 10, Blood Urea Nitrogen 100H, Creatinine 3.4H, Estimat Glomerular Filtration Rate 18.2, Glucose Level 202H, Calcium Level 8.9, Phosphorus Level 6.3H, Magnesium Level 2.9H, Total Bilirubin 0.8, Aspartate Amino Transf (AST/SGOT) 34, Alanine Aminotransferase (ALT/SGPT) 37, Alkaline Phosphatase 983H, Total Protein 5.3L, Albumin 1.5L, Globulin 3.8, Albumin/ Globulin Ratio 0.4L Height (Feet): 5 Height (Inches): 5.00 Weight (Pounds): 145 General Appearance: WD/WN, no apparent distress, alert, confused Tonny Tang M.D. February 09, 2018 11:49
--- NOTE | 2018-02-09 13:12 | Nephrology Progress Note ---
Assessment/Plan Problem List: (1) Acute encephalopathy (2) Chronic kidney insufficiency (3) History of hypertension (4) Nephrotic syndrome (5) Severe malnutrition Assessment worsenning Anemia Renal failure- Appears mainly prerenal, likely with underlying renal worsened previous kidney transplant acute encephalopathy previous multiple transfusions hypoalbuminemia 4+ proteinuria left arm swelling adjust bp meds Plan Plan: abdominal JAYE : results pending change feeding to Nepro PEG in 2D Echo Noted Avoid nephrotoxics monitor renal parameters venous duplex left arm Neg 24 h urine for total Protein over 5 grams Subjective ROS Limited/Unobtainable: No Constitutional: Reports: malaise Objective Objective Last 24 Hour Vital Signs Date Time Temp Pulse Resp B/P (MAP) Pulse Ox O2 Delivery O2 Flow Rate FiO2 02/09/18 12:05 150/83 02/09/18 12:00 97.9 84 20 158/103 98 97.9 02/09/18 08:50 86 153/87 02/09/18 08:46 98.4 86 20 168/87 97 98.4 02/09/18 08:42 86 153/87 02/09/18 08:42 86 153/87 02/09/18 04:00 97.2 84 18 159/84 98 97.2 02/09/18 00:00 98.9 90 18 151/88 98 98.9 02/08/18 21:00 80 153/80 02/08/18 20:46 85 18 Room Air 02/08/18 20:34 94 166/96 02/08/18 20:33 166/96 02/08/18 20:00 98.8 94 18 166/96 98 98.8 02/08/18 18:45 97.7 91 20 151/77 99 97.7 02/08/18 16:00 97.9 87 20 158/77 99 Nasal Cannula 3.0 97.9 Intake and Output 02/08/18 02/09/18 19:00 07:00 Intake Total 60 ml Output Total 510 ml Balance 60 ml -510 ml Tube Feeding 60 ml Output Urine Total 510 ml Laboratory Tests 02/09/18 05:45: White Blood Count 6.0, Red Blood Count 2.42L, Hemoglobin 7.7L, Hematocrit 23.0L , Mean Corpuscular Volume 95, Mean Corpuscular Hemoglobin 31.9H, Mean Corpuscular Hemoglobin Concent 33.7, Red Cell Distribution Width 16.7H, Platelet Count 122L, Mean Platelet Volume 5.6L, Neutrophils (%) (Auto) , Lymphocytes (%) (Auto) , Monocytes (%) (Auto) , Eosinophils (%) (Auto) , Basophils (%) (Auto) , Differential Total Cells Counted 100, Neutrophils % ( Manual) 75, Lymphocytes % (Manual) 18L, Monocytes % (Manual) 5, Eosinophils % ( Manual) 2, Basophils % (Manual) 0, Band Neutrophils 0, Platelet Estimate DecreasedL, Platelet Morphology Normal, Hypochromasia 1+, Anisocytosis 1+, Sodium Level 141, Potassium Level 4.8, Chloride Level 108H, Carbon Dioxide Level 23, Anion Gap 10, Blood Urea Nitrogen 100H, Creatinine 3.4H, Estimat Glomerular Filtration Rate 18.2, Glucose Level 202H, Calcium Level 8.9, Phosphorus Level 6.3H, Magnesium Level 2.9H, Total Bilirubin 0.8, Aspartate Amino Transf (AST/SGOT) 34, Alanine Aminotransferase (ALT/SGPT) 37, Alkaline Phosphatase 983H, Total Protein 5.3L, Albumin 1.5L, Globulin 3.8, Albumin/ Globulin Ratio 0.4L Height (Feet): 5 Height (Inches): 5.00 Weight (Pounds): 145 General Appearance: no apparent distress Respiratory/Chest: decreased breath sounds Abdomen: soft, other - PEG MELISA HOYT February 09, 2018 13:12
--- NOTE | 2018-02-09 14:21 | Neurology Progress Note ---
Interim History Interim History Interim History Mr. Bullard is drowsy. He can be aroused. He says a few words and is able to follow a few simple commands. He is unable to communicate in a meaningful manner. He continues to be generally weak. His PEG is functioning well. He is getting a blood transfusion now. Review of Systems Neuro Review of Systems Unable to obtain. Objective Physical Exam Last Vital Signs Date Time Temp Pulse Resp B/P (MAP) Pulse Ox O2 Delivery O2 Flow Rate FiO2 02/09/18 12:05 150/83 02/09/18 12:00 97.9 84 20 98 97.9 02/08/18 20:46 Room Air 02/08/18 16:00 3.0 Laboratory Tests Test 02/09/18 05:45 White Blood Count 6.0 K/UL (4.8-10.8) Red Blood Count 2.42 M/UL (4.70-6.10) L Hemoglobin 7.7 G/DL (14.2-18.0) L Hematocrit 23.0 % (42.0-52.0) L Mean Corpuscular Volume 95 FL (80-99) Mean Corpuscular Hemoglobin 31.9 PG (27.0-31.0) H Mean Corpuscular Hemoglobin Concent 33.7 G/DL (32.0-36.0) Red Cell Distribution Width 16.7 % (11.6-14.8) H Platelet Count 122 K/UL (150-450) L Mean Platelet Volume 5.6 FL (6.5-10.1) L Neutrophils (%) (Auto) % (45.0-75.0) Lymphocytes (%) (Auto) % (20.0-45.0) Monocytes (%) (Auto) % (1.0-10.0) Eosinophils (%) (Auto) % (0.0-3.0) Basophils (%) (Auto) % (0.0-2.0) Differential Total Cells Counted 100 Neutrophils % (Manual) 75 % (45-75) Lymphocytes % (Manual) 18 % (20-45) L Monocytes % (Manual) 5 % (1-10) Eosinophils % (Manual) 2 % (0-3) Basophils % (Manual) 0 % (0-2) Band Neutrophils 0 % (0-8) Platelet Estimate Decreased L Platelet Morphology Normal Hypochromasia 1+ Anisocytosis 1+ Sodium Level 141 MMOL/L (136-145) Potassium Level 4.8 MMOL/L (3.5-5.1) Chloride Level 108 MMOL/L (98-107) H Carbon Dioxide Level 23 MMOL/L (21-32) Anion Gap 10 mmol/L (5-15) Blood Urea Nitrogen 100 mg/dL (7-18) H Creatinine 3.4 MG/DL (0.55-1.30) H Estimat Glomerular Filtration Rate 18.2 mL/min (>60) Glucose Level 202 MG/DL (74-106) H Calcium Level 8.9 MG/DL (8.5-10.1) Phosphorus Level 6.3 MG/DL (2.5-4.9) H Magnesium Level 2.9 MG/DL (1.8-2.4) H Total Bilirubin 0.8 MG/DL (0.2-1.0) Aspartate Amino Transf (AST/SGOT) 34 U/L (15-37) Alanine Aminotransferase (ALT/SGPT) 37 U/L (12-78) Alkaline Phosphatase 983 U/L (46-116) H C-Reactive Protein, Quantitative Pending Total Protein 5.3 G/DL (6.4-8.2) L Albumin 1.5 G/DL (3.4-5.0) L Globulin 3.8 g/dL Albumin/Globulin Ratio 0.4 (1.0-2.7) L Neurologic Exam Objective PHYSICAL EXAMINATION: GENERAL: He is a well-developed and well-nourished gentleman, lying in bed, in no acute distress. HEAD: Normocephalic and atraumatic. EENT: Examination benign. NECK: No neck rigidity was observed. NEUROLOGIC EXAMINATION: MENTAL STATUS EXAMINATION: He was drowsy but could be aroused. He was minimally verbal. He was able to follow a few simple commands. Further mental status testing was impossible. SPEECH: He was dysarthric. LANGUAGE : Could not be tested. CRANIAL NERVE EXAMINATION: II: He did not blink to threat on the right side, but did blink to threat on the left side indicating possible visual loss in the right eye. III, IV & : The external ocular movements were present on oculocephalic maneuvers. The pupils were 3 mm in diameter and nonreactive to light. V: He had normal facial sensations, and the temporales, masseters, and pterygoids functioned normally. VII: He had normal facial expressions and no facial asymmetry. VIII: He seemed to be able to hear well and had no nystagmus. IX: The palate moved symmetrically on phonation . X: He had no hoarseness of voice. XI: The sternocleidomastoids and trapezii functioned normally. XII: The tongue was in the midline without any fasciculations or atrophy. MOTOR SYSTEM: The tone was increased in all four extremities with gegenhalten. Examination of muscle mass revealed no focal wasting. He did however have generalized muscle wasting. Examination of power was impossible to perform on individual muscle groups. He did move all four extremities minimally on deep pain. He could not cooperate for further motor testing. SENSORY EXAMINATION: He responded to deep pain in all four extremities in a relatively symmetric manner. REFLEXES: Trace+ and bilaterally symmetrical at the biceps, triceps, brachioradialis, and knees and 0 at both ankles. The plantar responses were flexor bilaterally. COORDINATION, STANCE & GAIT: Could not be tested. Impression/Recommendations Diagnostic Impression 1. Mr. Figueroa Bullard is a 68-year-old, right-handed, gentleman, who does have a past history of hypertension, diabetes mellitus, congestive heart failure , end-stage renal disease, on hemodialysis, a kidney transplant, and progressive gait problems leading to falls, who has been living in a [facility] for the last two weeks or so. He was hospitalized on 02/05/2018 when he was found to be poorly responsive. It was assumed that he may have had a seizure. 2. He is drowsy but can be aroused. He says a few words and is able to follow a few simple commands. He is unable to communicate in a meaningful manner. He continues to be generally weak. His PEG is functioning well. He is getting a blood transfusion now. 3. On neurological examination, at this time, he does demonstrate significant problems with level of alertness and problems with global cerebral dysfunction. He also exhibits a quadriparesis with minimal movements in all four extremities on deep painful stimuli. His deep tendon reflexes are globally diminished. He is minimally less encephalopathic today. 4. Laboratory data revealed that he is anemic with a hemoglobin of 9.8. His platelet count is low at 133,000. His chemistry panel reveals a BUN elevated at 80, creatinine elevated at 2.9, glucose elevated at 121, elevated GTT, AST, and alkaline phosphate. BNP elevated to 21,546. Hypoalbuminemia with an albumin of 1.6. TSH elevated at 4.63. A normal B12 and folate level. The urinalysis reveals 1+ leukocyte esterase, 5-10 red blood cells, and 2-4 white blood cells per high-power field. 5. The EEG reveals a moderately severe toxic/metabolic encephalopathy. No inter- ictal discharges were seen. 6. The MRI of the brain revealed "mild atrophy and evidence of chronic small vessel disease involving white matter tracts, but no acute pathology." 7. The patient's history and neurological examination are most compatible with a significant toxic metabolic encephalopathy due to multiple toxic metabolic brain insults. The history of a seizure is suspect. He is less encephalopathic today. Recommendations 1. Agree with management thus far. 2. No need for antiseizure medicine. 3. Attempts should be made to correct all the patient's toxic metabolic imbalances. 4. Observe closely. Juan Cortez M.D., M.S.P.Jason. JUAN CORTEZ February 09, 2018 14:21
--- NOTE | 2018-02-09 14:58 | Diagnostic Imaging Report ---
Indication: Elevated LFTs. History of HIV. Assess for mass. Technique: US ABD Complete Comparison: None Findings: Mildly coarsened hepatic echotexture. Liver size within normal limits. Hepatic contour appears smooth. No focal mass lesion is appreciated sonographically. The portal vein is patent with normal direction of flow. No appreciable biliary ductal dilatation. Common bile duct measures approximately 2 mm in diameter. Gallbladder is poorly evaluated. There is a left lower quadrant kidney transplant. Vascular flow to the graft is identified. There is no evidence of hydronephrosis. The kidneys were not imaged. Spleen is within upper limits for normal size. A left pleural effusion is noted. IMPRESSION: Evaluation limited due to overlying bandages and overlying bowel gas. The pancreas and portions of the abdominal aorta are not visualized. The gallbladder is poorly evaluated as well. The presence of a gallbladder pathology is not entirely excluded. No definite focal hepatic mass lesion appreciated. Evidence of left lower quadrant renal transplant. [place] kidneys not imaged. Borderline splenomegaly. Left pleural effusion partially visualized. Given overall limitations of the exam, recommend more sensitive evaluation with contrast-enhanced CT or MRI.
--- NOTE | 2018-02-09 15:09 | Infectious Diseases Prog Note ---
Assessment/Plan Assessment/Plan Assessment: Acute encephalopathy- ?related to pain meds in the setting of renal dysfunction - r/o intracranial pathology- no signs or symptoms of infectious process -Brain MRI: No acute intracranial findings. Mild atrophy and evidence of chronic small vessel disease involving white matter tracts. -CT head: No evidence of acute intracranial hemorrhage, mass effect, midline shift or cortical edema. MRI may be obtained for more sensitive evaluation as clinically indicated. Atrophy and nonspecific periventricular hypoattenuation suggestive of chronic ischemic microvascular changes. Intracranial atherosclerosis. Hypothermia, resolved -no leukocytosis -u/a no pyuria -CXR: Cardiomegaly with interstitial opacification/edema, small left/trace right pleural effusions and left basilar atelectasis/consolidation. Findings may be related to CHF/fluid overload. Superimposed pneumonia should be excluded clinically. -Bcx NTD s/p PEG 02/09 Very elevated ALP/GGT- ?etiology (normal ALT, AST, Tbili) -abd US: Evaluation limited due to overlying bandages and overlying bowel gas. The pancreas and portions of the abdominal aorta are not visualized. The gallbladder is poorly evaluated as well. The presence of a gallbladder pathology is not entirely excluded. No definite focal hepatic mass lesion appreciated. Evidence of left lower quadrant renal transplant. [place] kidneys not imaged. Borderline splenomegaly. Left pleural effusion partially visualized. ?Seizure episode AI, worsening ESRD s/p kidney transplant about 3 years ago DM2 HTN Plan: -Continue to monitor off abx -02/05 Vanco and Ceftriaxone x1 -f/u cx -Monitor CBC/BMP, temperatures -aspiration precautions -Neuro f/u -PEG care -wound care/prevention per hosp protocol Thank you for this consultation. Will continue to follow along with you. Discussed with RN. Subjective Allergies: Coded Allergies: No Known Allergies (Unverified , 02/05/18) Subjective afebrile no leukocytosis off abx Bcx NTD s/p PEG today Objective Vital Signs Last 24 Hour Vital Signs Date Time Temp Pulse Resp B/P (MAP) Pulse Ox O2 Delivery O2 Flow Rate FiO2 02/09/18 12:05 150/83 02/09/18 12:00 97.9 84 20 158/103 98 97.9 02/09/18 08:50 86 153/87 02/09/18 08:46 98.4 86 20 168/87 97 98.4 5/4/18 08:42 86 153/87 02/09/18 08:42 86 153/87 02/09/18 08:32 68 20 Room Air 02/09/18 04:00 97.2 84 18 159/84 98 97.2 02/09/18 00:00 98.9 90 18 151/88 98 98.9 02/08/18 21:00 80 153/80 02/08/18 20:46 85 18 Room Air 02/08/18 20:34 94 166/96 02/08/18 20:33 166/96 02/08/18 20:00 98.8 94 18 166/96 98 98.8 02/08/18 18:45 97.7 91 20 151/77 99 97.7 02/08/18 16:00 97.9 87 20 158/77 99 Nasal Cannula 3.0 97.9 Height (Feet): 5 Height (Inches): 5.00 Weight (Pounds): 145 Objective General Appearance: WD/WN, no apparent distress Lines, tubes and drains: peripheral HEENT: normocephalic, atraumatic Neck: non-tender, normal alignment Respiratory/Chest: chest wall non-tender, lungs clear, normal breath sounds Cardiovascular/Chest: normal rate Abdomen: normal bowel sounds, non tender; s/p PEG, abdominal binder in place Extremities: trace edema, bruises, ecchymosis Laboratory Tests Test 02/09/18 05:45 White Blood Count 6.0 K/UL (4.8-10.8) Red Blood Count 2.42 M/UL (4.70-6.10) L Hemoglobin 7.7 G/DL (14.2-18.0) L Hematocrit 23.0 % (42.0-52.0) L Mean Corpuscular Volume 95 FL (80-99) Mean Corpuscular Hemoglobin 31.9 PG (27.0-31.0) H Mean Corpuscular Hemoglobin Concent 33.7 G/DL (32.0-36.0) Red Cell Distribution Width 16.7 % (11.6-14.8) H Platelet Count 122 K/UL (150-450) L Mean Platelet Volume 5.6 FL (6.5-10.1) L Neutrophils (%) (Auto) % (45.0-75.0) Lymphocytes (%) (Auto) % (20.0-45.0) Monocytes (%) (Auto) % (1.0-10.0) Eosinophils (%) (Auto) % (0.0-3.0) Basophils (%) (Auto) % (0.0-2.0) Differential Total Cells Counted 100 Neutrophils % (Manual) 75 % (45-75) Lymphocytes % (Manual) 18 % (20-45) L Monocytes % (Manual) 5 % (1-10) Eosinophils % (Manual) 2 % (0-3) Basophils % (Manual) 0 % (0-2) Band Neutrophils 0 % (0-8) Platelet Estimate Decreased L Platelet Morphology Normal Hypochromasia 1+ Anisocytosis 1+ Sodium Level 141 MMOL/L (136-145) Potassium Level 4.8 MMOL/L (3.5-5.1) Chloride Level 108 MMOL/L (98-107) H Carbon Dioxide Level 23 MMOL/L (21-32) Anion Gap 10 mmol/L (5-15) Blood Urea Nitrogen 100 mg/dL (7-18) H Creatinine 3.4 MG/DL (0.55-1.30) H Estimat Glomerular Filtration Rate 18.2 mL/min (>60) Glucose Level 202 MG/DL (74-106) H Calcium Level 8.9 MG/DL (8.5-10.1) Phosphorus Level 6.3 MG/DL (2.5-4.9) H Magnesium Level 2.9 MG/DL (1.8-2.4) H Total Bilirubin 0.8 MG/DL (0.2-1.0) Aspartate Amino Transf (AST/SGOT) 34 U/L (15-37) Alanine Aminotransferase (ALT/SGPT) 37 U/L (12-78) Alkaline Phosphatase 983 U/L (46-116) H C-Reactive Protein, Quantitative 22.4 mg/dL (0.00-0.90) H Total Protein 5.3 G/DL (6.4-8.2) L Albumin 1.5 G/DL (3.4-5.0) L Globulin 3.8 g/dL Albumin/Globulin Ratio 0.4 (1.0-2.7) L Current Medications Medications (Trade) Dose Ordered Sig/Manuel Route PRN Reason Start Time Stop Time Status Last Admin Dose Admin Acetaminophen (Tylenol) 650 mg Q4H PRN ORAL fever (temp>100.5F) 02/08/18 18:47 03/07/18 18:46 Albuterol/ Ipratropium (Albuterol/ Ipratropium) 3 ml Q6H PRN HHN dyspnea 02/08/18 18:48 02/10/18 18:47 Amlodipine Besylate (Norvasc) 5 mg DAILY NG 02/09/18 09:00 03/10/18 08:59 02/09/18 08:42 Carvedilol (Coreg) 25 mg Q12HR NG 02/08/18 21:00 03/07/18 20:59 02/09/18 08:42 Clonidine HCl (Catapres Tab) 0.1 mg Q4H PRN NG For High BP 160 and above 02/08/18 18:48 03/07/18 18:47 02/08/18 20:33 Dextrose (Dextrose 50%) 25 ml STAT PRN IV Hypoglycemia BS 60-69mg/dl 02/08/18 18:48 03/10/18 18:47 Dextrose (Dextrose 50%) 50 ml STAT PRN IV Hypoglycemia BS less than 60mg 02/08/18 18:48 03/10/18 18:47 Famotidine (Pepcid) 20 mg Q12HR GT 02/08/18 21:00 03/08/18 13:31 02/09/18 08:43 Heparin Sodium (Porcine) (Heparin 5000 units/ml) 5,000 units EVERY 12 HOURS SUBQ 02/08/18 21:00 03/07/18 20:59 02/09/18 09:51 Insulin Aspart (NovoLOG) EVERY 6 HOURS SUBQ 02/09/18 00:00 03/11/18 00:00 02/09/18 12:17 Morphine Sulfate (Morphine Sulfate) 1 mg Q4H PRN IVP For Pain 02/08/18 18:58 02/12/18 18:57 02/08/18 20:40 Olanzapine (ZyPREXA) 2.5 mg BEDTIME GT 02/08/18 21:00 03/08/18 22:12 02/08/18 20:33 Ondansetron HCl (Zofran) 4 mg Q6H PRN IVP Nausea & Vomiting 02/08/18 18:51 03/07/18 18:50 Polyethylene Glycol (Miralax) 17 gm HSPRN PRN ORAL Constipation 02/08/18 21:00 03/10/18 20:59 02/09/18 02:25 Prednisone (predniSONE) 5 mg DAILY ORAL 02/09/18 09:00 03/08/18 09:59 02/09/18 08:43 Sevelamer Carbonate (Renvela) 800 mg THREE TIMES A DAY NG 02/09/18 09:00 03/09/18 17:59 02/09/18 12:18 Tacrolimus (Prograf) 0.5 mg EVERY 12 HOURS ORAL 02/08/18 21:00 03/07/18 20:59 02/09/18 08:42 Zolpidem Tartrate (Ambien) 5 mg HSPRN PRN ORAL Insomnia 02/08/18 21:00 02/15/18 20:59 Tia Ortega M.D. February 09, 2018 15:09
--- NOTE | 2018-02-09 15:53 | Pulmonology Progress Note ---
Assessment/Plan Problems: (1) Acute encephalopathy (2) Chronic kidney insufficiency (3) History of hypertension (4) Hx of kidney transplant (5) Diabetes mellitus Assessment/Plan Gtube done neuro evaluation appreciated family would agree with Feeding Tube if pt can't swallow siding scale monitor BP med/surg d/w pts son at the bed site Subjective ROS Limited/Unobtainable: No Interval Events: tolerating feeding tube Allergies: Coded Allergies: No Known Allergies (Unverified , 02/05/18) Objective Last 24 Hour Vital Signs Date Time Temp Pulse Resp B/P (MAP) Pulse Ox O2 Delivery O2 Flow Rate FiO2 02/09/18 12:05 150/83 02/09/18 12:00 97.9 84 20 158/103 98 97.9 02/09/18 08:50 86 153/87 02/09/18 08:46 98.4 86 20 168/87 97 98.4 02/09/18 08:42 86 153/87 02/09/18 08:42 86 153/87 02/09/18 08:32 68 20 Room Air 02/09/18 04:00 97.2 84 18 159/84 98 97.2 02/09/18 00:00 98.9 90 18 151/88 98 98.9 02/08/18 21:00 80 153/80 02/08/18 20:46 85 18 Room Air 02/08/18 20:34 94 166/96 02/08/18 20:33 166/96 02/08/18 20:00 98.8 94 18 166/96 98 98.8 02/08/18 18:45 97.7 91 20 151/77 99 97.7 02/08/18 16:00 97.9 87 20 158/77 99 Nasal Cannula 3.0 97.9 Intake and Output 02/08/18 02/09/18 19:00 07:00 Intake Total 60 ml Output Total 510 ml Balance 60 ml -510 ml Tube Feeding 60 ml Output Urine Total 510 ml General Appearance: WD/WN HEENT: normocephalic, anicteric Respiratory/Chest: chest wall non-tender, lungs clear Cardiovascular: normal peripheral pulses, normal rate Abdomen: normal bowel sounds, soft, non tender Genitourinary: normal external genitalia Extremities: no cyanosis Skin: no rash Neurologic/Psychiatric: binder layer II-XII grossly normal Lymphatic: no neck adenopathy Laboratory Tests 02/09/18 05:45: White Blood Count 6.0, Red Blood Count 2.42L, Hemoglobin 7.7L, Hematocrit 23.0L , Mean Corpuscular Volume 95, Mean Corpuscular Hemoglobin 31.9H, Mean Corpuscular Hemoglobin Concent 33.7, Red Cell Distribution Width 16.7H, Platelet Count 122L, Mean Platelet Volume 5.6L, Neutrophils (%) (Auto) , Lymphocytes (%) (Auto) , Monocytes (%) (Auto) , Eosinophils (%) (Auto) , Basophils (%) (Auto) , Differential Total Cells Counted 100, Neutrophils % ( Manual) 75, Lymphocytes % (Manual) 18L, Monocytes % (Manual) 5, Eosinophils % ( Manual) 2, Basophils % (Manual) 0, Band Neutrophils 0, Platelet Estimate DecreasedL, Platelet Morphology Normal, Hypochromasia 1+, Anisocytosis 1+, Sodium Level 141, Potassium Level 4.8, Chloride Level 108H, Carbon Dioxide Level 23, Anion Gap 10, Blood Urea Nitrogen 100H, Creatinine 3.4H, Estimat Glomerular Filtration Rate 18.2, Glucose Level 202H, Calcium Level 8.9, Phosphorus Level 6.3H, Magnesium Level 2.9H, Total Bilirubin 0.8, Aspartate Amino Transf (AST/SGOT) 34, Alanine Aminotransferase (ALT/SGPT) 37, Alkaline Phosphatase 983H, C-Reactive Protein, Quantitative 22.4H, Total Protein 5.3L, Albumin 1.5L, Globulin 3.8, Albumin/Globulin Ratio 0.4L Current Medications Medications (Trade) Dose Ordered Sig/Manuel Route PRN Reason Start Time Stop Time Status Last Admin Dose Admin Acetaminophen (Tylenol) 650 mg Q4H PRN ORAL fever (temp>100.5F) 02/08/18 18:47 03/07/18 18:46 Albuterol/ Ipratropium (Albuterol/ Ipratropium) 3 ml Q6H PRN HHN dyspnea 02/08/18 18:48 02/10/18 18:47 Amlodipine Besylate (Norvasc) 5 mg DAILY NG 02/09/18 09:00 03/10/18 08:59 02/09/18 08:42 Carvedilol (Coreg) 25 mg Q12HR NG 02/08/18 21:00 03/07/18 20:59 02/09/18 08:42 Clonidine HCl (Catapres Tab) 0.1 mg Q4H PRN NG For High BP 160 and above 02/08/18 18:48 03/07/18 18:47 02/08/18 20:33 Dextrose (Dextrose 50%) 25 ml STAT PRN IV Hypoglycemia BS 60-69mg/dl 02/08/18 18:48 03/10/18 18:47 Dextrose (Dextrose 50%) 50 ml STAT PRN IV Hypoglycemia BS less than 60mg 02/08/18 18:48 03/10/18 18:47 Famotidine (Pepcid) 20 mg Q12HR GT 02/08/18 21:00 03/08/18 13:31 02/09/18 08:43 Heparin Sodium (Porcine) (Heparin 5000 units/ml) 5,000 units EVERY 12 HOURS SUBQ 02/08/18 21:00 03/07/18 20:59 02/09/18 09:51 Insulin Aspart (NovoLOG) EVERY 6 HOURS SUBQ 02/09/18 00:00 03/11/18 00:00 02/09/18 12:17 Morphine Sulfate (Morphine Sulfate) 1 mg Q4H PRN IVP For Pain 02/08/18 18:58 02/12/18 18:57 02/08/18 20:40 Olanzapine (ZyPREXA) 2.5 mg BEDTIME GT 02/08/18 21:00 03/08/18 22:12 02/08/18 20:33 Ondansetron HCl (Zofran) 4 mg Q6H PRN IVP Nausea & Vomiting 02/08/18 18:51 03/07/18 18:50 Polyethylene Glycol (Miralax) 17 gm HSPRN PRN ORAL Constipation 02/08/18 21:00 03/10/18 20:59 02/09/18 02:25 Prednisone (predniSONE) 5 mg DAILY ORAL 02/09/18 09:00 03/08/18 09:59 02/09/18 08:43 Sevelamer Carbonate (Renvela) 800 mg THREE TIMES A DAY NG 02/09/18 09:00 03/09/18 17:59 02/09/18 12:18 Tacrolimus (Prograf) 0.5 mg EVERY 12 HOURS ORAL 02/08/18 21:00 03/07/18 20:59 02/09/18 08:42 Zolpidem Tartrate (Ambien) 5 mg HSPRN PRN ORAL Insomnia 02/08/18 21:00 02/15/18 20:59 Le Bagley MD February 09, 2018 15:52
[2018-02-10] VITALS (8 sets, daily range): BP systolic 151–163; BP diastolic 48–101
[2018-02-10] MEDS: NovoLOG Insulin Flexpen SUBQ SCH ×4 (00:31→18:48)
[2018-02-10 09:01] LABS: BASOPHILS % (AUTO) 0.7 % (0.0-2.0); EOSINOPHILS % (AUTO) 5.9 % (0.0-3.0); HEMATOCRIT 25.2 % (42.0-52.0); HEMOGLOBIN 8.8 G/DL (14.2-18.0); LYMPHOCYTES % (AUTO) 15.4 % (20.0-45.0); MEAN CORPUSCULAR VOLUME 93 FL (80-99); MONOCYTES % (AUTO) 9.3 % (1.0-10.0); NEUTROPHILS % (AUTO) 68.7 % (45.0-75.0); PLATELET COUNT 139 K/UL (150-450); RED CELL DISTRIBUTION WIDTH 17.1 % (11.6-14.8); WHITE BLOOD COUNT 5.6 K/UL (4.8-10.8)
[2018-02-10] MEDS: Renvela 800mg Pkt NG SCH ×3 (09:46→18:39)
[2018-02-10] MEDS: Carvedilol 25mg Tab NG SCH ×2 (09:50→20:55)
[2018-02-10 09:52] LABS: ALANINE AMINOTRANSFERASE 30 U/L (12-78); ALBUMIN 1.5 G/DL (3.4-5.0); ALBUMIN/GLOBULIN RATIO 0.5 (1.0-2.7); ALKALINE PHOSPHATASE 1106 U/L (46-116); ANION GAP 10 mmol/L (5-15); ASPARTATE AMINO TRANSFERASE 48 U/L (15-37); BILIRUBIN,TOTAL 0.8 MG/DL (0.2-1.0); BLOOD UREA NITROGEN 104 mg/dL (7-18); CALCIUM 8.4 MG/DL (8.5-10.1); CARBON DIOXIDE 23 MMOL/L (21-32); CHLORIDE 111 MMOL/L (98-107); CREATININE 3.2 MG/DL (0.55-1.30); POTASSIUM 4.7 MMOL/L (3.5-5.1); SODIUM 144 MMOL/L (136-145)
[2018-02-10] MEDS: Heparin 5000 units/ml inj SUBQ SCH ×2 (09:52→20:57)
--- NOTE | 2018-02-10 10:00 | Nephrology Progress Note ---
Assessment/Plan Problem List: (1) Acute encephalopathy (2) Chronic kidney insufficiency (3) History of hypertension (4) Nephrotic syndrome (5) Severe malnutrition Assessment worsenning Anemia Renal failure- Appears mainly prerenal, likely with underlying renal worsened previous kidney transplant acute encephalopathy previous multiple transfusions hypoalbuminemia 4+ proteinuria left arm swelling adjust bp meds Plan Plan: abdominal JAYE : results noted change feeding to Nepro PEG in 2D Echo Noted Avoid nephrotoxics monitor renal parameters venous duplex left arm Neg 24 h urine for total Protein over 5 grams Subjective ROS Limited/Unobtainable: No Objective Objective Last 24 Hour Vital Signs Date Time Temp Pulse Resp B/P (MAP) Pulse Ox O2 Delivery O2 Flow Rate FiO2 02/10/18 09:50 83 157/85 02/10/18 09:50 83 157/85 02/10/18 08:17 72 20 Room Air 21 02/10/18 08:12 Room Air 02/10/18 08:12 98.2 78 20 151/81 98 98.2 02/10/18 05:54 162/48 02/10/18 04:00 97.9 78 19 163/48 99 Room Air 97.9 02/10/18 00:00 97.2 81 17 162/55 99 Room Air 97.2 02/09/18 21:03 71 163/95 02/09/18 21:02 163/95 02/09/18 20:10 71 20 Room Air 21 02/09/18 20:00 97.2 82 20 163/95 100 Room Air 97.2 02/09/18 15:58 98.2 82 20 156/87 99 98.2 02/09/18 12:05 150/83 02/09/18 12:00 97.9 84 20 158/103 98 97.9 Intake and Output 02/09/18 02/10/18 19:00 07:00 Intake Total 730 ml Output Total 300 ml 300 ml Balance 430 ml -300 ml Free Water 150 ml Tube Feeding 330 ml Blood Product 250 ml Output Urine Total 300 ml 300 ml Laboratory Tests 02/10/18 08:50: White Blood Count 5.6, Red Blood Count 2.70L, Hemoglobin 8.8L, Hematocrit 25.2L , Mean Corpuscular Volume 93, Mean Corpuscular Hemoglobin 32.7H, Mean Corpuscular Hemoglobin Concent 35.0, Red Cell Distribution Width 17.1H, Platelet Count 139L, Mean Platelet Volume 4.9L, Neutrophils (%) (Auto) 68.7, Lymphocytes (%) (Auto) 15.4L, Monocytes (%) (Auto) 9.3, Eosinophils (%) (Auto) 5.9H, Basophils (%) (Auto) 0.7, Sodium Level [Pending], Potassium Level [Pending ], Chloride Level [Pending], Carbon Dioxide Level [Pending], Blood Urea Nitrogen [Pending], Creatinine [Pending], Estimat Glomerular Filtration Rate [ Pending], Glucose Level [Pending], Uric Acid 8.7H, Calcium Level [Pending], Phosphorus Level 5.0H, Magnesium Level 3.1H, Total Bilirubin [Pending], Aspartate Amino Transf (AST/SGOT) [Pending], Alanine Aminotransferase (ALT/SGPT ) [Pending], Alkaline Phosphatase [Pending], Pro-B-Type Natriuretic Peptide 26556G, Total Protein [Pending], Albumin [Pending], Globulin [Pending] Height (Feet): 5 Height (Inches): 5.00 Weight (Pounds): 145 General Appearance: no apparent distress Cardiovascular: normal rate Respiratory/Chest: decreased breath sounds Abdomen: soft MELISA HOYT February 10, 2018 10:00
--- NOTE | 2018-02-10 12:09 | Infectious Diseases Prog Note ---
Assessment/Plan Assessment/Plan Assessment: Acute encephalopathy- ?related to pain meds in the setting of renal dysfunction - r/o intracranial pathology- no signs or symptoms of infectious process -Brain MRI: No acute intracranial findings. Mild atrophy and evidence of chronic small vessel disease involving white matter tracts. -CT head: No evidence of acute intracranial hemorrhage, mass effect, midline shift or cortical edema. MRI may be obtained for more sensitive evaluation as clinically indicated. Atrophy and nonspecific periventricular hypoattenuation suggestive of chronic ischemic microvascular changes. Intracranial atherosclerosis. Hypothermia, resolved -no leukocytosis -u/a no pyuria -CXR: Cardiomegaly with interstitial opacification/edema, small left/trace right pleural effusions and left basilar atelectasis/consolidation. Findings may be related to CHF/fluid overload. Superimposed pneumonia should be excluded clinically. -Bcx NTD s/p PEG 02/08 Very elevated ALP/GGT- ?etiology (normal ALT, AST, Tbili) -abd US: Evaluation limited due to overlying bandages and overlying bowel gas. The pancreas and portions of the abdominal aorta are not visualized. The gallbladder is poorly evaluated as well. The presence of a gallbladder pathology is not entirely excluded. No definite focal hepatic mass lesion appreciated. Evidence of left lower quadrant renal transplant. [place] kidneys not imaged. Borderline splenomegaly. Left pleural effusion partially visualized. Neck pain ?Seizure episode AI, worsening ESRD s/p kidney transplant about 3 years ago DM2 HTN Plan: -Continue to monitor off abx -02/05 Vanco and Ceftriaxone x1 -f/u cx -Monitor CBC/BMP, temperatures -aspiration precautions -Neuro f/u -PEG care -wound care/prevention per hosp protocol -xray cervical spine due to neck pain; further w/u per primary Thank you for this consultation. Will continue to follow along with you. Discussed with RN. Subjective Allergies: Coded Allergies: No Known Allergies (Unverified , 02/05/18) Subjective afebrile no leukocytosis off abx Bcx NTD Objective Vital Signs Last 24 Hour Vital Signs Date Time Temp Pulse Resp B/P (MAP) Pulse Ox O2 Delivery O2 Flow Rate FiO2 02/10/18 11:56 98.0 82 20 155/82 98 98.0 02/10/18 09:50 83 157/85 02/10/18 09:50 83 157/85 02/10/18 09:50 83 157/85 02/10/18 08:17 72 20 Room Air 21 02/10/18 08:12 Room Air 02/10/18 08:12 98.2 78 20 151/81 98 98.2 02/10/18 05:54 162/48 02/10/18 04:00 97.9 78 19 163/48 99 Room Air 97.9 02/10/18 00:00 97.2 81 17 162/55 99 Room Air 97.2 02/09/18 21:03 71 163/95 02/09/18 21:02 163/95 02/09/18 20:10 71 20 Room Air 21 02/09/18 20:00 97.2 82 20 163/95 100 Room Air 97.2 02/09/18 15:58 98.2 82 20 156/87 99 98.2 Height (Feet): 5 Height (Inches): 5.00 Weight (Pounds): 145 Objective General Appearance: WD/WN, no apparent distress Lines, tubes and drains: peripheral HEENT: normocephalic, atraumatic Neck: non-tender, normal alignment Respiratory/Chest: chest wall non-tender, lungs clear, normal breath sounds Cardiovascular/Chest: normal rate Abdomen: normal bowel sounds, non tender; s/p PEG, abdominal binder in place Extremities: trace edema, bruises, ecchymosis Laboratory Tests Test 02/10/18 08:50 White Blood Count 5.6 K/UL (4.8-10.8) Red Blood Count 2.70 M/UL (4.70-6.10) L Hemoglobin 8.8 G/DL (14.2-18.0) L Hematocrit 25.2 % (42.0-52.0) L Mean Corpuscular Volume 93 FL (80-99) Mean Corpuscular Hemoglobin 32.7 PG (27.0-31.0) H Mean Corpuscular Hemoglobin Concent 35.0 G/DL (32.0-36.0) Red Cell Distribution Width 17.1 % (11.6-14.8) H Platelet Count 139 K/UL (150-450) L Mean Platelet Volume 4.9 FL (6.5-10.1) L Neutrophils (%) (Auto) 68.7 % (45.0-75.0) Lymphocytes (%) (Auto) 15.4 % (20.0-45.0) L Monocytes (%) (Auto) 9.3 % (1.0-10.0) Eosinophils (%) (Auto) 5.9 % (0.0-3.0) H Basophils (%) (Auto) 0.7 % (0.0-2.0) Sodium Level 144 MMOL/L (136-145) Potassium Level 4.7 MMOL/L (3.5-5.1) Chloride Level 111 MMOL/L (98-107) H Carbon Dioxide Level 23 MMOL/L (21-32) Anion Gap 10 mmol/L (5-15) Blood Urea Nitrogen 104 mg/dL (7-18) H Creatinine 3.2 MG/DL (0.55-1.30) H Estimat Glomerular Filtration Rate 19.5 mL/min (>60) Glucose Level 139 MG/DL (74-106) H Uric Acid 8.7 MG/DL (2.6-7.2) H Calcium Level 8.4 MG/DL (8.5-10.1) L Phosphorus Level 5.0 MG/DL (2.5-4.9) H Magnesium Level 3.1 MG/DL (1.8-2.4) H Total Bilirubin 0.8 MG/DL (0.2-1.0) Aspartate Amino Transf (AST/SGOT) 48 U/L (15-37) H Alanine Aminotransferase (ALT/SGPT) 30 U/L (12-78) Alkaline Phosphatase 1106 U/L (46-116) H Pro-B-Type Natriuretic Peptide 00832 pg/mL (0-125) H Total Protein 4.8 G/DL (6.4-8.2) L Albumin 1.5 G/DL (3.4-5.0) L Globulin 3.3 g/dL Albumin/Globulin Ratio 0.5 (1.0-2.7) L Current Medications Medications (Trade) Dose Ordered Sig/Manuel Route PRN Reason Start Time Stop Time Status Last Admin Dose Admin Acetaminophen (Tylenol) 650 mg Q4H PRN ORAL fever (temp>100.5F) 02/08/18 18:47 03/07/18 18:46 Albuterol/ Ipratropium (Albuterol/ Ipratropium) 3 ml Q6H PRN HHN dyspnea 02/08/18 18:48 02/10/18 18:47 Amlodipine Besylate (Norvasc) 5 mg DAILY NG 02/09/18 09:00 03/10/18 08:59 02/10/18 09:50 Carvedilol (Coreg) 25 mg Q12HR NG 02/08/18 21:00 03/07/18 20:59 02/10/18 09:50 Clonidine HCl (Catapres Tab) 0.1 mg Q4H PRN NG For High BP 160 and above 02/08/18 18:48 03/07/18 18:47 02/10/18 05:54 Dextrose (Dextrose 50%) 25 ml STAT PRN IV Hypoglycemia BS 60-69mg/dl 02/08/18 18:48 03/10/18 18:47 Dextrose (Dextrose 50%) 50 ml STAT PRN IV Hypoglycemia BS less than 60mg 02/08/18 18:48 03/10/18 18:47 Famotidine (Pepcid) 20 mg Q12HR GT 02/08/18 21:00 03/08/18 13:31 02/10/18 09:47 Heparin Sodium (Porcine) (Heparin 5000 units/ml) 5,000 units EVERY 12 HOURS SUBQ 02/08/18 21:00 03/07/18 20:59 02/10/18 09:52 Insulin Aspart (NovoLOG) EVERY 6 HOURS SUBQ 02/09/18 00:00 03/11/18 00:00 02/10/18 05:52 Morphine Sulfate (Morphine Sulfate) 1 mg Q4H PRN IVP For Pain 02/08/18 18:58 02/12/18 18:57 02/08/18 20:40 Olanzapine (ZyPREXA) 2.5 mg BEDTIME GT 02/08/18 21:00 03/08/18 22:12 02/09/18 21:03 Ondansetron HCl (Zofran) 4 mg Q6H PRN IVP Nausea & Vomiting 02/08/18 18:51 03/07/18 18:50 Polyethylene Glycol (Miralax) 17 gm HSPRN PRN ORAL Constipation 02/08/18 21:00 03/10/18 20:59 02/09/18 02:25 Prednisone (predniSONE) 5 mg DAILY ORAL 02/09/18 09:00 03/08/18 09:59 02/10/18 09:47 Sevelamer Carbonate (Renvela) 800 mg THREE TIMES A DAY NG 02/09/18 09:00 03/09/18 17:59 02/10/18 09:46 Tacrolimus (Prograf) 0.5 mg EVERY 12 HOURS ORAL 02/08/18 21:00 03/07/18 20:59 02/10/18 09:47 Zolpidem Tartrate (Ambien) 5 mg HSPRN PRN ORAL Insomnia 02/08/18 21:00 02/15/18 20:59 02/09/18 21:02 Tia Ortega M.D. February 10, 2018 12:09
--- NOTE | 2018-02-10 13:10 | Pulmonology Progress Note ---
Assessment/Plan Assessment/Plan ASSESSMENT acute toxic metabolic encephalopathy secondary to multiply brain insults chronic renal insufficiency history of kidney transplant status post percutaneous endoscopic gastrostomy tube placement on 02/08/18 Diabetes mellitus Nephrotic syndrome Hypertension Severe protein calorie malnutrition Anemia of chronic kidney disease PLAN OF CARE Med Surg floor failed swallow eval, failure to thrive status post PEG placement 02/08/18 abdominal binder GI closely follows Tube feeding started as per on dietary commendations with strict aspiration and reflux precautions [employer] follows monitor renal parameters and electrolytes , avoid nephrotoxic 24 hours urine with more than 5 gram of protein, c/w nephrotic syndrome continue prednisone and Prograf Neurologist follows no need for antiseizure medications CT of the head no acute intracranial pathology MRI of the brain no acute intracranial pathology check ammonia level in am Echocardiogram with ejection fraction of 60% and right ventricular systolic pressure of 29 venous duplex LUE revealed no evidence of DVT DVT/ GI prophayxlis anemia workup consistent with anemia of chronic disease , monitor hemoglobin, hematocrit with goal to keep hemoglobin above 8 blood pressure management with calcium channel melanie and beta melanie , optimize as needed supplemental oxygen, pulmonary toilet as needed ultrasound of abdomen noted nutritional recommendations implemented in plan of care blood sugar management with sliding scale insulin psychiatrist closely follows per psychiatrist patient lacks capacity to make informed decision patient started on Zyprexa case discussed and evaluated by supervising physician Subjective Allergies: Coded Allergies: No Known Allergies (Unverified , 02/05/18) Subjective no signs of distress Objective Last 24 Hour Vital Signs Date Time Temp Pulse Resp B/P (MAP) Pulse Ox O2 Delivery O2 Flow Rate FiO2 02/10/18 11:56 98.0 82 20 155/82 98 98.0 02/10/18 09:50 83 157/85 02/10/18 09:50 83 157/85 02/10/18 09:50 83 157/85 02/10/18 08:17 72 20 Room Air 21 02/10/18 08:12 Room Air 02/10/18 08:12 98.2 78 20 151/81 98 98.2 02/10/18 05:54 162/48 02/10/18 04:00 97.9 78 19 163/48 99 Room Air 97.9 02/10/18 00:00 97.2 81 17 162/55 99 Room Air 97.2 02/09/18 21:03 71 163/95 02/09/18 21:02 163/95 02/09/18 20:10 71 20 Room Air 21 02/09/18 20:00 97.2 82 20 163/95 100 Room Air 97.2 02/09/18 15:58 98.2 82 20 156/87 99 98.2 Intake and Output 02/09/18 02/10/18 19:00 07:00 Intake Total 730 ml Output Total 300 ml 300 ml Balance 430 ml -300 ml Free Water 150 ml Tube Feeding 330 ml Blood Product 250 ml Output Urine Total 300 ml 300 ml General Appearance: no acute distress HEENT: normocephalic, atraumatic, other - dysarthric, minimally verbal Respiratory/Chest: no respiratory distress, no accessory muscle use, decreased breath sounds Cardiovascular: normal peripheral pulses, normal rate Abdomen: soft, non tender, non distended, other - G tube Extremities: pedal pulses normal Neurologic/Psychiatric: abnormal gait, other - increased tone x 4 extremities Laboratory Tests 02/10/18 08:50: White Blood Count 5.6, Red Blood Count 2.70L, Hemoglobin 8.8L, Hematocrit 25.2L , Mean Corpuscular Volume 93, Mean Corpuscular Hemoglobin 32.7H, Mean Corpuscular Hemoglobin Concent 35.0, Red Cell Distribution Width 17.1H, Platelet Count 139L, Mean Platelet Volume 4.9L, Neutrophils (%) (Auto) 68.7, Lymphocytes (%) (Auto) 15.4L, Monocytes (%) (Auto) 9.3, Eosinophils (%) (Auto) 5.9H, Basophils (%) (Auto) 0.7, Sodium Level 144, Potassium Level 4.7, Chloride Level 111H, Carbon Dioxide Level 23, Anion Gap 10, Blood Urea Nitrogen 104H, Creatinine 3.2H, Estimat Glomerular Filtration Rate 19.5, Glucose Level 139H, Uric Acid 8.7H, Calcium Level 8.4L, Phosphorus Level 5.0H, Magnesium Level 3.1H , Total Bilirubin 0.8, Aspartate Amino Transf (AST/SGOT) 48H, Alanine Aminotransferase (ALT/SGPT) 30, Alkaline Phosphatase 1106H, Pro-B-Type Natriuretic Peptide 81261T, Total Protein 4.8L, Albumin 1.5L, Globulin 3.3, Albumin/Globulin Ratio 0.5L Current Medications Medications (Trade) Dose Ordered Sig/Manuel Route PRN Reason Start Time Stop Time Status Last Admin Dose Admin Acetaminophen (Tylenol) 650 mg Q4H PRN ORAL fever (temp>100.5F) 02/08/18 18:47 03/07/18 18:46 Albuterol/ Ipratropium (Albuterol/ Ipratropium) 3 ml Q6H PRN HHN dyspnea 02/08/18 18:48 02/10/18 18:47 Amlodipine Besylate (Norvasc) 5 mg DAILY NG 02/09/18 09:00 03/10/18 08:59 02/10/18 09:50 Carvedilol (Coreg) 25 mg Q12HR NG 02/08/18 21:00 03/07/18 20:59 02/10/18 09:50 Clonidine HCl (Catapres Tab) 0.1 mg Q4H PRN NG For High BP 160 and above 02/08/18 18:48 03/07/18 18:47 02/10/18 05:54 Dextrose (Dextrose 50%) 25 ml STAT PRN IV Hypoglycemia BS 60-69mg/dl 02/08/18 18:48 03/10/18 18:47 Dextrose (Dextrose 50%) 50 ml STAT PRN IV Hypoglycemia BS less than 60mg 02/08/18 18:48 03/10/18 18:47 Famotidine (Pepcid) 20 mg Q12HR GT 02/08/18 21:00 03/08/18 13:31 02/10/18 09:47 Heparin Sodium (Porcine) (Heparin 5000 units/ml) 5,000 units EVERY 12 HOURS SUBQ 02/08/18 21:00 03/07/18 20:59 02/10/18 09:52 Insulin Aspart (NovoLOG) EVERY 6 HOURS SUBQ 02/09/18 00:00 03/11/18 00:00 02/10/18 12:29 Morphine Sulfate (Morphine Sulfate) 1 mg Q4H PRN IVP For Pain 02/08/18 18:58 02/12/18 18:57 02/08/18 20:40 Olanzapine (ZyPREXA) 2.5 mg BEDTIME GT 02/08/18 21:00 03/08/18 22:12 02/09/18 21:03 Ondansetron HCl (Zofran) 4 mg Q6H PRN IVP Nausea & Vomiting 02/08/18 18:51 03/07/18 18:50 Polyethylene Glycol (Miralax) 17 gm HSPRN PRN ORAL Constipation 02/08/18 21:00 03/10/18 20:59 02/09/18 02:25 Prednisone (predniSONE) 5 mg DAILY ORAL 02/09/18 09:00 03/08/18 09:59 02/10/18 09:47 Sevelamer Carbonate (Renvela) 800 mg THREE TIMES A DAY NG 02/09/18 09:00 03/09/18 17:59 02/10/18 09:46 Tacrolimus (Prograf) 0.5 mg EVERY 12 HOURS ORAL 02/08/18 21:00 03/07/18 20:59 02/10/18 09:47 Zolpidem Tartrate (Ambien) 5 mg HSPRN PRN ORAL Insomnia 02/08/18 21:00 02/15/18 20:59 02/09/18 21:02 [facility]Michelle NP February 10, 2018 13:10
--- NOTE | 2018-02-10 15:41 | Neurology Progress Note ---
Interim History Interim History Interim History Mr. Bullard is awake today. He however is not completely alert. He is able to follow a few simple commands. He is able to say a few words. He however is still unable to communicate in a meaningful manner. He continues to be generally weak. His PEG is functioning well. He is generally better today. Review of Systems Neuro Review of Systems Unable to obtain. Objective Physical Exam Last Vital Signs Date Time Temp Pulse Resp B/P (MAP) Pulse Ox O2 Delivery O2 Flow Rate FiO2 02/10/18 11:56 98.0 82 20 155/82 98 98.0 02/10/18 11:56 Room Air 02/10/18 08:17 21 02/08/18 16:00 3.0 Laboratory Tests Test 02/10/18 08:50 White Blood Count 5.6 K/UL (4.8-10.8) Red Blood Count 2.70 M/UL (4.70-6.10) L Hemoglobin 8.8 G/DL (14.2-18.0) L Hematocrit 25.2 % (42.0-52.0) L Mean Corpuscular Volume 93 FL (80-99) Mean Corpuscular Hemoglobin 32.7 PG (27.0-31.0) H Mean Corpuscular Hemoglobin Concent 35.0 G/DL (32.0-36.0) Red Cell Distribution Width 17.1 % (11.6-14.8) H Platelet Count 139 K/UL (150-450) L Mean Platelet Volume 4.9 FL (6.5-10.1) L Neutrophils (%) (Auto) 68.7 % (45.0-75.0) Lymphocytes (%) (Auto) 15.4 % (20.0-45.0) L Monocytes (%) (Auto) 9.3 % (1.0-10.0) Eosinophils (%) (Auto) 5.9 % (0.0-3.0) H Basophils (%) (Auto) 0.7 % (0.0-2.0) Sodium Level 144 MMOL/L (136-145) Potassium Level 4.7 MMOL/L (3.5-5.1) Chloride Level 111 MMOL/L (98-107) H Carbon Dioxide Level 23 MMOL/L (21-32) Anion Gap 10 mmol/L (5-15) Blood Urea Nitrogen 104 mg/dL (7-18) H Creatinine 3.2 MG/DL (0.55-1.30) H Estimat Glomerular Filtration Rate 19.5 mL/min (>60) Glucose Level 139 MG/DL (74-106) H Uric Acid 8.7 MG/DL (2.6-7.2) H Calcium Level 8.4 MG/DL (8.5-10.1) L Phosphorus Level 5.0 MG/DL (2.5-4.9) H Magnesium Level 3.1 MG/DL (1.8-2.4) H Total Bilirubin 0.8 MG/DL (0.2-1.0) Aspartate Amino Transf (AST/SGOT) 48 U/L (15-37) H Alanine Aminotransferase (ALT/SGPT) 30 U/L (12-78) Alkaline Phosphatase 1106 U/L (46-116) H Pro-B-Type Natriuretic Peptide 28127 pg/mL (0-125) H Total Protein 4.8 G/DL (6.4-8.2) L Albumin 1.5 G/DL (3.4-5.0) L Globulin 3.3 g/dL Albumin/Globulin Ratio 0.5 (1.0-2.7) L Neurologic Exam Objective PHYSICAL EXAMINATION: GENERAL: He is a well-developed and well-nourished gentleman, lying in bed, in no acute distress. HEAD: Normocephalic and atraumatic. EENT: Examination benign. NECK: No neck rigidity was observed. NEUROLOGIC EXAMINATION: MENTAL STATUS EXAMINATION: He was awake but not completely alert. He was oriented to self only. He was minimally verbal. He was able to follow a few simple commands. Further mental status testing was impossible. SPEECH: He was dysarthric. LANGUAGE : Could not be tested. CRANIAL NERVE EXAMINATION: II: He did not blink to threat on the right side, but did blink to threat on the left side indicating possible visual loss in the right eye. He was able to count fingers. III, IV & : The external ocular movements were present on oculocephalic maneuvers. The pupils were 3 mm in diameter and nonreactive to light. V: He had normal facial sensations, and the temporales, masseters, and pterygoids functioned normally. VII: He had normal facial expressions and no facial asymmetry. VIII: He seemed to be able to hear well and had no nystagmus. IX: The palate moved symmetrically on phonation . X: He had no hoarseness of voice. XI: The sternocleidomastoids and trapezii functioned normally. XII: The tongue was in the midline without any fasciculations or atrophy. MOTOR SYSTEM: The tone was normal in all four extremities. Examination of muscle mass revealed no focal wasting. He did however have generalized muscle wasting. Examination of power was impossible to perform on individual muscle groups. He did move all four extremities minimally on command. He could not cooperate for further motor testing. SENSORY EXAMINATION: He responded to deep pain in all four extremities in a relatively symmetric manner. REFLEXES: Trace+ and bilaterally symmetrical at the biceps, triceps, brachioradialis, and knees and 0 at both ankles. The plantar responses were flexor bilaterally. COORDINATION, STANCE & GAIT: Could not be tested. Impression/Recommendations Diagnostic Impression 1. Mr. Figueroa Bullard is a 68-year-old, right-handed, gentleman, who does have a past history of hypertension, diabetes mellitus, congestive heart failure , end-stage renal disease, on hemodialysis, a kidney transplant, and progressive gait problems leading to falls, who has [facility] living [facility] a [facility] for the last two weeks or so. He was hospitalized on 02/05/2018 when he was found to be poorly responsive. It was assumed that he may have had a seizure. 2. He is awake today. He however is not completely alert. He is able to follow a few simple commands. He is able to say a few words. He however is still unable to communicate in a meaningful manner. He continues to be generally weak. His PEG is functioning well. He is generally better today. 3. On neurological examination, at this time, he is awake but not completely alert. He is more responsive and more verbal. He continues to be cognitively impoverished and exhibits global cerebral dysfunction. He also exhibits a quadriparesis with minimal movements in all four extremities on command. His deep tendon reflexes are globally diminished. He is less encephalopathic today. 4. Laboratory data revealed that he is anemic with a hemoglobin of 9.8. His platelet count is low at 133,000. His chemistry panel reveals a BUN elevated at 80, creatinine elevated at 2.9, glucose elevated at 121, elevated GTT, AST, and alkaline phosphate. BNP elevated to 21,546. Hypoalbuminemia with an albumin of 1.6. TSH elevated at 4.63. A normal B12 and folate level. The urinalysis reveals 1+ leukocyte esterase, 5-10 red blood cells, and 2-4 white blood cells per high-power field. 5. The EEG reveals a moderately severe toxic/metabolic encephalopathy. No inter- ictal discharges were seen. 6. The MRI of the brain revealed "mild atrophy and evidence of chronic small vessel disease involving white matter tracts, but no acute pathology." 7. The patient's history and neurological examination are most compatible with a significant toxic metabolic encephalopathy due to multiple toxic metabolic brain insults. The history of a seizure is suspect. He is less encephalopathic. Recommendations 1. Continue present management. 2. No need for antiseizure medicine. 3. Attempts should be made to correct all the patient's toxic metabolic imbalances. 4. Observe closely. Juan Cortez M.D., M.S.P.H. JUAN CORTEZ February 10, 2018 15:41
[2018-02-11] VITALS: BP 153/79
[2018-02-11] MEDS: NovoLOG Insulin Flexpen SUBQ SCH ×4 (01:25→17:23)
[2018-02-11 04:00] VITALS: BP 156/83
[2018-02-11 08:00] VITALS: BP 158/78
[2018-02-11] MEDS: Heparin 5000 units/ml inj SUBQ SCH ×2 (09:00→21:03)
[2018-02-11] MEDS: Renvela 800mg Pkt NG SCH ×3 (09:42→17:17)
[2018-02-11] MEDS: Carvedilol 25mg Tab NG SCH ×2 (09:43→21:01)
--- NOTE | 2018-02-11 10:25 | Neurology Progress Note ---
Interim History Interim History Interim History Mr. Bullard tells me he feels "better." He however is still not completely alert. He is able to follow a few simple commands better. He is able to say a few more words. He is still unable to communicate in a meaningful manner. He continues to be generally weak. His PEG is functioning well. Review of Systems Neuro Review of Systems Unable to obtain. Objective Physical Exam Last Vital Signs Date Time Temp Pulse Resp B/P (MAP) Pulse Ox O2 Delivery O2 Flow Rate FiO2 02/11/18 09:44 86 158/78 02/11/18 04:00 98.4 18 96 Room Air 98.4 02/10/18 19:40 21 02/08/18 16:00 3.0 Neurologic Exam Objective PHYSICAL EXAMINATION: GENERAL: He is a well-developed and well-nourished gentleman, lying in bed, in no acute distress. HEAD: Normocephalic and atraumatic. EENT: Examination benign. NECK: No neck rigidity was observed. NEUROLOGIC EXAMINATION: MENTAL STATUS EXAMINATION: He was awake but not completely alert. He was oriented to self only. He was minimally more verbal. He was able to follow a few simple commands. Further mental status testing was impossible. SPEECH: He was dysarthric. LANGUAGE : Could not be tested. CRANIAL NERVE EXAMINATION: II: He did not blink to threat on the right side, but did blink to threat on the left side indicating possible visual loss in the right eye. He was able to count fingers. III, IV & : The external ocular movements were present on oculocephalic maneuvers. The pupils were 3 mm in diameter and nonreactive to light. V: He had normal facial sensations, and the temporales, masseters, and pterygoids functioned normally. VII: He had normal facial expressions and no facial asymmetry. VIII: He seemed to be able to hear well and had no nystagmus. IX: The palate moved symmetrically on phonation . X: He had no hoarseness of voice. XI: The sternocleidomastoids and trapezii functioned normally. XII: The tongue was in the midline without any fasciculations or atrophy. MOTOR SYSTEM: The tone was normal in all four extremities. Examination of muscle mass revealed no focal wasting. He did however have generalized muscle wasting. Examination of power was impossible to perform on individual muscle groups. He did move all four extremities minimally on command. He could not cooperate for further motor testing. SENSORY EXAMINATION: He responded to deep pain in all four extremities in a relatively symmetric manner. REFLEXES: Trace+ and bilaterally symmetrical at the biceps, triceps, brachioradialis, and knees and 0 at both ankles. The plantar responses were flexor bilaterally. COORDINATION, STANCE & GAIT: Could not be tested. Impression/Recommendations Diagnostic Impression 1. Mr. Figueroa Bullard is a 68-year-old, right-handed, gentleman, who does have a past history of hypertension, diabetes mellitus, congestive heart failure , end-stage renal disease, on hemodialysis, a kidney transplant, and progressive gait problems leading to falls, who has been living in a half-way for the last two weeks or so. He was hospitalized on 02/05/2018 when he was found to be poorly responsive. It was assumed that he may have had a seizure. 2. He continues to be awake. He however is not completely alert. He is able to follow a few simple commands. He is able to say a few words. He however is still unable to communicate in a meaningful manner. He continues to be generally weak. His PEG is functioning well. He is generally better today. 3. On neurological examination, at this time, he is awake but not completely alert. He is more responsive and more verbal. He continues to be cognitively impoverished and exhibits global cerebral dysfunction. He also exhibits a quadriparesis with minimal movements in all four extremities on command. His deep tendon reflexes are globally diminished. He is less encephalopathic today. 4. Laboratory data revealed that he is anemic with a hemoglobin of 9.8. His platelet count is low at 133,000. His chemistry panel reveals a BUN elevated at 80, creatinine elevated at 2.9, glucose elevated at 121, elevated GTT, AST, and alkaline phosphate. BNP elevated to 21,546. Hypoalbuminemia with an albumin of 1.6. TSH elevated at 4.63. A normal B12 and folate level. The urinalysis reveals 1+ leukocyte esterase, 5-10 red blood cells, and 2-4 white blood cells per high-power field. 5. The EEG reveals a moderately severe toxic/metabolic encephalopathy. No inter- ictal discharges were seen. 6. The MRI of the brain revealed "mild atrophy and evidence of chronic small vessel disease involving white matter tracts, but no acute pathology." 7. The patient's history and neurological examination are most compatible with a significant toxic metabolic encephalopathy due to multiple toxic metabolic brain insults. The history of a seizure is suspect. He is still encephalopathic - but improving. Recommendations 1. Continue present management. 2. No need for antiseizure medicine. 3. Attempts should be made to correct all the patient's toxic metabolic imbalances. 4. Observe closely. Juan Cortez M.D., M.S.P.Jason. JUAN CORTEZ February 11, 2018 10:25
--- NOTE | 2018-02-11 10:42 | Pulmonology Progress Note ---
Assessment/Plan Assessment/Plan ASSESSMENT acute toxic metabolic encephalopathy secondary to multiply brain insults chronic renal insufficiency history of kidney transplant status post percutaneous endoscopic gastrostomy tube placement on 02/08/18 Diabetes mellitus Nephrotic syndrome Hypertension Severe protein calorie malnutrition Anemia of chronic kidney disease PLAN OF CARE Med Surg floor failed swallow eval, failure to thrive status post PEG placement 02/08/18 abdominal binder GI closely follows Tube feeding started as per on dietary commendations with strict aspiration and reflux precautions Counseling Case Manager follows monitor renal parameters and electrolytes , avoid nephrotoxic 24 hours urine with more than 5 gram of protein, c/w nephrotic syndrome continue prednisone and Prograf Neurologist follows no need for antiseizure medications CT of the head no acute intracranial pathology MRI of the brain no acute intracranial pathology labs ok , ammonia down to normal ( from initial elevated) Echocardiogram with ejection fraction of 60% and right ventricular systolic pressure of 29 venous duplex LUE revealed no evidence of DVT DVT/ GI prophayxlis anemia workup consistent with anemia of chronic disease , monitor hemoglobin, hematocrit with goal to keep hemoglobin above 8 blood pressure management with calcium channel melanie and beta melanie , optimize as needed supplemental oxygen, pulmonary toilet as needed ultrasound of abdomen noted nutritional recommendations implemented in plan of care blood sugar management with sliding scale insulin psychiatrist closely follows per psychiatrist patient lacks capacity to make informed decision patient started on Zyprexa dc plan to SNF for am case discussed and evaluated by supervising physician Subjective Allergies: Coded Allergies: No Known Allergies (Unverified , 02/05/18) Subjective no signs of distress tolerates GT feeding Objective Last 24 Hour Vital Signs Date Time Temp Pulse Resp B/P (MAP) Pulse Ox O2 Delivery O2 Flow Rate FiO2 02/11/18 09:44 86 158/78 02/11/18 09:43 86 158/78 02/11/18 08:00 97.5 86 20 158/78 97 Room Air 97.5 02/11/18 04:00 98.4 89 18 156/83 96 Room Air 98.4 02/11/18 00:00 98.1 83 19 153/79 96 Room Air 98.1 02/10/18 20:55 88 154/101 02/10/18 20:00 98.4 88 20 154/101 96 Room Air 98.4 02/10/18 19:40 83 20 Room Air 21 02/10/18 16:10 98.4 83 20 156/84 97 98.4 02/10/18 16:10 Room Air 02/10/18 11:56 98.0 82 20 155/82 98 98.0 02/10/18 11:56 Room Air Intake and Output 02/10/18 02/11/18 19:00 07:00 Intake Total 470 ml 385 ml Output Total 250 ml 400 ml Balance 220 ml -15 ml Free Water 50 ml Tube Feeding 420 ml 385 ml Output Urine Total 250 ml 400 ml Objective General Appearance: no acute distress, awake, HEENT: normocephalic, atraumatic, dysarthric, minimally verbal Respiratory/Chest: no respiratory distress, no accessory muscle use, decreased breath sounds Cardiovascular: normal peripheral pulses, normal rate Abdomen: soft, non tender, non distended, G tube with TF Extremities: pedal pulses normal Neurologic/Psychiatric: abnormal gait, increased tone x 4 extremities Current Medications Medications (Trade) Dose Ordered Sig/Manuel Route PRN Reason Start Time Stop Time Status Last Admin Dose Admin Acetaminophen (Tylenol) 650 mg Q4H PRN ORAL fever (temp>100.5F) 02/08/18 18:47 03/07/18 18:46 Amlodipine Besylate (Norvasc) 5 mg DAILY NG 02/09/18 09:00 03/10/18 08:59 02/11/18 09:44 Carvedilol (Coreg) 25 mg Q12HR NG 02/08/18 21:00 03/07/18 20:59 02/11/18 09:43 Clonidine HCl (Catapres Tab) 0.1 mg Q4H PRN NG For High BP 160 and above 02/08/18 18:48 03/07/18 18:47 02/10/18 05:54 Dextrose (Dextrose 50%) 25 ml STAT PRN IV Hypoglycemia BS 60-69mg/dl 02/08/18 18:48 03/10/18 18:47 Dextrose (Dextrose 50%) 50 ml STAT PRN IV Hypoglycemia BS less than 60mg 02/08/18 18:48 03/10/18 18:47 Famotidine (Pepcid) 20 mg Q12HR GT 02/08/18 21:00 03/08/18 13:31 02/11/18 09:42 Heparin Sodium (Porcine) (Heparin 5000 units/ml) 5,000 units EVERY 12 HOURS SUBQ 02/08/18 21:00 03/07/18 20:59 02/10/18 20:57 Insulin Aspart (NovoLOG) EVERY 6 HOURS SUBQ 02/09/18 00:00 03/11/18 00:00 02/11/18 06:47 Morphine Sulfate (Morphine Sulfate) 1 mg Q4H PRN IVP For Pain 02/08/18 18:58 02/12/18 18:57 02/08/18 20:40 Olanzapine (ZyPREXA) 2.5 mg BEDTIME GT 02/08/18 21:00 03/08/18 22:12 02/10/18 20:55 Ondansetron HCl (Zofran) 4 mg Q6H PRN IVP Nausea & Vomiting 02/08/18 18:51 03/07/18 18:50 Polyethylene Glycol (Miralax) 17 gm HSPRN PRN ORAL Constipation 02/08/18 21:00 03/10/18 20:59 02/09/18 02:25 Prednisone (predniSONE) 5 mg DAILY ORAL 02/09/18 09:00 03/08/18 09:59 02/11/18 09:43 Sevelamer Carbonate (Renvela) 800 mg THREE TIMES A DAY NG 02/09/18 09:00 03/09/18 17:59 02/11/18 09:42 Tacrolimus (Prograf) 0.5 mg EVERY 12 HOURS ORAL 02/08/18 21:00 03/07/18 20:59 02/11/18 09:44 Zolpidem Tartrate (Ambien) 5 mg HSPRN PRN ORAL Insomnia 02/08/18 21:00 02/15/18 20:59 02/09/18 21:02 Michelle Thomas NP (Vanchtein) February 11, 2018 10:42
[2018-02-11] MEDS ORDERED: Morphine Sulfate 4mg/ml Inj IVP PRN (10:58)
[2018-02-11 11:25] LABS: BASOPHILS % (AUTO) 0.7 % (0.0-2.0); EOSINOPHILS % (AUTO) 7.3 % (0.0-3.0); HEMATOCRIT 26.3 % (42.0-52.0); HEMOGLOBIN 8.6 G/DL (14.2-18.0); LYMPHOCYTES % (AUTO) 16.9 % (20.0-45.0); MEAN CORPUSCULAR VOLUME 95 FL (80-99); MONOCYTES % (AUTO) 9.1 % (1.0-10.0); PLATELET COUNT 149 K/UL (150-450); RED BLOOD COUNT 2.77 M/UL (4.70-6.10); RED CELL DISTRIBUTION WIDTH 17.3 % (11.6-14.8); WHITE BLOOD COUNT 5.2 K/UL (4.8-10.8)
--- NOTE | 2018-02-11 11:31 | Nephrology Progress Note ---
Assessment/Plan Problem List: (1) Acute encephalopathy (2) Chronic kidney insufficiency (3) History of hypertension (4) Nephrotic syndrome (5) Severe malnutrition Assessment worsenning Anemia Renal failure- Appears mainly prerenal, likely with underlying renal worsened previous kidney transplant acute encephalopathy previous multiple transfusions hypoalbuminemia 4+ proteinuria left arm swelling adjust bp meds Plan Plan: Cr 3.2 yesterday- today pending abdominal JAYE : results noted change feeding to Nepro PEG in 2D Echo Noted Avoid nephrotoxics monitor renal parameters venous duplex left arm Neg 24 h urine for total Protein over 5 grams Subjective ROS Limited/Unobtainable: No Constitutional: Reports: malaise Objective Objective Last 24 Hour Vital Signs Date Time Temp Pulse Resp B/P (MAP) Pulse Ox O2 Delivery O2 Flow Rate FiO2 02/11/18 09:44 86 158/78 02/11/18 09:43 86 158/78 02/11/18 08:00 97.5 86 20 158/78 97 Room Air 97.5 02/11/18 04:00 98.4 89 18 156/83 96 Room Air 98.4 02/11/18 00:00 98.1 83 19 153/79 96 Room Air 98.1 02/10/18 20:55 88 154/101 02/10/18 20:00 98.4 88 20 154/101 96 Room Air 98.4 02/10/18 19:40 83 20 Room Air 21 02/10/18 16:10 98.4 83 20 156/84 97 98.4 02/10/18 16:10 Room Air 02/10/18 11:56 98.0 82 20 155/82 98 98.0 02/10/18 11:56 Room Air Intake and Output 02/10/18 02/11/18 19:00 07:00 Intake Total 470 ml 385 ml Output Total 250 ml 400 ml Balance 220 ml -15 ml Free Water 50 ml Tube Feeding 420 ml 385 ml Output Urine Total 250 ml 400 ml Laboratory Tests 02/11/18 10:08: White Blood Count 5.2, Red Blood Count 2.77L, Hemoglobin 8.6L, Hematocrit 26.3L , Mean Corpuscular Volume 95, Mean Corpuscular Hemoglobin 31.1H, Mean Corpuscular Hemoglobin Concent 32.8, Red Cell Distribution Width 17.3H, Platelet Count 149L, Mean Platelet Volume 4.7L, Neutrophils (%) (Auto) 66.0, Lymphocytes (%) (Auto) 16.9L, Monocytes (%) (Auto) 9.1, Eosinophils (%) (Auto) 7.3H, Basophils (%) (Auto) 0.7, Sodium Level [Pending], Potassium Level [Pending ], Chloride Level [Pending], Carbon Dioxide Level [Pending], Blood Urea Nitrogen [Pending], Creatinine [Pending], Estimat Glomerular Filtration Rate [ Pending], Glucose Level [Pending], Calcium Level [Pending], Ammonia [Pending] Height (Feet): 5 Height (Inches): 5.00 Weight (Pounds): 145 General Appearance: no apparent distress Objective no change MELISA HOYT February 11, 2018 11:31
[2018-02-11 11:36] LABS: ANION GAP 6 mmol/L (5-15); BLOOD UREA NITROGEN 111 mg/dL (7-18); CALCIUM 8.7 MG/DL (8.5-10.1); CARBON DIOXIDE 28 MMOL/L (21-32); CHLORIDE 111 MMOL/L (98-107); CREATININE 3.3 MG/DL (0.55-1.30); POTASSIUM 4.6 MMOL/L (3.5-5.1); SODIUM 144 MMOL/L (136-145)
[2018-02-11 11:38] LABS: AMMONIA 31 umol/L (11-32)
[2018-02-11 12:00] VITALS: BP 151/75
[2018-02-11 16:00] VITALS: BP 151/93
[2018-02-11] MEDS: Miralax 17gm pkt ORAL PRN (18:40)
[2018-02-11 19:57] VITALS: BP 151/84
[2018-02-12] VITALS: BP 159/84
[2018-02-12] MEDS: NovoLOG Insulin Flexpen SUBQ SCH ×5 (00:12→23:43)
[2018-02-12 04:00] VITALS: BP 161/85
[2018-02-12 08:00] VITALS: BP 161/83
[2018-02-12] MEDS: Heparin 5000 units/ml inj SUBQ SCH ×2 (09:00→21:11)
[2018-02-12] MEDS: Renvela 800mg Pkt NG SCH ×3 (09:22→17:30)
[2018-02-12] MEDS: Carvedilol 25mg Tab NG SCH ×2 (09:23→21:10)
--- NOTE | 2018-02-12 09:59 | Diagnostic Imaging Report ---
APPROVED REPORT CPT Code: 54792 Present Symptoms Comments: Swelling BILATERAL: Imaging reveals a patent deep venous system bilaterally. There is no evidence of thrombus within the femoral, popliteal or tibial segments. The greater saphenous veins are also within normal limits. Doppler indicates normal spontaneous flow within these segments.
--- NOTE | 2018-02-12 10:10 | Diagnostic Imaging Report ---
APPROVED REPORT CPT Code: 24054 Present Symptoms Comments: Left forearm swelling LEFT UPPER EXTREMITY (Deep venous system): Imaging reveals patency of the internal jugular, subclavian, axillary and brachial veins. Doppler indicates normal spontaneous flow within these venous segments. Imaging also reveals a patent stent in the subclavian vein. The cephalic vein is thrombosed. The basilic vein is patent. 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 There is no evidence of acute deep vein thrombosis.
--- NOTE | 2018-02-12 10:59 | GI Progress Note ---
Assessment/Plan Problems: (1) Severe malnutrition ICD Codes: E43 - Unspecified severe protein-calorie malnutrition SNOMED: 04460326 (2) Encounter for PEG (percutaneous endoscopic gastrostomy) ICD Codes: Z43.1 - Encounter for attention to gastrostomy SNOMED: 687389445, 335691782 (3) Nephrotic syndrome ICD Codes: N04.9 - Nephrotic syndrome with unspecified morphologic changes SNOMED: 11637100 (4) Dysphagia ICD Codes: R13.10 - Dysphagia, unspecified SNOMED: 51866177, 017962916 (5) Acute encephalopathy ICD Codes: G93.40 - Encephalopathy, unspecified SNOMED: 18918288, 788433372 (6) Diabetes mellitus ICD Codes: E11.9 - Type 2 diabetes mellitus without complications SNOMED: 42919844 Status: stable Status Narrative Discussed with Dr. Watson. Assessment/Plan SUMMARY OF FINDINGS: Status post successful PEG placement. RECOMMENDATIONS: okay for DC per GI standpoint 1. Abdominal binder. 2. Elevate the head of the bed at all times. 3. G-tube flush. 4. G-tube care. 5. Start tube feeding. fu labs okay for DC per GI standpoint Subjective Subjective limited Objective Last 24 Hour Vital Signs Date Time Temp Pulse Resp B/P (MAP) Pulse Ox O2 Delivery O2 Flow Rate FiO2 02/12/18 09:23 81 161/83 02/12/18 09:22 81 161/83 02/12/18 08:00 97.2 81 21 161/83 98 97.2 02/12/18 04:00 97.9 83 19 161/85 97 97.9 02/12/18 00:00 97.8 79 18 159/84 97 97.8 02/11/18 21:01 84 151/84 02/11/18 19:57 97.6 84 19 151/84 96 97.6 02/11/18 19:30 84 20 Room Air 21 02/11/18 17:17 88 151/93 02/11/18 16:00 97.7 88 18 151/93 98 Room Air 97.7 02/11/18 12:00 97.4 79 20 151/75 97 Room Air 97.4 Intake and Output 02/11/18 02/12/18 19:00 07:00 Intake Total 35 ml 385 ml Output Total 300 ml Balance -265 ml 385 ml Tube Feeding 35 ml 385 ml Output Urine Total 300 ml Height (Feet): 5 Height (Inches): 5.00 Weight (Pounds): 145 General Appearance: WD/WN, no apparent distress, alert Cardiovascular: normal rate Respiratory/Chest: normal breath sounds, no respiratory distress Abdominal Exam: normal bowel sounds, non tender, soft, GT site - c/d/i Extremities: non-tender Jaja Figueredo N.P. February 12, 2018 10:59
[2018-02-12 12:00] VITALS: BP 163/73
--- NOTE | 2018-02-12 12:32 | Infectious Diseases Prog Note ---
Assessment/Plan Assessment/Plan Assessment: Acute encephalopathy- ?related to pain meds in the setting of renal dysfunction - r/o intracranial pathology- no signs or symptoms of infectious process -Brain MRI: No acute intracranial findings. Mild atrophy and evidence of chronic small vessel disease involving white matter tracts. -CT head: No evidence of acute intracranial hemorrhage, mass effect, midline shift or cortical edema. MRI may be obtained for more sensitive evaluation as clinically indicated. Atrophy and nonspecific periventricular hypoattenuation suggestive of chronic ischemic microvascular changes. Intracranial atherosclerosis. Hypothermia, resolved -no leukocytosis -u/a no pyuria -CXR: Cardiomegaly with interstitial opacification/edema, small left/trace right pleural effusions and left basilar atelectasis/consolidation. Findings may be related to CHF/fluid overload. Superimposed pneumonia should be excluded clinically. -Bcx NTD s/p PEG 02/08 Very elevated ALP/GGT- ?etiology (normal ALT, AST, Tbili) -abd US: Evaluation limited due to overlying bandages and overlying bowel gas. The pancreas and portions of the abdominal aorta are not visualized. The gallbladder is poorly evaluated as well. The presence of a gallbladder pathology is not entirely excluded. No definite focal hepatic mass lesion appreciated. Evidence of left lower quadrant renal transplant. [place] kidneys not imaged. Borderline splenomegaly. Left pleural effusion partially visualized. Neck pain ?Seizure episode AI, worsening ESRD s/p kidney transplant about 3 years ago DM2 HTN Plan: -Continue to monitor off abx -02/05 Vanco and Ceftriaxone x1 -f/u cx -Monitor CBC/BMP, temperatures -aspiration precautions -Neuro f/u -PEG care -wound care/prevention per hosp protocol -xray cervical spine due to neck pain; further w/u per primary Thank you for this consultation. Will continue to follow along with you. Discussed with RN. Subjective Allergies: Coded Allergies: No Known Allergies (Unverified , 02/05/18) Subjective afebrile no leukocytosis off abx Bcx Neg Objective Vital Signs Last 24 Hour Vital Signs Date Time Temp Pulse Resp B/P (MAP) Pulse Ox O2 Delivery O2 Flow Rate FiO2 02/12/18 12:00 98.0 74 19 163/73 97 98.0 02/12/18 09:23 81 161/83 02/12/18 09:22 81 161/83 02/12/18 08:00 97.2 81 21 161/83 98 97.2 02/12/18 04:00 97.9 83 19 161/85 97 97.9 02/12/18 00:00 97.8 79 18 159/84 97 97.8 02/11/18 21:01 84 151/84 02/11/18 19:57 97.6 84 19 151/84 96 97.6 02/11/18 19:30 84 20 Room Air 21 02/11/18 17:17 88 151/93 02/11/18 16:00 97.7 88 18 151/93 98 Room Air 97.7 Height (Feet): 5 Height (Inches): 5.00 Weight (Pounds): 145 Objective General Appearance: WD/WN, no apparent distress Lines, tubes and drains: peripheral HEENT: normocephalic, atraumatic Neck: non-tender, normal alignment Respiratory/Chest: chest wall non-tender, lungs clear, normal breath sounds Cardiovascular/Chest: normal rate Abdomen: normal bowel sounds, non tender; s/p PEG, abdominal binder in place Extremities: trace edema, bruises, ecchymosis Current Medications Medications (Trade) Dose Ordered Sig/Manuel Route PRN Reason Start Time Stop Time Status Last Admin Dose Admin Acetaminophen (Tylenol) 650 mg Q4H PRN ORAL fever (temp>100.5F) 02/08/18 18:47 03/07/18 18:46 Amlodipine Besylate (Norvasc) 5 mg BID NG 02/11/18 18:00 03/10/18 08:59 02/12/18 09:22 Carvedilol (Coreg) 25 mg Q12HR NG 02/08/18 21:00 03/07/18 20:59 02/12/18 09:23 Clonidine HCl (Catapres Tab) 0.1 mg Q4H PRN NG For High BP 160 and above 02/08/18 18:48 03/07/18 18:47 02/10/18 05:54 Dextrose (Dextrose 50%) 25 ml STAT PRN IV Hypoglycemia BS 60-69mg/dl 02/08/18 18:48 03/10/18 18:47 Dextrose (Dextrose 50%) 50 ml STAT PRN IV Hypoglycemia BS less than 60mg 02/08/18 18:48 03/10/18 18:47 Famotidine (Pepcid) 20 mg Q12HR GT 02/08/18 21:00 03/08/18 13:31 02/12/18 09:22 Heparin Sodium (Porcine) (Heparin 5000 units/ml) 5,000 units EVERY 12 HOURS SUBQ 02/08/18 21:00 03/07/18 20:59 02/11/18 21:03 Insulin Aspart (NovoLOG) EVERY 6 HOURS SUBQ 02/09/18 00:00 03/11/18 00:00 02/12/18 12:10 Morphine Sulfate (Morphine Sulfate) 1 mg Q4H PRN IVP For Pain 02/11/18 10:58 02/15/18 10:57 Olanzapine (ZyPREXA) 2.5 mg BEDTIME GT 02/08/18 21:00 03/08/18 22:12 02/11/18 21:01 Ondansetron HCl (Zofran) 4 mg Q6H PRN IVP Nausea & Vomiting 02/08/18 18:51 03/07/18 18:50 Polyethylene Glycol (Miralax) 17 gm HSPRN PRN ORAL Constipation 02/08/18 21:00 03/10/18 20:59 02/11/18 18:40 Prednisone (predniSONE) 5 mg DAILY ORAL 02/09/18 09:00 03/08/18 09:59 02/12/18 09:22 Sevelamer Carbonate (Renvela) 800 mg THREE TIMES A DAY NG 02/09/18 09:00 03/09/18 17:59 02/12/18 09:22 Tacrolimus (Prograf) 0.5 mg EVERY 12 HOURS ORAL 02/08/18 21:00 03/07/18 20:59 02/12/18 09:25 Zolpidem Tartrate (Ambien) 5 mg HSPRN PRN ORAL Insomnia 02/08/18 21:00 02/15/18 20:59 02/09/18 21:02 Tia Ortega M.D. February 12, 2018 12:32
--- NOTE | 2018-02-12 15:07 | Nephrology Progress Note ---
Assessment/Plan Problem List: (1) Acute encephalopathy (2) Chronic kidney insufficiency (3) History of hypertension (4) Nephrotic syndrome (5) Severe malnutrition Assessment worsenning Anemia Renal failure- Appears mainly prerenal, likely with underlying renal worsened previous kidney transplant acute encephalopathy previous multiple transfusions hypoalbuminemia 4+ proteinuria left arm swelling adjust bp meds Plan Plan: Cr 3.3 abdominal JAYE : results noted change feeding to Nepro PEG in 2D Echo Noted Avoid nephrotoxics monitor renal parameters venous duplex left arm Neg 24 h urine for total Protein over 5 grams Subjective ROS Limited/Unobtainable: No Objective Objective Last 24 Hour Vital Signs Date Time Temp Pulse Resp B/P (MAP) Pulse Ox O2 Delivery O2 Flow Rate FiO2 02/12/18 12:00 98.0 74 19 163/73 97 98.0 02/12/18 09:36 98 16 Room Air 21 02/12/18 09:23 81 161/83 02/12/18 09:22 81 161/83 02/12/18 08:00 97.2 81 21 161/83 98 97.2 02/12/18 04:00 97.9 83 19 161/85 97 97.9 02/12/18 00:00 97.8 79 18 159/84 97 97.8 02/11/18 21:01 84 151/84 02/11/18 19:57 97.6 84 19 151/84 96 97.6 02/11/18 19:30 84 20 Room Air 21 02/11/18 17:17 88 151/93 02/11/18 16:00 97.7 88 18 151/93 98 Room Air 97.7 Intake and Output 02/11/18 02/12/18 19:00 07:00 Intake Total 35 ml 385 ml Output Total 300 ml Balance -265 ml 385 ml Tube Feeding 35 ml 385 ml Output Urine Total 300 ml Height (Feet): 5 Height (Inches): 5.00 Weight (Pounds): 145 General Appearance: no apparent distress Respiratory/Chest: decreased breath sounds Abdomen: soft Objective no change MELISA HOYT February 12, 2018 15:07
--- NOTE | 2018-02-12 15:54 | Neurology Progress Note ---
Interim History Interim History Interim History Mr. Bullard tells me he feels "better" - in Hebrew. He is still not completely alert. He is able to follow a few simple commands better. He is able to say a few more words. He is still unable to communicate in a meaningful manner. He continues to be generally weak. His PEG is functioning well. He is still encephalopathic. Review of Systems Neuro Review of Systems Unable to obtain. Objective Physical Exam Last Vital Signs Date Time Temp Pulse Resp B/P (MAP) Pulse Ox O2 Delivery O2 Flow Rate FiO2 02/12/18 12:00 98.0 74 19 163/73 97 98.0 02/12/18 09:36 Room Air 21 02/08/18 16:00 3.0 Neurologic Exam Objective PHYSICAL EXAMINATION: GENERAL: He is a well-developed and well-nourished gentleman, lying in bed, in no acute distress. HEAD: Normocephalic and atraumatic. EENT: Examination benign. NECK: No neck rigidity was observed. NEUROLOGIC EXAMINATION: MENTAL STATUS EXAMINATION: He was awake but not completely alert. He was oriented to self only. He was minimally more verbal. He was able to follow a few simple commands. Further mental status testing was impossible. SPEECH: He was dysarthric. LANGUAGE : Could not be tested. CRANIAL NERVE EXAMINATION: II: He did not blink to threat on the right side, but did blink to threat on the left side indicating possible visual loss in the right eye. He was able to count fingers. III, IV & : The external ocular movements were present on oculocephalic maneuvers. The pupils were 3 mm in diameter and nonreactive to light. V: He had normal facial sensations, and the temporales, masseters, and pterygoids functioned normally. VII: He had normal facial expressions and no facial asymmetry. VIII: He seemed to be able to hear well and had no nystagmus. IX: The palate moved symmetrically on phonation . X: He had no hoarseness of voice. XI: The sternocleidomastoids and trapezii functioned normally. XII: The tongue was in the midline without any fasciculations or atrophy. MOTOR SYSTEM: The tone was normal in all four extremities. Examination of muscle mass revealed no focal wasting. He did however have generalized muscle wasting. Examination of power was impossible to perform on individual muscle groups. He did move all four extremities minimally on command. He could not cooperate for further motor testing. SENSORY EXAMINATION: He responded to deep pain in all four extremities in a relatively symmetric manner. REFLEXES: Trace+ and bilaterally symmetrical at the biceps, triceps, brachioradialis, and knees and 0 at both ankles. The plantar responses were flexor bilaterally. COORDINATION, STANCE & GAIT: Could not be tested. Impression/Recommendations Diagnostic Impression 1. Mr. Figueroa Bullard is a 68-year-old, right-handed, gentleman, who does have a past history of hypertension, diabetes mellitus, congestive heart failure , end-stage renal disease, on hemodialysis, a kidney transplant, and progressive gait problems leading to falls, who has been living in a half-way for the last two weeks or so. He was hospitalized on 02/05/2018 when he was found to be poorly responsive. It was assumed that he may have had a seizure. 2. He continues to be awake. He however is not completely alert. He is able to follow a few simple commands. He is able to say a few words. He however is still unable to communicate in a meaningful manner. He continues to be generally weak. His PEG is functioning well. He is generally better today. 3. On neurological examination, at this time, he is awake but not completely alert. He is more responsive and more verbal. He continues to be cognitively impoverished and exhibits global cerebral dysfunction. He also exhibits a quadriparesis with minimal movements in all four extremities on command. His deep tendon reflexes are globally diminished. He is still encephalopathic. 4. Laboratory data revealed that he is anemic with a hemoglobin of 9.8. His platelet count is low at 133,000. His chemistry panel reveals a BUN elevated at 80, creatinine elevated at 2.9, glucose elevated at 121, elevated GTT, AST, and alkaline phosphate. BNP elevated to 21,546. Hypoalbuminemia with an albumin of 1.6. TSH elevated at 4.63. A normal B12 and folate level. The urinalysis reveals 1+ leukocyte esterase, 5-10 red blood cells, and 2-4 white blood cells per high-power field. 5. The EEG reveals a moderately severe toxic/metabolic encephalopathy. No inter- ictal discharges were seen. 6. The MRI of the brain revealed "mild atrophy and evidence of chronic small vessel disease involving white matter tracts, but no acute pathology." 7. The patient's history and neurological examination are most compatible with a significant toxic metabolic encephalopathy due to multiple toxic metabolic brain insults. The history of a seizure is suspect. He is still encephalopathic - but has improved. Recommendations 1. Continue present management. 2. No need for antiseizure medicine. 3. Attempts should be made to correct all the patient's toxic metabolic imbalances. 4. Observe closely. Juan Cortez M.D., M.S.P.Jason. JUAN CORTEZ February 12, 2018 15:54
[2018-02-12 15:56] VITALS: BP 159/77
[2018-02-12 20:00] VITALS: BP 150/81
--- NOTE | 2018-02-12 20:47 | Pulmonology Progress Note ---
Assessment/Plan Problems: (1) Acute encephalopathy (2) Chronic kidney insufficiency (3) History of hypertension (4) Hx of kidney transplant (5) Diabetes mellitus Assessment/Plan Gtube done, tolerating well neuro evaluation appreciated family would agree with Feeding Tube if pt can't swallow siding scale monitor BP med/surg d/w pts son at the bed site dc planning Subjective ROS Limited/Unobtainable: No Constitutional: Reports: no symptoms HEENT: Repors: no symptoms Respiratory: Reports: no symptoms Allergies: Coded Allergies: No Known Allergies (Unverified , 02/05/18) Objective Last 24 Hour Vital Signs Date Time Temp Pulse Resp B/P (MAP) Pulse Ox O2 Delivery O2 Flow Rate FiO2 02/12/18 20:31 90 16 Room Air 21 02/12/18 17:30 74 159/77 02/12/18 15:56 96.8 74 20 159/77 100 96.8 02/12/18 15:56 Room Air 02/12/18 12:00 98.0 74 19 163/73 97 98.0 02/12/18 09:36 98 16 Room Air 21 02/12/18 09:23 81 161/83 02/12/18 09:22 81 161/83 02/12/18 08:00 97.2 81 21 161/83 98 97.2 02/12/18 04:00 97.9 83 19 161/85 97 97.9 02/12/18 00:00 97.8 79 18 159/84 97 97.8 02/11/18 21:01 84 151/84 Intake and Output 02/11/18 02/12/18 19:00 07:00 Intake Total 35 ml 385 ml Output Total 300 ml Balance -265 ml 385 ml Tube Feeding 35 ml 385 ml Output Urine Total 300 ml General Appearance: WD/WN HEENT: normocephalic, atraumatic Respiratory/Chest: chest wall non-tender, lungs clear Cardiovascular: normal peripheral pulses, normal rate Abdomen: normal bowel sounds, soft, non tender Laboratory Tests 02/12/18 15:40: C-Reactive Protein, Quantitative 11.3H Current Medications Medications (Trade) Dose Ordered Sig/Manuel Route PRN Reason Start Time Stop Time Status Last Admin Dose Admin Acetaminophen (Tylenol) 650 mg Q4H PRN ORAL fever (temp>100.5F) 02/08/18 18:47 03/07/18 18:46 Amlodipine Besylate (Norvasc) 5 mg BID NG 02/11/18 18:00 03/10/18 08:59 02/12/18 17:30 Carvedilol (Coreg) 25 mg Q12HR NG 02/08/18 21:00 03/07/18 20:59 02/12/18 09:23 Clonidine HCl (Catapres Tab) 0.1 mg Q4H PRN NG For High BP 160 and above 02/08/18 18:48 03/07/18 18:47 02/10/18 05:54 Dextrose (Dextrose 50%) 25 ml STAT PRN IV Hypoglycemia BS 60-69mg/dl 02/08/18 18:48 03/10/18 18:47 Dextrose (Dextrose 50%) 50 ml STAT PRN IV Hypoglycemia BS less than 60mg 02/08/18 18:48 03/10/18 18:47 Famotidine (Pepcid) 20 mg Q12HR GT 02/08/18 21:00 03/08/18 13:31 02/12/18 09:22 Heparin Sodium (Porcine) (Heparin 5000 units/ml) 5,000 units EVERY 12 HOURS SUBQ 02/08/18 21:00 03/07/18 20:59 02/11/18 21:03 Insulin Aspart (NovoLOG) EVERY 6 HOURS SUBQ 02/09/18 00:00 03/11/18 00:00 02/12/18 17:32 Morphine Sulfate (Morphine Sulfate) 1 mg Q4H PRN IVP For Pain 02/11/18 10:58 02/15/18 10:57 Olanzapine (ZyPREXA) 2.5 mg BEDTIME GT 02/08/18 21:00 03/08/18 22:12 02/11/18 21:01 Ondansetron HCl (Zofran) 4 mg Q6H PRN IVP Nausea & Vomiting 02/08/18 18:51 03/07/18 18:50 Polyethylene Glycol (Miralax) 17 gm HSPRN PRN ORAL Constipation 02/08/18 21:00 03/10/18 20:59 02/11/18 18:40 Prednisone (predniSONE) 5 mg DAILY ORAL 02/09/18 09:00 03/08/18 09:59 02/12/18 09:22 Sevelamer Carbonate (Renvela) 800 mg THREE TIMES A DAY NG 02/09/18 09:00 03/09/18 17:59 02/12/18 17:30 Tacrolimus (Prograf) 0.5 mg EVERY 12 HOURS ORAL 02/08/18 21:00 03/07/18 20:59 02/12/18 09:25 Zolpidem Tartrate (Ambien) 5 mg HSPRN PRN ORAL Insomnia 02/08/18 21:00 02/15/18 20:59 02/09/18 21:02 Le Bagley MD February 12, 2018 20:47
[2018-02-13] VITALS (7 sets, daily range): BP systolic 131–157; BP diastolic 54–80
--- NOTE | 2018-02-13 02:45 | Consultation ---
DATE OF CONSULTATION: 02/06/2018 NOTE: POOR AUDIO HEMATOLOGY/ONCOLOGY CONSULTATION CONSULTING PHYSICIAN: Andreas Freed M.D. REQUESTING PHYSICIAN: Le Bagley M.D. REASON FOR CONSULTATION: Evaluation of ongoing anemia. IDENTIFYING DATA: Dear Dr. Bagley, The patient is a pleasant 68-year-old male with past medical history significant for anemia; history of end-stage renal disease, status post transplant; diabetes mellitus; hypertension, at this time presents to the ER from retirement with altered mental status, found to have AI, hypoalbuminemia, proteinuria, possible seizure disorder as per report. Upon admission, the patient was at [facility] approximately a week ago anemia blood, of bleeding, and therefore, transferred from retirement a few days prior to admission complaining of back pain, given pain medications, became very drowsy, confused, apparently had a seizure, noted to be anemic. Hematology Service was consulted for further evaluation and treatment. PAST MEDICAL HISTORY: As noted above. PAST SURGICAL HISTORY: None reported. MEDICATIONS: Reviewed. Coreg, aspirin, Colace, esomeprazole, prednisone, tacrolimus, tamsulosin, tramadol, and vitamin B. FAMILY HISTORY: Noncontributory. SOCIAL HISTORY: No alcohol, tobacco, or illicit drug use. REVIEW OF SYSTEMS: CONSTITUTIONAL: No fever, chills, or night sweats. SKIN: No rashes, bumps, or itching. HEENT: No headache, hearing or vision changes. BREASTS: No lumps, pain, or discharge. PULMONARY: No cough, sputum, or shortness of breath. GASTROINTESTINAL: No nausea, vomiting, or diarrhea. GENITOURINARY: No dysuria, frequency, or urgency. MUSCULOSKELETAL: No joint swelling, muscle pain, or trauma. PHYSICAL EXAMINATION: VITAL SIGNS: Reviewed. GENERAL: No distress. PULMONARY: Decreased breath sounds. CARDIOVASCULAR: Regular rate. No S3 or S4. ABDOMEN: Soft, nontender, and nondistended. EXTREMITIES: No cyanosis, swelling, or edema noted. LABORATORY DATA: WBC 5.2, hemoglobin 8.6, and hematocrit 26, and platelet count 149,000. IMAGING: Duplex of lower extremities patent DVT system noted. reviewed. Borderline splenomegaly renal transplant DVT. ASSESSMENT AND RECOMMENDATIONS: 1. Anemia due to underlying chronic disease. Anemia workup has been reviewed. Ferritin of 1300, percent saturation 28, TIBC 105, magnesium of 3.4. Hemoglobin goal is above 7. 2. Anemia due to underlying kidney disease. Continue the patient on Procrit. The patient with a history of renal transplant. Okay to continue heparin subcutaneous. 3. Leukocytosis, likely secondary to underlying infection. Closely monitor for improvement. 4. Splenomegaly. 5. hepatitis panel . 6. Dysphagia, status post percutaneous endoscopic gastrostomy tube. 7. End-stage renal disease, on hemodialysis. 8. Diabetes mellitus. 9. Hypertension. I appreciate the consultation. Andreas Freed M.D. DR: Abdullahi JOB#: [id number] CC:
[2018-02-13] MEDS: NovoLOG Insulin Flexpen SUBQ SCH ×3 (05:35→18:19)
[2018-02-13] MEDS: Carvedilol 25mg Tab NG SCH (08:06)
[2018-02-13] MEDS: Renvela 800mg Pkt NG SCH ×2 (08:06→12:39)
[2018-02-13] MEDS: Heparin 5000 units/ml inj SUBQ SCH (08:10)
[2018-02-13 09:39] LABS: BASOPHILS % (AUTO) 0.6 % (0.0-2.0); EOSINOPHILS % (AUTO) 4.8 % (0.0-3.0); HEMATOCRIT 25.9 % (42.0-52.0); HEMOGLOBIN 8.8 G/DL (14.2-18.0); LYMPHOCYTES % (AUTO) 13.3 % (20.0-45.0); MEAN CORPUSCULAR VOLUME 95 FL (80-99); MONOCYTES % (AUTO) 6.9 % (1.0-10.0); NEUTROPHILS % (AUTO) 74.5 % (45.0-75.0); PLATELET COUNT 152 K/UL (150-450); RED BLOOD COUNT 2.72 M/UL (4.70-6.10); RED CELL DISTRIBUTION WIDTH 16.8 % (11.6-14.8); WHITE BLOOD COUNT 8.2 K/UL (4.8-10.8)
[2018-02-13 10:05] LABS: ALANINE AMINOTRANSFERASE 32 U/L (12-78); ALBUMIN 1.5 G/DL (3.4-5.0); ALBUMIN/GLOBULIN RATIO 0.4 (1.0-2.7); ALKALINE PHOSPHATASE 1035 U/L (46-116); ANION GAP 8 mmol/L (5-15); ASPARTATE AMINO TRANSFERASE 49 U/L (15-37); BLOOD UREA NITROGEN 121 mg/dL (7-18); CALCIUM 9.1 MG/DL (8.5-10.1); CARBON DIOXIDE 27 MMOL/L (21-32); CHLORIDE 111 MMOL/L (98-107); CREATININE 3.3 MG/DL (0.55-1.30); PHOSPHORUS 5.1 MG/DL (2.5-4.9); POTASSIUM 4.6 MMOL/L (3.5-5.1); SODIUM 145 MMOL/L (136-145)
--- NOTE | 2018-02-13 11:28 | Infectious Diseases Prog Note ---
Assessment/Plan Assessment/Plan Assessment: Acute encephalopathy- ?related to pain meds in the setting of renal dysfunction - r/o intracranial pathology- no signs or symptoms of infectious process -Brain MRI: No acute intracranial findings. Mild atrophy and evidence of chronic small vessel disease involving white matter tracts. -CT head: No evidence of acute intracranial hemorrhage, mass effect, midline shift or cortical edema. MRI may be obtained for more sensitive evaluation as clinically indicated. Atrophy and nonspecific periventricular hypoattenuation suggestive of chronic ischemic microvascular changes. Intracranial atherosclerosis. Hypothermia, resolved -no leukocytosis -u/a no pyuria -CXR: Cardiomegaly with interstitial opacification/edema, small left/trace right pleural effusions and left basilar atelectasis/consolidation. Findings may be related to CHF/fluid overload. Superimposed pneumonia should be excluded clinically. -Bcx NTD s/p PEG 02/08 Very elevated ALP/GGT- ?etiology (normal ALT, AST, Tbili) -abd US: Evaluation limited due to overlying bandages and overlying bowel gas. The pancreas and portions of the abdominal aorta are not visualized. The gallbladder is poorly evaluated as well. The presence of a gallbladder pathology is not entirely excluded. No definite focal hepatic mass lesion appreciated. Evidence of left lower quadrant renal transplant. [place] kidneys not imaged. Borderline splenomegaly. Left pleural effusion partially visualized. Neck pain ?Seizure episode AI, worsening ESRD s/p kidney transplant about 3 years ago DM2 HTN Plan: -Continue to monitor off abx -02/05 Vanco and Ceftriaxone x1 -Monitor CBC/BMP, temperatures -aspiration precautions -Neuro f/u -PEG care -wound care/prevention per hosp protocol Thank you for this consultation. Will continue to follow along with you. Discussed with RN. Subjective Allergies: Coded Allergies: No Known Allergies (Unverified , 02/05/18) Subjective afebrile no leukocytosis off abx Bcx Neg Objective Vital Signs Last 24 Hour Vital Signs Date Time Temp Pulse Resp B/P (MAP) Pulse Ox O2 Delivery O2 Flow Rate FiO2 02/13/18 08:06 86 143/71 02/13/18 08:06 86 143/71 02/13/18 08:00 Room Air 02/13/18 08:00 97.9 86 20 143/71 100 97.9 02/13/18 04:00 97.2 82 18 149/80 98 97.2 02/13/18 00:00 97.3 85 19 148/79 96 97.3 02/13/18 00:00 96 Room Air 02/12/18 21:10 90 150/81 02/12/18 20:31 90 16 Room Air 21 02/12/18 20:00 98 Room Air 02/12/18 20:00 97.1 79 19 150/81 98 97.1 02/12/18 17:30 74 159/77 02/12/18 15:56 96.8 74 20 159/77 100 96.8 02/12/18 15:56 Room Air 02/12/18 12:00 98.0 74 19 163/73 97 98.0 Height (Feet): 5 Height (Inches): 5.00 Weight (Pounds): 145 Objective General Appearance: WD/WN, no apparent distress Lines, tubes and drains: peripheral HEENT: normocephalic, atraumatic Neck: non-tender, normal alignment Respiratory/Chest: chest wall non-tender, lungs clear, normal breath sounds Cardiovascular/Chest: normal rate Abdomen: normal bowel sounds, non tender; s/p PEG, abdominal binder in place Extremities: trace edema, bruises, ecchymosis Laboratory Tests Test 02/12/18 15:40 02/13/18 08:30 C-Reactive Protein, Quantitative 11.3 mg/dL (0.00-0.90) H White Blood Count 8.2 K/UL (4.8-10.8) Red Blood Count 2.72 M/UL (4.70-6.10) L Hemoglobin 8.8 G/DL (14.2-18.0) L Hematocrit 25.9 % (42.0-52.0) L Mean Corpuscular Volume 95 FL (80-99) Mean Corpuscular Hemoglobin 32.4 PG (27.0-31.0) H Mean Corpuscular Hemoglobin Concent 33.9 G/DL (32.0-36.0) Red Cell Distribution Width 16.8 % (11.6-14.8) H Platelet Count 152 K/UL (150-450) Mean Platelet Volume 5.4 FL (6.5-10.1) L Neutrophils (%) (Auto) 74.5 % (45.0-75.0) Lymphocytes (%) (Auto) 13.3 % (20.0-45.0) L Monocytes (%) (Auto) 6.9 % (1.0-10.0) Eosinophils (%) (Auto) 4.8 % (0.0-3.0) H Basophils (%) (Auto) 0.6 % (0.0-2.0) Sodium Level 145 MMOL/L (136-145) Potassium Level 4.6 MMOL/L (3.5-5.1) Chloride Level 111 MMOL/L (98-107) H Carbon Dioxide Level 27 MMOL/L (21-32) Anion Gap 8 mmol/L (5-15) Blood Urea Nitrogen 121 mg/dL (7-18) H Creatinine 3.3 MG/DL (0.55-1.30) H Estimat Glomerular Filtration Rate 18.8 mL/min (>60) Glucose Level 150 MG/DL (74-106) H Uric Acid 8.2 MG/DL (2.6-7.2) H Calcium Level 9.1 MG/DL (8.5-10.1) Phosphorus Level 5.1 MG/DL (2.5-4.9) H Magnesium Level 3.6 MG/DL (1.8-2.4) H Total Bilirubin 1.0 MG/DL (0.2-1.0) Aspartate Amino Transf (AST/SGOT) 49 U/L (15-37) H Alanine Aminotransferase (ALT/SGPT) 32 U/L (12-78) Alkaline Phosphatase 1035 U/L (46-116) H Pro-B-Type Natriuretic Peptide 85075 pg/mL (0-125) H Total Protein 5.4 G/DL (6.4-8.2) L Albumin 1.5 G/DL (3.4-5.0) L Globulin 3.9 g/dL Albumin/Globulin Ratio 0.4 (1.0-2.7) L Current Medications Medications (Trade) Dose Ordered Sig/Manuel Route PRN Reason Start Time Stop Time Status Last Admin Dose Admin Acetaminophen (Tylenol) 650 mg Q4H PRN ORAL fever (temp>100.5F) 02/08/18 18:47 03/07/18 18:46 Amlodipine Besylate (Norvasc) 5 mg BID NG 02/11/18 18:00 03/10/18 08:59 02/13/18 08:06 Carvedilol (Coreg) 25 mg Q12HR NG 02/08/18 21:00 03/07/18 20:59 02/13/18 08:06 Clonidine HCl (Catapres Tab) 0.1 mg Q4H PRN NG For High BP 160 and above 02/08/18 18:48 03/07/18 18:47 02/10/18 05:54 Dextrose (Dextrose 50%) 25 ml STAT PRN IV Hypoglycemia BS 60-69mg/dl 02/08/18 18:48 03/10/18 18:47 Dextrose (Dextrose 50%) 50 ml STAT PRN IV Hypoglycemia BS less than 60mg 02/08/18 18:48 03/10/18 18:47 Famotidine (Pepcid) 20 mg Q12HR GT 02/08/18 21:00 03/08/18 13:31 02/13/18 08:06 Heparin Sodium (Porcine) (Heparin 5000 units/ml) 5,000 units EVERY 12 HOURS SUBQ 02/08/18 21:00 03/07/18 20:59 02/13/18 08:10 Insulin Aspart (NovoLOG) EVERY 6 HOURS SUBQ 02/09/18 00:00 03/11/18 00:00 02/13/18 05:35 Morphine Sulfate (Morphine Sulfate) 1 mg Q4H PRN IVP For Pain 02/11/18 10:58 02/15/18 10:57 Olanzapine (ZyPREXA) 2.5 mg BEDTIME GT 02/08/18 21:00 03/08/18 22:12 02/12/18 21:10 Ondansetron HCl (Zofran) 4 mg Q6H PRN IVP Nausea & Vomiting 02/08/18 18:51 03/07/18 18:50 Polyethylene Glycol (Miralax) 17 gm HSPRN PRN ORAL Constipation 02/08/18 21:00 03/10/18 20:59 02/11/18 18:40 Prednisone (predniSONE) 5 mg DAILY ORAL 02/09/18 09:00 03/08/18 09:59 02/13/18 08:06 Sevelamer Carbonate (Renvela) 800 mg THREE TIMES A DAY NG 02/09/18 09:00 03/09/18 17:59 02/13/18 08:06 Tacrolimus (Prograf) 0.5 mg EVERY 12 HOURS ORAL 02/08/18 21:00 03/07/18 20:59 02/13/18 08:06 Zolpidem Tartrate (Ambien) 5 mg HSPRN PRN ORAL Insomnia 02/08/18 21:00 02/15/18 20:59 02/09/18 21:02 Tia Ortega M.D. February 13, 2018 11:28
--- NOTE | 2018-02-13 12:44 | Pulmonology Progress Note ---
Assessment/Plan Problems: (1) Acute encephalopathy (2) Chronic kidney insufficiency (3) History of hypertension (4) Hx of kidney transplant (5) Diabetes mellitus (6) Severe malnutrition (7) Nephrotic syndrome (8) Encounter for PEG (percutaneous endoscopic gastrostomy) Assessment/Plan awake, comfortable Gtube done, tolerating well neuro evaluation appreciated family would agree with Feeding Tube if pt can't swallow siding scale monitor BP med/surg dc planning Subjective ROS Limited/Unobtainable: No Constitutional: Reports: no symptoms Allergies: Coded Allergies: No Known Allergies (Unverified , 02/05/18) Objective Last 24 Hour Vital Signs Date Time Temp Pulse Resp B/P (MAP) Pulse Ox O2 Delivery O2 Flow Rate FiO2 02/13/18 08:06 86 143/71 02/13/18 08:06 86 143/71 02/13/18 08:00 Room Air 02/13/18 08:00 97.9 86 20 143/71 100 97.9 02/13/18 04:00 97.2 82 18 149/80 98 97.2 02/13/18 00:00 97.3 85 19 148/79 96 97.3 02/13/18 00:00 96 Room Air 02/12/18 21:10 90 150/81 02/12/18 20:31 90 16 Room Air 21 02/12/18 20:00 98 Room Air 02/12/18 20:00 97.1 79 19 150/81 98 97.1 02/12/18 17:30 74 159/77 02/12/18 15:56 96.8 74 20 159/77 100 96.8 02/12/18 15:56 Room Air Intake and Output 02/12/18 02/13/18 19:00 07:00 Intake Total 170 ml 530 ml Balance 170 ml 530 ml Free Water 30 ml 110 ml Tube Feeding 140 ml 420 ml General Appearance: WD/WN HEENT: normocephalic, atraumatic Respiratory/Chest: chest wall non-tender, lungs clear Cardiovascular: normal peripheral pulses, normal rate, regular rhythm Abdomen: normal bowel sounds, soft, non tender Extremities: no clubbing Skin: no rash Neurologic/Psychiatric: gore stitcher II-XII grossly normal Lymphatic: no neck adenopathy Laboratory Tests 02/12/18 15:40: C-Reactive Protein, Quantitative 11.3H 02/13/18 08:30: White Blood Count 8.2, Red Blood Count 2.72L, Hemoglobin 8.8L, Hematocrit 25.9L , Mean Corpuscular Volume 95, Mean Corpuscular Hemoglobin 32.4H, Mean Corpuscular Hemoglobin Concent 33.9, Red Cell Distribution Width 16.8H, Platelet Count 152, Mean Platelet Volume 5.4L, Neutrophils (%) (Auto) 74.5, Lymphocytes (%) (Auto) 13.3L, Monocytes (%) (Auto) 6.9, Eosinophils (%) (Auto) 4.8H, Basophils (%) (Auto) 0.6, Sodium Level 145, Potassium Level 4.6, Chloride Level 111H, Carbon Dioxide Level 27, Anion Gap 8, Blood Urea Nitrogen 121H, Creatinine 3.3H, Estimat Glomerular Filtration Rate 18.8, Glucose Level 150H, Uric Acid 8.2H, Calcium Level 9.1, Phosphorus Level 5.1H, Magnesium Level 3.6H, Total Bilirubin 1.0, Aspartate Amino Transf (AST/SGOT) 49H, Alanine Aminotransferase (ALT/SGPT) 32, Alkaline Phosphatase 1035H, Pro-B-Type Natriuretic Peptide 81297R, Total Protein 5.4L, Albumin 1.5L, Globulin 3.9, Albumin/Globulin Ratio 0.4L Current Medications Medications (Trade) Dose Ordered Sig/Manuel Route PRN Reason Start Time Stop Time Status Last Admin Dose Admin Acetaminophen (Tylenol) 650 mg Q4H PRN ORAL fever (temp>100.5F) 02/08/18 18:47 03/07/18 18:46 Amlodipine Besylate (Norvasc) 5 mg BID NG 02/11/18 18:00 03/10/18 08:59 02/13/18 08:06 Carvedilol (Coreg) 25 mg Q12HR NG 02/08/18 21:00 03/07/18 20:59 02/13/18 08:06 Clonidine HCl (Catapres Tab) 0.1 mg Q4H PRN NG For High BP 160 and above 02/08/18 18:48 03/07/18 18:47 02/10/18 05:54 Dextrose (Dextrose 50%) 25 ml STAT PRN IV Hypoglycemia BS 60-69mg/dl 02/08/18 18:48 03/10/18 18:47 Dextrose (Dextrose 50%) 50 ml STAT PRN IV Hypoglycemia BS less than 60mg 02/08/18 18:48 03/10/18 18:47 Famotidine (Pepcid) 20 mg Q12HR GT 02/08/18 21:00 03/08/18 13:31 02/13/18 08:06 Heparin Sodium (Porcine) (Heparin 5000 units/ml) 5,000 units EVERY 12 HOURS SUBQ 02/08/18 21:00 03/07/18 20:59 02/13/18 08:10 Insulin Aspart (NovoLOG) EVERY 6 HOURS SUBQ 02/09/18 00:00 03/11/18 00:00 02/13/18 11:39 Morphine Sulfate (Morphine Sulfate) 1 mg Q4H PRN IVP For Pain 02/11/18 10:58 02/15/18 10:57 Olanzapine (ZyPREXA) 2.5 mg BEDTIME GT 02/08/18 21:00 03/08/18 22:12 02/12/18 21:10 Ondansetron HCl (Zofran) 4 mg Q6H PRN IVP Nausea & Vomiting 02/08/18 18:51 03/07/18 18:50 Polyethylene Glycol (Miralax) 17 gm HSPRN PRN ORAL Constipation 02/08/18 21:00 03/10/18 20:59 02/11/18 18:40 Prednisone (predniSONE) 5 mg DAILY ORAL 02/09/18 09:00 03/08/18 09:59 02/13/18 08:06 Sevelamer Carbonate (Renvela) 800 mg THREE TIMES A DAY NG 02/09/18 09:00 03/09/18 17:59 02/13/18 12:39 Tacrolimus (Prograf) 0.5 mg EVERY 12 HOURS ORAL 02/08/18 21:00 03/07/18 20:59 02/13/18 08:06 Zolpidem Tartrate (Ambien) 5 mg HSPRN PRN ORAL Insomnia 02/08/18 21:00 02/15/18 20:59 02/09/18 21:02 Le Bagley MD February 13, 2018 12:44
[2018-02-13] MEDS ORDERED: NORVASC5 MG NG (12:52)
[2018-02-13] MEDS ORDERED: OLANZAPINE5 MG GT (12:52)
--- NOTE | 2018-02-13 13:29 | GI Progress Note ---
Assessment/Plan Problems: (1) Severe malnutrition ICD Codes: E43 - Unspecified severe protein-calorie malnutrition SNOMED: 35399549 (2) Encounter for PEG (percutaneous endoscopic gastrostomy) ICD Codes: Z43.1 - Encounter for attention to gastrostomy SNOMED: 815704540, 854857927 (3) Nephrotic syndrome ICD Codes: N04.9 - Nephrotic syndrome with unspecified morphologic changes SNOMED: 54434967 (4) Dysphagia ICD Codes: R13.10 - Dysphagia, unspecified SNOMED: 49019735, 973648503 (5) Acute encephalopathy ICD Codes: G93.40 - Encephalopathy, unspecified SNOMED: 29506245, 797030875 (6) Diabetes mellitus ICD Codes: E11.9 - Type 2 diabetes mellitus without complications SNOMED: 42589454 Status: stable Status Narrative Discussed with Dr. Watson. Assessment/Plan SUMMARY OF FINDINGS: Status post successful PEG placement. RECOMMENDATIONS: okay for DC per GI standpoint 1. Abdominal binder. 2. Elevate the head of the bed at all times. 3. G-tube flush. 4. G-tube care. 5. Start tube feeding. fu labs okay for DC per GI standpoint The patient was seen and examined at bedside and all new and available data was reviewed in the patients chart. I agree with the above findings, impression and plan. (Patient seen earlier today. Signature stamp does not reflect patient encounter time.). - Armand Watson MD Subjective Subjective limited Objective Last 24 Hour Vital Signs Date Time Temp Pulse Resp B/P (MAP) Pulse Ox O2 Delivery O2 Flow Rate FiO2 02/13/18 12:52 97.7 84 20 131/60 99 97.7 02/13/18 08:06 86 143/71 02/13/18 08:06 86 143/71 02/13/18 08:00 Room Air 02/13/18 08:00 97.9 86 20 143/71 100 97.9 02/13/18 04:00 97.2 82 18 149/80 98 97.2 02/13/18 00:00 97.3 85 19 148/79 96 97.3 02/13/18 00:00 96 Room Air 02/12/18 21:10 90 150/81 02/12/18 20:31 90 16 Room Air 21 02/12/18 20:00 98 Room Air 5/7/18 20:00 97.1 79 19 150/81 98 97.1 02/12/18 17:30 74 159/77 02/12/18 15:56 96.8 74 20 159/77 100 96.8 02/12/18 15:56 Room Air Intake and Output 02/12/18 02/13/18 19:00 07:00 Intake Total 170 ml 530 ml Balance 170 ml 530 ml Free Water 30 ml 110 ml Tube Feeding 140 ml 420 ml Laboratory Tests Test 02/12/18 15:40 02/13/18 08:30 C-Reactive Protein, Quantitative 11.3 mg/dL (0.00-0.90) H White Blood Count 8.2 K/UL (4.8-10.8) Red Blood Count 2.72 M/UL (4.70-6.10) L Hemoglobin 8.8 G/DL (14.2-18.0) L Hematocrit 25.9 % (42.0-52.0) L Mean Corpuscular Volume 95 FL (80-99) Mean Corpuscular Hemoglobin 32.4 PG (27.0-31.0) H Mean Corpuscular Hemoglobin Concent 33.9 G/DL (32.0-36.0) Red Cell Distribution Width 16.8 % (11.6-14.8) H Platelet Count 152 K/UL (150-450) Mean Platelet Volume 5.4 FL (6.5-10.1) L Neutrophils (%) (Auto) 74.5 % (45.0-75.0) Lymphocytes (%) (Auto) 13.3 % (20.0-45.0) L Monocytes (%) (Auto) 6.9 % (1.0-10.0) Eosinophils (%) (Auto) 4.8 % (0.0-3.0) H Basophils (%) (Auto) 0.6 % (0.0-2.0) Sodium Level 145 MMOL/L (136-145) Potassium Level 4.6 MMOL/L (3.5-5.1) Chloride Level 111 MMOL/L (98-107) H Carbon Dioxide Level 27 MMOL/L (21-32) Anion Gap 8 mmol/L (5-15) Blood Urea Nitrogen 121 mg/dL (7-18) H Creatinine 3.3 MG/DL (0.55-1.30) H Estimat Glomerular Filtration Rate 18.8 mL/min (>60) Glucose Level 150 MG/DL (74-106) H Uric Acid 8.2 MG/DL (2.6-7.2) H Calcium Level 9.1 MG/DL (8.5-10.1) Phosphorus Level 5.1 MG/DL (2.5-4.9) H Magnesium Level 3.6 MG/DL (1.8-2.4) H Total Bilirubin 1.0 MG/DL (0.2-1.0) Aspartate Amino Transf (AST/SGOT) 49 U/L (15-37) H Alanine Aminotransferase (ALT/SGPT) 32 U/L (12-78) Alkaline Phosphatase 1035 U/L (46-116) H Pro-B-Type Natriuretic Peptide 24813 pg/mL (0-125) H Total Protein 5.4 G/DL (6.4-8.2) L Albumin 1.5 G/DL (3.4-5.0) L Globulin 3.9 g/dL Albumin/Globulin Ratio 0.4 (1.0-2.7) L Height (Feet): 5 Height (Inches): 5.00 Weight (Pounds): 145 General Appearance: WD/WN, no apparent distress, alert Cardiovascular: normal rate Respiratory/Chest: normal breath sounds, no respiratory distress Abdominal Exam: normal bowel sounds, non tender, soft, GT site Extremities: non-tender Jaja Figueredo N.P. February 13, 2018 13:28
--- NOTE | 2018-02-13 14:35 | General Progress Note ---
Assessment/Plan Status: stable, progressing Assessment/Plan encephalopathy -the pt lacks capacity to make decisions -Zyprexa 2.5 qh -d/w family Subjective Date patient seen: February 12, 2018 Allergies: Coded Allergies: No Known Allergies (Unverified , 02/05/18) Subjective the pt has waxing and waning of consciousness. The pt tolerating GT. the pt sister was in room Objective Last 24 Hour Vital Signs Date Time Temp Pulse Resp B/P (MAP) Pulse Ox O2 Delivery O2 Flow Rate FiO2 02/13/18 12:52 97.7 84 20 131/60 99 97.7 02/13/18 08:06 86 143/71 02/13/18 08:06 86 143/71 02/13/18 08:00 Room Air 02/13/18 08:00 97.9 86 20 143/71 100 97.9 02/13/18 04:00 97.2 82 18 149/80 98 97.2 02/13/18 00:00 97.3 85 19 148/79 96 97.3 02/13/18 00:00 96 Room Air 02/12/18 21:10 90 150/81 02/12/18 20:31 90 16 Room Air 21 02/12/18 20:00 98 Room Air 02/12/18 20:00 97.1 79 19 150/81 98 97.1 02/12/18 17:30 74 159/77 02/12/18 15:56 96.8 74 20 159/77 100 96.8 02/12/18 15:56 Room Air Intake and Output 02/12/18 02/13/18 19:00 07:00 Intake Total 170 ml 530 ml Balance 170 ml 530 ml Free Water 30 ml 110 ml Tube Feeding 140 ml 420 ml Laboratory Tests 02/12/18 15:40: C-Reactive Protein, Quantitative 11.3H 02/13/18 08:30: White Blood Count 8.2, Red Blood Count 2.72L, Hemoglobin 8.8L, Hematocrit 25.9L , Mean Corpuscular Volume 95, Mean Corpuscular Hemoglobin 32.4H, Mean Corpuscular Hemoglobin Concent 33.9, Red Cell Distribution Width 16.8H, Platelet Count 152, Mean Platelet Volume 5.4L, Neutrophils (%) (Auto) 74.5, Lymphocytes (%) (Auto) 13.3L, Monocytes (%) (Auto) 6.9, Eosinophils (%) (Auto) 4.8H, Basophils (%) (Auto) 0.6, Sodium Level 145, Potassium Level 4.6, Chloride Level 111H, Carbon Dioxide Level 27, Anion Gap 8, Blood Urea Nitrogen 121H, Creatinine 3.3H, Estimat Glomerular Filtration Rate 18.8, Glucose Level 150H, Uric Acid 8.2H, Calcium Level 9.1, Phosphorus Level 5.1H, Magnesium Level 3.6H, Total Bilirubin 1.0, Aspartate Amino Transf (AST/SGOT) 49H, Alanine Aminotransferase (ALT/SGPT) 32, Alkaline Phosphatase 1035H, Pro-B-Type Natriuretic Peptide 09808T, Total Protein 5.4L, Albumin 1.5L, Globulin 3.9, Albumin/Globulin Ratio 0.4L Height (Feet): 5 Height (Inches): 5.00 Weight (Pounds): 145 General Appearance: no apparent distress, lethargic, confused Tonny Tang M.D. February 13, 2018 14:35
--- NOTE | 2018-02-13 14:37 | General Progress Note ---
Assessment/Plan Assessment/Plan encephalopathy -the pt lacks capacity to make decisions -Zyprexa 2.5 qh -d/w family Subjective Date patient seen: February 13, 2018 Neurologic/Psychiatric: Reports: anxiety, depressed, emotional problems Allergies: Coded Allergies: No Known Allergies (Unverified , 02/05/18) Subjective the pt is more alert Objective Last 24 Hour Vital Signs Date Time Temp Pulse Resp B/P (MAP) Pulse Ox O2 Delivery O2 Flow Rate FiO2 02/13/18 12:52 97.7 84 20 131/60 99 97.7 02/13/18 08:06 86 143/71 02/13/18 08:06 86 143/71 02/13/18 08:00 Room Air 02/13/18 08:00 97.9 86 20 143/71 100 97.9 02/13/18 04:00 97.2 82 18 149/80 98 97.2 02/13/18 00:00 97.3 85 19 148/79 96 97.3 02/13/18 00:00 96 Room Air 02/12/18 21:10 90 150/81 02/12/18 20:31 90 16 Room Air 21 02/12/18 20:00 98 Room Air 02/12/18 20:00 97.1 79 19 150/81 98 97.1 02/12/18 17:30 74 159/77 02/12/18 15:56 96.8 74 20 159/77 100 96.8 02/12/18 15:56 Room Air Intake and Output 02/12/18 02/13/18 19:00 07:00 Intake Total 170 ml 530 ml Balance 170 ml 530 ml Free Water 30 ml 110 ml Tube Feeding 140 ml 420 ml Laboratory Tests 02/12/18 15:40: C-Reactive Protein, Quantitative 11.3H 02/13/18 08:30: White Blood Count 8.2, Red Blood Count 2.72L, Hemoglobin 8.8L, Hematocrit 25.9L , Mean Corpuscular Volume 95, Mean Corpuscular Hemoglobin 32.4H, Mean Corpuscular Hemoglobin Concent 33.9, Red Cell Distribution Width 16.8H, Platelet Count 152, Mean Platelet Volume 5.4L, Neutrophils (%) (Auto) 74.5, Lymphocytes (%) (Auto) 13.3L, Monocytes (%) (Auto) 6.9, Eosinophils (%) (Auto) 4.8H, Basophils (%) (Auto) 0.6, Sodium Level 145, Potassium Level 4.6, Chloride Level 111H, Carbon Dioxide Level 27, Anion Gap 8, Blood Urea Nitrogen 121H, Creatinine 3.3H, Estimat Glomerular Filtration Rate 18.8, Glucose Level 150H, Uric Acid 8.2H, Calcium Level 9.1, Phosphorus Level 5.1H, Magnesium Level 3.6H, Total Bilirubin 1.0, Aspartate Amino Transf (AST/SGOT) 49H, Alanine Aminotransferase (ALT/SGPT) 32, Alkaline Phosphatase 1035H, Pro-B-Type Natriuretic Peptide 81343P, Total Protein 5.4L, Albumin 1.5L, Globulin 3.9, Albumin/Globulin Ratio 0.4L Height (Feet): 5 Height (Inches): 5.00 Weight (Pounds): 145 General Appearance: WD/WN, no apparent distress, alert - the pt is more alert able to answer questons more approriately still confused Tonny Tang M.D. February 13, 2018 14:37
--- NOTE | 2018-02-13 14:39 | Geriatric Progress Note ---
Assessment/Plan Assessment/Plan encephalopathy -the pt lacks capacity to make decisions -Zyprexa 2.5 qh -d/w family Subjective Interval Events 02/11/18 Mood/Memory: Reports: prior hx, anxiety, depressed feelings Geriatric Geriatric Last 24 Hour Vital Signs Date Time Temp Pulse Resp B/P (MAP) Pulse Ox O2 Delivery O2 Flow Rate FiO2 02/13/18 12:52 97.7 84 20 131/60 99 97.7 02/13/18 08:06 86 143/71 02/13/18 08:06 86 143/71 02/13/18 08:00 Room Air 02/13/18 08:00 97.9 86 20 143/71 100 97.9 02/13/18 04:00 97.2 82 18 149/80 98 97.2 02/13/18 00:00 97.3 85 19 148/79 96 97.3 02/13/18 00:00 96 Room Air 02/12/18 21:10 90 150/81 02/12/18 20:31 90 16 Room Air 21 02/12/18 20:00 98 Room Air 02/12/18 20:00 97.1 79 19 150/81 98 97.1 02/12/18 17:30 74 159/77 02/12/18 15:56 96.8 74 20 159/77 100 96.8 02/12/18 15:56 Room Air Intake and Output 02/12/18 02/13/18 19:00 07:00 Intake Total 170 ml 530 ml Balance 170 ml 530 ml Free Water 30 ml 110 ml Tube Feeding 140 ml 420 ml Laboratory Tests Test 02/12/18 15:40 02/13/18 08:30 C-Reactive Protein, Quantitative 11.3 mg/dL (0.00-0.90) H White Blood Count 8.2 K/UL (4.8-10.8) Red Blood Count 2.72 M/UL (4.70-6.10) L Hemoglobin 8.8 G/DL (14.2-18.0) L Hematocrit 25.9 % (42.0-52.0) L Mean Corpuscular Volume 95 FL (80-99) Mean Corpuscular Hemoglobin 32.4 PG (27.0-31.0) H Mean Corpuscular Hemoglobin Concent 33.9 G/DL (32.0-36.0) Red Cell Distribution Width 16.8 % (11.6-14.8) H Platelet Count 152 K/UL (150-450) Mean Platelet Volume 5.4 FL (6.5-10.1) L Neutrophils (%) (Auto) 74.5 % (45.0-75.0) Lymphocytes (%) (Auto) 13.3 % (20.0-45.0) L Monocytes (%) (Auto) 6.9 % (1.0-10.0) Eosinophils (%) (Auto) 4.8 % (0.0-3.0) H Basophils (%) (Auto) 0.6 % (0.0-2.0) Sodium Level 145 MMOL/L (136-145) Potassium Level 4.6 MMOL/L (3.5-5.1) Chloride Level 111 MMOL/L (98-107) H Carbon Dioxide Level 27 MMOL/L (21-32) Anion Gap 8 mmol/L (5-15) Blood Urea Nitrogen 121 mg/dL (7-18) H Creatinine 3.3 MG/DL (0.55-1.30) H Estimat Glomerular Filtration Rate 18.8 mL/min (>60) Glucose Level 150 MG/DL (74-106) H Uric Acid 8.2 MG/DL (2.6-7.2) H Calcium Level 9.1 MG/DL (8.5-10.1) Phosphorus Level 5.1 MG/DL (2.5-4.9) H Magnesium Level 3.6 MG/DL (1.8-2.4) H Total Bilirubin 1.0 MG/DL (0.2-1.0) Aspartate Amino Transf (AST/SGOT) 49 U/L (15-37) H Alanine Aminotransferase (ALT/SGPT) 32 U/L (12-78) Alkaline Phosphatase 1035 U/L (46-116) H Pro-B-Type Natriuretic Peptide 01142 pg/mL (0-125) H Total Protein 5.4 G/DL (6.4-8.2) L Albumin 1.5 G/DL (3.4-5.0) L Globulin 3.9 g/dL Albumin/Globulin Ratio 0.4 (1.0-2.7) L Current Medications Medications (Trade) Dose Ordered Sig/Manuel Route PRN Reason Start Time Stop Time Status Last Admin Dose Admin Acetaminophen (Tylenol) 650 mg Q4H PRN ORAL fever (temp>100.5F) 02/08/18 18:47 03/07/18 18:46 Amlodipine Besylate (Norvasc) 5 mg BID NG 02/11/18 18:00 03/10/18 08:59 02/13/18 08:06 Carvedilol (Coreg) 25 mg Q12HR NG 02/08/18 21:00 03/07/18 20:59 02/13/18 08:06 Clonidine HCl (Catapres Tab) 0.1 mg Q4H PRN NG For High BP 160 and above 02/08/18 18:48 03/07/18 18:47 02/10/18 05:54 Dextrose (Dextrose 50%) 25 ml STAT PRN IV Hypoglycemia BS 60-69mg/dl 02/08/18 18:48 03/10/18 18:47 Dextrose (Dextrose 50%) 50 ml STAT PRN IV Hypoglycemia BS less than 60mg 02/08/18 18:48 03/10/18 18:47 Famotidine (Pepcid) 20 mg Q12HR GT 02/08/18 21:00 03/08/18 13:31 02/13/18 08:06 Heparin Sodium (Porcine) (Heparin 5000 units/ml) 5,000 units EVERY 12 HOURS SUBQ 02/08/18 21:00 03/07/18 20:59 02/13/18 08:10 Insulin Aspart (NovoLOG) EVERY 6 HOURS SUBQ 02/09/18 00:00 03/11/18 00:00 02/13/18 11:39 Morphine Sulfate (Morphine Sulfate) 1 mg Q4H PRN IVP For Pain 02/11/18 10:58 02/15/18 10:57 Olanzapine (ZyPREXA) 2.5 mg BEDTIME GT 02/08/18 21:00 03/08/18 22:12 02/12/18 21:10 Ondansetron HCl (Zofran) 4 mg Q6H PRN IVP Nausea & Vomiting 02/08/18 18:51 03/07/18 18:50 Polyethylene Glycol (Miralax) 17 gm HSPRN PRN ORAL Constipation 02/08/18 21:00 03/10/18 20:59 02/11/18 18:40 Prednisone (predniSONE) 5 mg DAILY ORAL 02/09/18 09:00 03/08/18 09:59 02/13/18 08:06 Sevelamer Carbonate (Renvela) 800 mg THREE TIMES A DAY NG 02/09/18 09:00 03/09/18 17:59 02/13/18 12:39 Tacrolimus (Prograf) 0.5 mg EVERY 12 HOURS ORAL 02/08/18 21:00 03/07/18 20:59 02/13/18 08:06 Zolpidem Tartrate (Ambien) 5 mg HSPRN PRN ORAL Insomnia 02/08/18 21:00 02/15/18 20:59 02/09/18 21:02 Height (Feet): 5 Height (Inches): 5.00 Weight (Pounds): 145 General Appearance: well nourished, no apparent distress Neurologic: alert Psychiatric Language/Speech: slow Orientation: person, disoriented Affect: appropriate Insight: Tonny Mitchell M.D. February 13, 2018 14:39
--- NOTE | 2018-02-13 15:30 | Nephrology Progress Note ---
Assessment/Plan Problem List: (1) Acute encephalopathy (2) Chronic kidney insufficiency (3) History of hypertension (4) Nephrotic syndrome (5) Severe malnutrition Assessment worsenning Anemia Renal failure- Appears mainly prerenal, likely with underlying renal worsened previous kidney transplant acute encephalopathy previous multiple transfusions hypoalbuminemia 4+ proteinuria left arm swelling adjust bp meds Plan Plan: add isordil increase renvela 24 h CrCl Cr 3.3 abdominal JAYE : results noted change feeding to Nepro PEG in 2D Echo Noted Avoid nephrotoxics monitor renal parameters venous duplex left arm Neg 24 h urine for total Protein over 5 grams Subjective ROS Limited/Unobtainable: No Constitutional: Reports: malaise Objective Objective Last 24 Hour Vital Signs Date Time Temp Pulse Resp B/P (MAP) Pulse Ox O2 Delivery O2 Flow Rate FiO2 02/13/18 12:52 97.7 84 20 131/60 99 97.7 02/13/18 08:06 86 143/71 02/13/18 08:06 86 143/71 02/13/18 08:00 Room Air 02/13/18 08:00 97.9 86 20 143/71 100 97.9 02/13/18 04:00 97.2 82 18 149/80 98 97.2 02/13/18 00:00 97.3 85 19 148/79 96 97.3 02/13/18 00:00 96 Room Air 02/12/18 21:10 90 150/81 02/12/18 20:31 90 16 Room Air 21 02/12/18 20:00 98 Room Air 02/12/18 20:00 97.1 79 19 150/81 98 97.1 02/12/18 17:30 74 159/77 02/12/18 15:56 96.8 74 20 159/77 100 96.8 02/12/18 15:56 Room Air Intake and Output 02/12/18 02/13/18 19:00 07:00 Intake Total 170 ml 530 ml Balance 170 ml 530 ml Free Water 30 ml 110 ml Tube Feeding 140 ml 420 ml Laboratory Tests 02/12/18 15:40: C-Reactive Protein, Quantitative 11.3H 02/13/18 08:30: White Blood Count 8.2, Red Blood Count 2.72L, Hemoglobin 8.8L, Hematocrit 25.9L , Mean Corpuscular Volume 95, Mean Corpuscular Hemoglobin 32.4H, Mean Corpuscular Hemoglobin Concent 33.9, Red Cell Distribution Width 16.8H, Platelet Count 152, Mean Platelet Volume 5.4L, Neutrophils (%) (Auto) 74.5, Lymphocytes (%) (Auto) 13.3L, Monocytes (%) (Auto) 6.9, Eosinophils (%) (Auto) 4.8H, Basophils (%) (Auto) 0.6, Sodium Level 145, Potassium Level 4.6, Chloride Level 111H, Carbon Dioxide Level 27, Anion Gap 8, Blood Urea Nitrogen 121H, Creatinine 3.3H, Estimat Glomerular Filtration Rate 18.8, Glucose Level 150H, Uric Acid 8.2H, Calcium Level 9.1, Phosphorus Level 5.1H, Magnesium Level 3.6H, Total Bilirubin 1.0, Aspartate Amino Transf (AST/SGOT) 49H, Alanine Aminotransferase (ALT/SGPT) 32, Alkaline Phosphatase 1035H, Pro-B-Type Natriuretic Peptide 19512R, Total Protein 5.4L, Albumin 1.5L, Globulin 3.9, Albumin/Globulin Ratio 0.4L Height (Feet): 5 Height (Inches): 5.00 Weight (Pounds): 145 General Appearance: no apparent distress Objective no change MELISA HOYT February 13, 2018 15:30
--- NOTE | 2018-02-13 16:20 | General Progress Note ---
Assessment/Plan Assessment/Plan 1. Anemia due to underlying chronic disease. --> Anemia workup has been reviewed. --> Ferritin of 1300, percent saturation 28, TIBC 105, magnesium of 3.4. --> Hemoglobin goal is above 7. --> No occult blood found. 2. Anemia due to underlying kidney disease. --> Continue the patient on Procrit. --> The patient with a history of renal transplant. Okay to continue heparin subcutaneous. 3. Leukocytosis, likely secondary to underlying infection. --> Closely monitor for improvement. --> Resolved at this time. 4. Splenomegaly. 5. Encephalopathy. 6. Dysphagia, status post percutaneous endoscopic gastrostomy tube. 7. End-stage renal disease, on hemodialysis. 8. Diabetes mellitus. --> Sliding scale 9. Hypertension. --> Improved at this time Subjective Date patient seen: February 07, 2018 Constitutional: Denies: no symptoms, chills, diaphoresis, fever, malaise, weakness, other HEENT: Denies: no symptoms, eye pain, blurred vision, tearing, double vision, ear pain, ear discharge, nose pain, nose congestion, throat pain, throat swelling, mouth pain, mouth swelling, other Cardiovascular: Denies: no symptoms, chest pain, edema, irregular heart rate, lightheadedness, palpitations, syncope, other Respiratory: Denies: no symptoms, cough, orthopnea, shortness of breath, SOB with excertion, SOB at rest, sputum, stridor, wheezing, other Gastrointestinal/Abdominal: Denies: no symptoms, abdomen distended, abdominal pain, black stools, tarry stools, blood in stool, constipated, diarrhea, difficulty swallowing, nausea, poor appetite, poor fluid intake, rectal bleeding , vomiting, other Genitourinary: Denies: no symptoms, burning, discharge, frequency, flank pain, hematuria, incontinence, pain, urgency, other Neurologic/Psychiatric: Denies: no symptoms, anxiety, depressed, emotional problems, headache, numbness, paresthesia, pre-existing deficit, seizure, tingling, tremors, weakness, other Allergies: Coded Allergies: No Known Allergies (Unverified , 02/05/18) Subjective No acute distress. H/H stable. No fever or chills. Objective Last 24 Hour Vital Signs Date Time Temp Pulse Resp B/P (MAP) Pulse Ox O2 Delivery O2 Flow Rate FiO2 02/13/18 16:02 98.4 89 20 157/54 99 98.4 02/13/18 12:52 97.7 84 20 131/60 99 97.7 02/13/18 08:06 86 143/71 02/13/18 08:06 86 143/71 02/13/18 08:00 Room Air 02/13/18 08:00 97.9 86 20 143/71 100 97.9 02/13/18 04:00 97.2 82 18 149/80 98 97.2 02/13/18 00:00 97.3 85 19 148/79 96 97.3 02/13/18 00:00 96 Room Air 02/12/18 21:10 90 150/81 02/12/18 20:31 90 16 Room Air 21 02/12/18 20:00 98 Room Air 02/12/18 20:00 97.1 79 19 150/81 98 97.1 02/12/18 17:30 74 159/77 Intake and Output 02/12/18 02/13/18 19:00 07:00 Intake Total 170 ml 530 ml Balance 170 ml 530 ml Free Water 30 ml 110 ml Tube Feeding 140 ml 420 ml Laboratory Tests 02/13/18 08:30: White Blood Count 8.2, Red Blood Count 2.72L, Hemoglobin 8.8L, Hematocrit 25.9L , Mean Corpuscular Volume 95, Mean Corpuscular Hemoglobin 32.4H, Mean Corpuscular Hemoglobin Concent 33.9, Red Cell Distribution Width 16.8H, Platelet Count 152, Mean Platelet Volume 5.4L, Neutrophils (%) (Auto) 74.5, Lymphocytes (%) (Auto) 13.3L, Monocytes (%) (Auto) 6.9, Eosinophils (%) (Auto) 4.8H, Basophils (%) (Auto) 0.6, Sodium Level 145, Potassium Level 4.6, Chloride Level 111H, Carbon Dioxide Level 27, Anion Gap 8, Blood Urea Nitrogen 121H, Creatinine 3.3H, Estimat Glomerular Filtration Rate 18.8, Glucose Level 150H, Uric Acid 8.2H, Calcium Level 9.1, Phosphorus Level 5.1H, Magnesium Level 3.6H, Total Bilirubin 1.0, Aspartate Amino Transf (AST/SGOT) 49H, Alanine Aminotransferase (ALT/SGPT) 32, Alkaline Phosphatase 1035H, Pro-B-Type Natriuretic Peptide 88864L, Total Protein 5.4L, Albumin 1.5L, Globulin 3.9, Albumin/Globulin Ratio 0.4L Height (Feet): 5 Height (Inches): 5.00 Weight (Pounds): 145 General Appearance: WD/WN, no apparent distress EENT: normal ENT inspection Cardiovascular: normal rate, regular rhythm Respiratory/Chest: chest wall non-tender, lungs clear Abdomen: normal bowel sounds, non tender Anrdeas Freed MD February 13, 2018 16:20
--- NOTE | 2018-02-13 16:26 | General Progress Note ---
Assessment/Plan Assessment/Plan 1. Anemia due to underlying chronic disease. --> Anemia workup has been reviewed. --> Ferritin of 1300, percent saturation 28, TIBC 105, magnesium of 3.4. --> Hemoglobin goal is above 7. --> No occult blood found. 2. Anemia due to underlying kidney disease. --> Continue the patient on Procrit. --> The patient with a history of renal transplant. Okay to continue heparin subcutaneous. 3. Leukocytosis, likely secondary to underlying infection. --> Closely monitor for improvement. --> Resolved at this time. 4. Splenomegaly. 5. Encephalopathy. 6. Dysphagia, status post percutaneous endoscopic gastrostomy tube. 7. End-stage renal disease, on hemodialysis. 8. Diabetes mellitus. --> Sliding scale 9. Hypertension. --> Improved at this time Subjective Date patient seen: February 08, 2018 Constitutional: Denies: no symptoms, chills, diaphoresis, fever, malaise, weakness, other HEENT: Denies: no symptoms, eye pain, blurred vision, tearing, double vision, ear pain, ear discharge, nose pain, nose congestion, throat pain, throat swelling, mouth pain, mouth swelling, other Cardiovascular: Denies: no symptoms, chest pain, edema, irregular heart rate, lightheadedness, palpitations, syncope, other Respiratory: Denies: no symptoms, cough, orthopnea, shortness of breath, SOB with excertion, SOB at rest, sputum, stridor, wheezing, other Gastrointestinal/Abdominal: Denies: no symptoms, abdomen distended, abdominal pain, black stools, tarry stools, blood in stool, constipated, diarrhea, difficulty swallowing, nausea, poor appetite, poor fluid intake, rectal bleeding , vomiting, other Genitourinary: Denies: no symptoms, burning, discharge, frequency, flank pain, hematuria, incontinence, pain, urgency, other Neurologic/Psychiatric: Denies: no symptoms, anxiety, depressed, emotional problems, headache, numbness, paresthesia, pre-existing deficit, seizure, tingling, tremors, weakness, other Allergies: Coded Allergies: No Known Allergies (Unverified , 02/05/18) Subjective No acute distress. H/H stable. No fever or chills. Confused. BP improved. Objective Last 24 Hour Vital Signs Date Time Temp Pulse Resp B/P (MAP) Pulse Ox O2 Delivery O2 Flow Rate FiO2 02/13/18 16:02 98.4 89 20 157/54 99 98.4 02/13/18 12:52 97.7 84 20 131/60 99 97.7 02/13/18 08:06 86 143/71 02/13/18 08:06 86 143/71 02/13/18 08:00 Room Air 02/13/18 08:00 97.9 86 20 143/71 100 97.9 02/13/18 04:00 97.2 82 18 149/80 98 97.2 02/13/18 00:00 97.3 85 19 148/79 96 97.3 02/13/18 00:00 96 Room Air 02/12/18 21:10 90 150/81 02/12/18 20:31 90 16 Room Air 21 02/12/18 20:00 98 Room Air 02/12/18 20:00 97.1 79 19 150/81 98 97.1 02/12/18 17:30 74 159/77 Intake and Output 02/12/18 02/13/18 19:00 07:00 Intake Total 170 ml 530 ml Balance 170 ml 530 ml Free Water 30 ml 110 ml Tube Feeding 140 ml 420 ml Laboratory Tests 02/13/18 08:30: White Blood Count 8.2, Red Blood Count 2.72L, Hemoglobin 8.8L, Hematocrit 25.9L , Mean Corpuscular Volume 95, Mean Corpuscular Hemoglobin 32.4H, Mean Corpuscular Hemoglobin Concent 33.9, Red Cell Distribution Width 16.8H, Platelet Count 152, Mean Platelet Volume 5.4L, Neutrophils (%) (Auto) 74.5, Lymphocytes (%) (Auto) 13.3L, Monocytes (%) (Auto) 6.9, Eosinophils (%) (Auto) 4.8H, Basophils (%) (Auto) 0.6, Sodium Level 145, Potassium Level 4.6, Chloride Level 111H, Carbon Dioxide Level 27, Anion Gap 8, Blood Urea Nitrogen 121H, Creatinine 3.3H, Estimat Glomerular Filtration Rate 18.8, Glucose Level 150H, Uric Acid 8.2H, Calcium Level 9.1, Phosphorus Level 5.1H, Magnesium Level 3.6H, Total Bilirubin 1.0, Aspartate Amino Transf (AST/SGOT) 49H, Alanine Aminotransferase (ALT/SGPT) 32, Alkaline Phosphatase 1035H, Pro-B-Type Natriuretic Peptide 83359Z, Total Protein 5.4L, Albumin 1.5L, Globulin 3.9, Albumin/Globulin Ratio 0.4L Height (Feet): 5 Height (Inches): 5.00 Weight (Pounds): 145 General Appearance: no apparent distress, confused EENT: normal ENT inspection Cardiovascular: normal rate, regular rhythm Respiratory/Chest: chest wall non-tender, lungs clear Abdomen: normal bowel sounds, non tender Andreas Freed MD February 13, 2018 16:26
--- NOTE | 2018-02-13 18:31 | Neurology Progress Note ---
Interim History Interim History Interim History Mr. Bullard tells me he feels "better" - in Thai. He is still not completely alert. He is able to follow a few simple commands better. He is able to say a few words. He is still unable to communicate in a meaningful manner. However as per his nurse, he was having a conversation with his sister earlier. He continues to be generally weak. His PEG is functioning well. He is still encephalopathic. Plans are to be transferred to a SNF today. Review of Systems Neuro Review of Systems Unable to obtain. Objective Physical Exam Last Vital Signs Date Time Temp Pulse Resp B/P (MAP) Pulse Ox O2 Delivery O2 Flow Rate FiO2 02/13/18 18:16 157/54 02/13/18 18:15 89 02/13/18 16:02 98.4 20 99 98.4 02/13/18 16:02 Room Air 02/12/18 20:31 21 02/08/18 16:00 3.0 Laboratory Tests Test 02/13/18 08:30 White Blood Count 8.2 K/UL (4.8-10.8) Red Blood Count 2.72 M/UL (4.70-6.10) L Hemoglobin 8.8 G/DL (14.2-18.0) L Hematocrit 25.9 % (42.0-52.0) L Mean Corpuscular Volume 95 FL (80-99) Mean Corpuscular Hemoglobin 32.4 PG (27.0-31.0) H Mean Corpuscular Hemoglobin Concent 33.9 G/DL (32.0-36.0) Red Cell Distribution Width 16.8 % (11.6-14.8) H Platelet Count 152 K/UL (150-450) Mean Platelet Volume 5.4 FL (6.5-10.1) L Neutrophils (%) (Auto) 74.5 % (45.0-75.0) Lymphocytes (%) (Auto) 13.3 % (20.0-45.0) L Monocytes (%) (Auto) 6.9 % (1.0-10.0) Eosinophils (%) (Auto) 4.8 % (0.0-3.0) H Basophils (%) (Auto) 0.6 % (0.0-2.0) Sodium Level 145 MMOL/L (136-145) Potassium Level 4.6 MMOL/L (3.5-5.1) Chloride Level 111 MMOL/L (98-107) H Carbon Dioxide Level 27 MMOL/L (21-32) Anion Gap 8 mmol/L (5-15) Blood Urea Nitrogen 121 mg/dL (7-18) H Creatinine 3.3 MG/DL (0.55-1.30) H Estimat Glomerular Filtration Rate 18.8 mL/min (>60) Glucose Level 150 MG/DL (74-106) H Uric Acid 8.2 MG/DL (2.6-7.2) H Calcium Level 9.1 MG/DL (8.5-10.1) Phosphorus Level 5.1 MG/DL (2.5-4.9) H Magnesium Level 3.6 MG/DL (1.8-2.4) H Total Bilirubin 1.0 MG/DL (0.2-1.0) Aspartate Amino Transf (AST/SGOT) 49 U/L (15-37) H Alanine Aminotransferase (ALT/SGPT) 32 U/L (12-78) Alkaline Phosphatase 1035 U/L (46-116) H Pro-B-Type Natriuretic Peptide 91168 pg/mL (0-125) H Total Protein 5.4 G/DL (6.4-8.2) L Albumin 1.5 G/DL (3.4-5.0) L Globulin 3.9 g/dL Albumin/Globulin Ratio 0.4 (1.0-2.7) L Neurologic Exam Objective PHYSICAL EXAMINATION: GENERAL: He is a well-developed and well-nourished gentleman, lying in bed, in no acute distress. HEAD: Normocephalic and atraumatic. EENT: Examination benign. NECK: No neck rigidity was observed. NEUROLOGIC EXAMINATION: MENTAL STATUS EXAMINATION: He was awake but not completely alert. He was oriented to self only. He was minimally more verbal. He was able to follow a few simple commands. Further mental status testing was impossible. SPEECH: He was dysarthric. LANGUAGE : Could not be tested. CRANIAL NERVE EXAMINATION: II: He did not blink to threat on the right side, but did blink to threat on the left side indicating possible visual loss in the right eye. He was able to count fingers. III, IV & : The external ocular movements were present on oculocephalic maneuvers. The pupils were 3 mm in diameter and nonreactive to light. V: He had normal facial sensations, and the temporales, masseters, and pterygoids functioned normally. VII: He had normal facial expressions and no facial asymmetry. VIII: He seemed to be able to hear well and had no nystagmus. IX: The palate moved symmetrically on phonation . X: He had no hoarseness of voice. XI: The sternocleidomastoids and trapezii functioned normally. XII: The tongue was in the midline without any fasciculations or atrophy. MOTOR SYSTEM: The tone was normal in all four extremities. Examination of muscle mass revealed no focal wasting. He did however have generalized muscle wasting. Examination of power was impossible to perform on individual muscle groups. He did move all four extremities minimally on command. He could not cooperate for further motor testing. SENSORY EXAMINATION: He responded to deep pain in all four extremities in a relatively symmetric manner. REFLEXES: Trace+ and bilaterally symmetrical at the biceps, triceps, brachioradialis, and knees and 0 at both ankles. The plantar responses were flexor bilaterally. COORDINATION, STANCE & GAIT: Could not be tested. Impression/Recommendations Diagnostic Impression 1. Mr. Figueroa Bullard is a 68-year-old, right-handed, gentleman, who does have a past history of hypertension, diabetes mellitus, congestive heart failure , end-stage renal disease, on hemodialysis, a kidney transplant, and progressive gait problems leading to falls, who has been living in a shelter for the last two weeks or so. He was hospitalized on 02/05/2018 when he was found to be poorly responsive. It was assumed that he may have had a seizure. 2. He continues to be awake. He however is not completely alert. He is able to follow a few simple commands. He is able to say a few words. He however is still unable to communicate in a meaningful manner. He continues to be generally weak. His PEG is functioning well. He is generally better today. 3. On neurological examination, at this time, he is awake but not completely alert. He is more responsive and more verbal. He continues to be cognitively impoverished and exhibits global cerebral dysfunction. He also exhibits a quadriparesis with minimal movements in all four extremities on command. His deep tendon reflexes are globally diminished. He is still encephalopathic. 4. Laboratory data revealed that he is anemic with a hemoglobin of 9.8. His platelet count is low at 133,000. His chemistry panel reveals a BUN elevated at 80, creatinine elevated at 2.9, glucose elevated at 121, elevated GTT, AST, and alkaline phosphate. BNP elevated to 21,546. Hypoalbuminemia with an albumin of 1.6. TSH elevated at 4.63. A normal B12 and folate level. The urinalysis reveals 1+ leukocyte esterase, 5-10 red blood cells, and 2-4 white blood cells per high-power field. 5. The EEG reveals a moderately severe toxic/metabolic encephalopathy. No inter- ictal discharges were seen. 6. The MRI of the brain revealed "mild atrophy and evidence of chronic small vessel disease involving white matter tracts, but no acute pathology." 7. The patient's history and neurological examination are most compatible with a significant toxic metabolic encephalopathy due to multiple toxic metabolic brain insults. The history of a seizure is suspect. He is still encephalopathic - but has improved. Recommendations 1. Continue present management. 2. No need for antiseizure medicine. 3. Agree with transfer to [facility]. Juan Cortez M.D., M.S.[facility]. JUAN CORTEZ February 13, 2018 18:31
--- NOTE | 2018-02-13 20:01 | General Progress Note ---
Assessment/Plan Assessment/Plan 1. Anemia due to underlying chronic disease. --> Anemia workup has been reviewed. --> Ferritin of 1300, percent saturation 28, TIBC 105, magnesium of 3.4. --> Hemoglobin goal is above 7. --> No occult blood found. 2. Anemia due to underlying kidney disease. --> Continue the patient on Procrit. --> The patient with a history of renal transplant. Okay to continue heparin subcutaneous. 3. Leukocytosis, likely secondary to underlying infection. --> Closely monitor for improvement. --> Resolved at this time. 4. Splenomegaly. 5. Encephalopathy. 6. Dysphagia, status post percutaneous endoscopic gastrostomy tube. 7. End-stage renal disease, on hemodialysis. 8. Diabetes mellitus. --> Sliding scale 9. Hypertension. --> Improved at this time Subjective Date patient seen: February 09, 2018 Constitutional: Denies: no symptoms, chills, diaphoresis, fever, malaise, weakness, other HEENT: Denies: no symptoms, eye pain, blurred vision, tearing, double vision, ear pain, ear discharge, nose pain, nose congestion, throat pain, throat swelling, mouth pain, mouth swelling, other Cardiovascular: Denies: no symptoms, chest pain, edema, irregular heart rate, lightheadedness, palpitations, syncope, other Respiratory: Denies: no symptoms, cough, orthopnea, shortness of breath, SOB with excertion, SOB at rest, sputum, stridor, wheezing, other Gastrointestinal/Abdominal: Denies: no symptoms, abdomen distended, abdominal pain, black stools, tarry stools, blood in stool, constipated, diarrhea, difficulty swallowing, nausea, poor appetite, poor fluid intake, rectal bleeding , vomiting, other Genitourinary: Denies: no symptoms, burning, discharge, frequency, flank pain, hematuria, incontinence, pain, urgency, other Neurologic/Psychiatric: Denies: no symptoms, anxiety, depressed, emotional problems, headache, numbness, paresthesia, pre-existing deficit, seizure, tingling, tremors, weakness, other Allergies: Coded Allergies: No Known Allergies (Unverified , 02/05/18) Subjective No acute medical distress. Awake. No fever. Objective Last 24 Hour Vital Signs Date Time Temp Pulse Resp B/P (MAP) Pulse Ox O2 Delivery O2 Flow Rate FiO2 5/8/18 18:16 157/54 02/13/18 18:15 89 157/54 02/13/18 16:02 98.4 89 20 157/54 99 98.4 02/13/18 16:02 Room Air 02/13/18 12:52 97.7 84 20 131/60 99 97.7 02/13/18 08:06 86 143/71 02/13/18 08:06 86 143/71 02/13/18 08:00 Room Air 02/13/18 08:00 97.9 86 20 143/71 100 97.9 02/13/18 04:00 97.2 82 18 149/80 98 97.2 02/13/18 00:00 97.3 85 19 148/79 96 97.3 02/13/18 00:00 96 Room Air 02/12/18 21:10 90 150/81 02/12/18 20:31 90 16 Room Air 21 02/12/18 20:00 98 Room Air 02/12/18 20:00 97.1 79 19 150/81 98 97.1 Intake and Output 02/12/18 02/13/18 19:00 07:00 Intake Total 170 ml 530 ml Balance 170 ml 530 ml Free Water 30 ml 110 ml Tube Feeding 140 ml 420 ml Laboratory Tests 02/13/18 08:30: White Blood Count 8.2, Red Blood Count 2.72L, Hemoglobin 8.8L, Hematocrit 25.9L , Mean Corpuscular Volume 95, Mean Corpuscular Hemoglobin 32.4H, Mean Corpuscular Hemoglobin Concent 33.9, Red Cell Distribution Width 16.8H, Platelet Count 152, Mean Platelet Volume 5.4L, Neutrophils (%) (Auto) 74.5, Lymphocytes (%) (Auto) 13.3L, Monocytes (%) (Auto) 6.9, Eosinophils (%) (Auto) 4.8H, Basophils (%) (Auto) 0.6, Sodium Level 145, Potassium Level 4.6, Chloride Level 111H, Carbon Dioxide Level 27, Anion Gap 8, Blood Urea Nitrogen 121H, Creatinine 3.3H, Estimat Glomerular Filtration Rate 18.8, Glucose Level 150H, Uric Acid 8.2H, Calcium Level 9.1, Phosphorus Level 5.1H, Magnesium Level 3.6H, Total Bilirubin 1.0, Aspartate Amino Transf (AST/SGOT) 49H, Alanine Aminotransferase (ALT/SGPT) 32, Alkaline Phosphatase 1035H, Pro-B-Type Natriuretic Peptide 00526E, Total Protein 5.4L, Albumin 1.5L, Globulin 3.9, Albumin/Globulin Ratio 0.4L Height (Feet): 5 Height (Inches): 5.00 Weight (Pounds): 145 General Appearance: no apparent distress EENT: normal ENT inspection Respiratory/Chest: lungs clear, normal breath sounds Abdomen: normal bowel sounds, non tender Andreas Freed MD February 13, 2018 20:00
[2018-02-13] MEDS ORDERED: Renvela 800mg Pkt NG SCH (22:00)
--- NOTE | 2018-02-14 00:33 | General Progress Note ---
Assessment/Plan Assessment/Plan #. Anemia due to underlying chronic disease. --> Anemia workup has been reviewed. --> Ferritin of 1300, percent saturation 28, TIBC 105, magnesium of 3.4. --> Hemoglobin goal is above 7. Transfusion not needed at this time. --> No occult blood found. #. Anemia due to underlying kidney disease. --> Continue the patient on Procrit. --> The patient with a history of renal transplant. Okay to continue heparin subcutaneous. #. Leukocytosis, likely secondary to underlying infection. --> Closely monitor for improvement. --> Resolved at this time. #. Splenomegaly. #. Encephalopathy. #. Dysphagia, status post percutaneous endoscopic gastrostomy tube. #. End-stage renal disease, on hemodialysis. #. Diabetes mellitus. --> Sliding scale #. Hypertension. --> Improved at this time DC planning. Subjective Date patient seen: February 10, 2018 Constitutional: Denies: no symptoms, chills, diaphoresis, fever, malaise, weakness, other HEENT: Denies: no symptoms, eye pain, blurred vision, tearing, double vision, ear pain, ear discharge, nose pain, nose congestion, throat pain, throat swelling, mouth pain, mouth swelling, other Cardiovascular: Denies: no symptoms, chest pain, edema, irregular heart rate, lightheadedness, palpitations, syncope, other Respiratory: Denies: no symptoms, cough, orthopnea, shortness of breath, SOB with excertion, SOB at rest, sputum, stridor, wheezing, other Gastrointestinal/Abdominal: Denies: no symptoms, abdomen distended, abdominal pain, black stools, tarry stools, blood in stool, constipated, diarrhea, difficulty swallowing, nausea, poor appetite, poor fluid intake, rectal bleeding , vomiting, other Genitourinary: Denies: no symptoms, burning, discharge, frequency, flank pain, hematuria, incontinence, pain, urgency, other Neurologic/Psychiatric: Denies: no symptoms, anxiety, depressed, emotional problems, headache, numbness, paresthesia, pre-existing deficit, seizure, tingling, tremors, weakness, other Endocrine: Denies: no symptoms, excessive sweating, flushing, intolerance to cold, intolerance to heat, increased hunger, increased thirst, increased urine, unexplained weight gain, unexplained weight loss, other Allergies: Coded Allergies: No Known Allergies (Unverified , 02/05/18) Subjective No new events overnight. H/H stable. Objective Last 24 Hour Vital Signs Date Time Temp Pulse Resp B/P (MAP) Pulse Ox O2 Delivery O2 Flow Rate FiO2 02/13/18 18:16 157/54 02/13/18 18:15 89 157/54 02/13/18 16:02 98.4 89 20 157/54 99 98.4 02/13/18 16:02 Room Air 02/13/18 12:52 97.7 84 20 131/60 99 97.7 02/13/18 08:06 86 143/71 02/13/18 08:06 86 143/71 02/13/18 08:00 Room Air 02/13/18 08:00 97.9 86 20 143/71 100 97.9 02/13/18 04:00 97.2 82 18 149/80 98 97.2 Intake and Output 02/13/18 02/14/18 19:00 07:00 Intake Total 465 ml Balance 465 ml Free Water 80 ml Tube Feeding 385 ml # Bowel Movements 2 Laboratory Tests 02/13/18 08:30: White Blood Count 8.2, Red Blood Count 2.72L, Hemoglobin 8.8L, Hematocrit 25.9L , Mean Corpuscular Volume 95, Mean Corpuscular Hemoglobin 32.4H, Mean Corpuscular Hemoglobin Concent 33.9, Red Cell Distribution Width 16.8H, Platelet Count 152, Mean Platelet Volume 5.4L, Neutrophils (%) (Auto) 74.5, Lymphocytes (%) (Auto) 13.3L, Monocytes (%) (Auto) 6.9, Eosinophils (%) (Auto) 4.8H, Basophils (%) (Auto) 0.6, Sodium Level 145, Potassium Level 4.6, Chloride Level 111H, Carbon Dioxide Level 27, Anion Gap 8, Blood Urea Nitrogen 121H, Creatinine 3.3H, Estimat Glomerular Filtration Rate 18.8, Glucose Level 150H, Uric Acid 8.2H, Calcium Level 9.1, Phosphorus Level 5.1H, Magnesium Level 3.6H, Total Bilirubin 1.0, Aspartate Amino Transf (AST/SGOT) 49H, Alanine Aminotransferase (ALT/SGPT) 32, Alkaline Phosphatase 1035H, Pro-B-Type Natriuretic Peptide 74305Z, Total Protein 5.4L, Albumin 1.5L, Globulin 3.9, Albumin/Globulin Ratio 0.4L Height (Feet): 5 Height (Inches): 5.00 Weight (Pounds): 145 General Appearance: no apparent distress EENT: normal ENT inspection Cardiovascular: normal rate, regular rhythm Respiratory/Chest: lungs clear, normal breath sounds Abdomen: normal bowel sounds, soft Andreas Freed MD February 14, 2018 00:33
--- NOTE | 2018-02-14 23:15 | General Progress Note ---
Assessment/Plan Assessment/Plan #. Anemia due to underlying chronic disease. --> Anemia workup has been reviewed. --> Ferritin of 1300, percent saturation 28, TIBC 105, magnesium of 3.4. --> Hemoglobin goal is above 7. Transfusion not needed at this time. --> No occult blood found. #. Anemia due to underlying kidney disease. --> Continue the patient on Procrit. --> The patient with a history of renal transplant. Okay to continue heparin subcutaneous. #. Leukocytosis, likely secondary to underlying infection. --> Closely monitor for improvement. --> Resolved at this time. #. Splenomegaly. #. Encephalopathy. #. Dysphagia, status post percutaneous endoscopic gastrostomy tube. #. End-stage renal disease, on hemodialysis. #. Diabetes mellitus. --> Sliding scale #. Hypertension. --> Improved at this time DC planning. Subjective Date patient seen: February 11, 2018 Constitutional: Denies: no symptoms, chills, diaphoresis, fever, malaise, weakness, other HEENT: Denies: no symptoms, eye pain, blurred vision, tearing, double vision, ear pain, ear discharge, nose pain, nose congestion, throat pain, throat swelling, mouth pain, mouth swelling, other Cardiovascular: Denies: no symptoms, chest pain, edema, irregular heart rate, lightheadedness, palpitations, syncope, other Respiratory: Denies: no symptoms, cough, orthopnea, shortness of breath, SOB with excertion, SOB at rest, sputum, stridor, wheezing, other Gastrointestinal/Abdominal: Denies: no symptoms, abdomen distended, abdominal pain, black stools, tarry stools, blood in stool, constipated, diarrhea, difficulty swallowing, nausea, poor appetite, poor fluid intake, rectal bleeding , vomiting, other Genitourinary: Denies: no symptoms, burning, discharge, frequency, flank pain, hematuria, incontinence, pain, urgency, other Neurologic/Psychiatric: Denies: no symptoms, anxiety, depressed, emotional problems, headache, numbness, paresthesia, pre-existing deficit, seizure, tingling, tremors, weakness, other Allergies: Coded Allergies: No Known Allergies (Unverified , 02/05/18) Subjective No new events overnight. H/H stable. Objective Intake and Output 02/13/18 02/14/18 19:00 07:00 Intake Total 465 ml Balance 465 ml Free Water 80 ml Tube Feeding 385 ml # Bowel Movements 2 Height (Feet): 5 Height (Inches): 5.00 Weight (Pounds): 145 General Appearance: no apparent distress EENT: normal ENT inspection Cardiovascular: normal rate, regular rhythm, no JVD Respiratory/Chest: chest wall non-tender, lungs clear Abdomen: non tender, soft Andreas Freed MD February 14, 2018 23:15
--- NOTE | 2018-02-15 11:19 | Discharge Summary ---
Discharge Summary Discharge Summary Discharge Summary DATE OF ADMISSION: 01/19/2018 DATE OF DISCHARGE: 02/13/2018 CONSULTANTS: Dr. José Miguel Bagley [facility] COURSE: Patient is a 68-year-old male, with history of end-stage renal disease status post renal transplant, on hemodialysis, diabetes mellitus, hypertension, was brought in by ambulance from group home due to altered mental status. Patient is usually awake and alert. He was recently admitted at [facility], family reported he required several blood transfusions. There was also reported of recent trauma to the right side of the head. He was noted to be nonverbal and appeared unresponsive for the past 2 days. On arrival to ED he was essentially responsive to physical stimuli but not to verbal. On evaluation at ED, workup showed WBC was 7.3, hemoglobin 10, hematocrit 28.9, platelet was 114. BUN was elevated to 79, creatinine was 2.8, troponin was negative. He had a CT of the head done results showed no evidence of acute intracranial hemorrhage, mass effect, midline shift or cortical edema. There was atrophy and nonspecific olamide ventricular hypoattenuation suggestive of chronic ischemic microvascular changes. Chest x-ray with cardiomegaly and interstitial opacification/edema, small left/trace right pleural effusions and left basilar atelectasis/consolidation. EKG was in normal sinus rhythm. He continued to have decreased responsiveness. He was then admitted for evaluation of acute encephalopathy. He was seen by neurologist. On evaluation patient with significant toxic metabolic encephalopathy due to multiple toxic metabolic brain insults. Brain MRI was done and was negative for acute intracranial findings. EEG with slowing of the background in the theta and delta range. There was no definite focal abnormalities or epileptiform discharges seen. No need for antiseizure medications. He had waxing and waning of consciousness. Patient is awake but not alert. He was assessed that the capacity to make decisions. He was given Zyprexa daily at bedtime. He was seen by client services assistant. Renal failure appeared mainly prerenal, with underlying renal disease. He had 4+ proteinuria. He had left arm swelling, venous duplex was negative. Abdominal ultrasound showed evidence of left lower quadrant renal transplant. [place] kidneys were not imaged. He was continued on Prograf and prednisone 5 mg daily. Renvela was increased to 1600 mg every 8 hours. 24 hour urine total protein was more than 5 g He had episodes of hypothermia. There was no leukocytosis, urinalysis with no pyuria. He was given vancomycin and ceftriaxone at ED. He was followed by infectious disease specialist and was monitored off of antibiotic treatment. He continued to be altered, patient has protein calorie malnutrition. NGT was inserted for tube feeding. Speech evaluation was done. Patient has high risk for significant oropharyngeal dysphagia and silent aspiration. GI was consulted. On 02/08/2018, he underwent upper endoscopy with PEG placement by Dr. Watson. He was eventually started on G-tube feedings. He had a drop on hemoglobin. He received 1 unit packed RBC blood transfusion. Anemia workup showed ferritin level 1300, percent saturation 28, TIBC was 105. Anemia was due to underlying chronic disease. Echocardiogram done showed EF 60% .. Venous duplex of lower extremity was negative for DVT. He was continued on Isordil 10 mg every 6 hours, Norvasc 5 mg twice a day and Coreg 25 mg every 12. He was tolerating tube feeding well and was discharged back to group home. FINAL DIAGNOSES: Acute toxic metabolic encephalopathy secondary to multiple brain insults Acute renal failure, mainly prerenal and renal History of kidney transplant Dysphagia Status post percutaneous endoscopic gastrostomy tube placement on 12/2017 Diabetes mellitus Nephrotic syndrome Hypertension Severe protein calorie malnutrition Anemia of chronic kidney disease DISPOSITION: Patient was discharged [facility]. DISCHARGE MEDICATIONS: Refer to Discharge Medication List. I have been assigned to dictate discharge summary on this account, and I was not involved in the patient's management. Fely Brambila NP February 15, 2018 11:19
--- NOTE | 2018-02-15 22:54 | General Progress Note ---
Assessment/Plan Assessment/Plan Late Note #. Anemia due to underlying chronic disease. --> Anemia workup has been reviewed. --> Ferritin of 1300, percent saturation 28, TIBC 105, magnesium of 3.4. --> Hemoglobin goal is above 7. Transfusion not needed at this time. --> No occult blood found. --> Hgb levels have been stable. #. Anemia due to underlying kidney disease. --> Continue the patient on Procrit. --> The patient with a history of renal transplant. Okay to continue heparin subcutaneous. #. Leukocytosis, likely secondary to underlying infection. --> Closely monitor for improvement. --> Resolved at this time. #. Splenomegaly. --> S/P abdomen ultrasound revealing Borderline splenomegaly. Left pleural effusion partially visualized. #. Encephalopathy. #. Dysphagia, status post percutaneous endoscopic gastrostomy tube. #. End-stage renal disease, on hemodialysis. #. Diabetes mellitus. --> Sliding scale #. Hypertension. --> Improved at this time DC planning. Subjective Date patient seen: February 12, 2018 Constitutional: Denies: no symptoms, chills, diaphoresis, fever, malaise, weakness, other HEENT: Denies: no symptoms, eye pain, blurred vision, tearing, double vision, ear pain, ear discharge, nose pain, nose congestion, throat pain, throat swelling, mouth pain, mouth swelling, other Cardiovascular: Denies: no symptoms, chest pain, edema, irregular heart rate, lightheadedness, palpitations, syncope, other Respiratory: Denies: no symptoms, cough, orthopnea, shortness of breath, SOB with excertion, SOB at rest, sputum, stridor, wheezing, other Gastrointestinal/Abdominal: Denies: no symptoms, abdomen distended, abdominal pain, black stools, tarry stools, blood in stool, constipated, diarrhea, difficulty swallowing, nausea, poor appetite, poor fluid intake, rectal bleeding , vomiting, other Genitourinary: Denies: no symptoms, burning, discharge, frequency, flank pain, hematuria, incontinence, pain, urgency, other Neurologic/Psychiatric: Denies: no symptoms, anxiety, depressed, emotional problems, headache, numbness, paresthesia, pre-existing deficit, seizure, tingling, tremors, weakness, other Allergies: Coded Allergies: No Known Allergies (Unverified , 02/05/18) Subjective No acute medical distress. No fever. Pending dc. Objective VS - Last 72 Hours, by Label Date Time Temp Pulse Resp B/P (MAP) Pulse Ox O2 Delivery O2 Flow Rate FiO2 02/13/18 18:16 157/54 02/13/18 18:15 89 157/54 02/13/18 16:02 98.4 89 20 157/54 99 98.4 02/13/18 16:02 Room Air 02/13/18 12:52 97.7 84 20 131/60 99 97.7 02/13/18 08:06 86 143/71 02/13/18 08:06 86 143/71 02/13/18 08:00 Room Air 02/13/18 08:00 97.9 86 20 143/71 100 97.9 02/13/18 04:00 97.2 82 18 149/80 98 97.2 02/13/18 00:00 97.3 85 19 148/79 96 97.3 02/13/18 00:00 96 Room Air Labs Test 02/13/18 08:30 White Blood Count 8.2 K/UL (4.8-10.8) Red Blood Count 2.72 M/UL (4.70-6.10) Hemoglobin 8.8 G/DL (14.2-18.0) Hematocrit 25.9 % (42.0-52.0) Mean Corpuscular Volume 95 FL (80-99) Mean Corpuscular Hemoglobin 32.4 PG (27.0-31.0) Mean Corpuscular Hemoglobin Concent 33.9 G/DL (32.0-36.0) Red Cell Distribution Width 16.8 % (11.6-14.8) Platelet Count 152 K/UL (150-450) Mean Platelet Volume 5.4 FL (6.5-10.1) Neutrophils (%) (Auto) 74.5 % (45.0-75.0) Lymphocytes (%) (Auto) 13.3 % (20.0-45.0) Monocytes (%) (Auto) 6.9 % (1.0-10.0) Eosinophils (%) (Auto) 4.8 % (0.0-3.0) Basophils (%) (Auto) 0.6 % (0.0-2.0) Sodium Level 145 MMOL/L (136-145) Potassium Level 4.6 MMOL/L (3.5-5.1) Chloride Level 111 MMOL/L (98-107) Carbon Dioxide Level 27 MMOL/L (21-32) Anion Gap 8 mmol/L (5-15) Blood Urea Nitrogen 121 mg/dL (7-18) Creatinine 3.3 MG/DL (0.55-1.30) Estimat Glomerular Filtration Rate 18.8 mL/min (>60) Glucose Level 150 MG/DL (74-106) Uric Acid 8.2 MG/DL (2.6-7.2) Calcium Level 9.1 MG/DL (8.5-10.1) Phosphorus Level 5.1 MG/DL (2.5-4.9) Magnesium Level 3.6 MG/DL (1.8-2.4) Total Bilirubin 1.0 MG/DL (0.2-1.0) Aspartate Amino Transf (AST/SGOT) 49 U/L (15-37) Alanine Aminotransferase (ALT/SGPT) 32 U/L (12-78) Alkaline Phosphatase 1035 U/L (46-116) Pro-B-Type Natriuretic Peptide 33438 pg/mL (0-125) Total Protein 5.4 G/DL (6.4-8.2) Albumin 1.5 G/DL (3.4-5.0) Globulin 3.9 g/dL Albumin/Globulin Ratio 0.4 (1.0-2.7) Height (Feet): 5 Height (Inches): 5.00 Weight (Pounds): 145 General Appearance: no apparent distress Neck: supple Cardiovascular: normal rate, regular rhythm Respiratory/Chest: lungs clear, normal breath sounds Abdomen: normal bowel sounds, non tender Andreas Freed MD February 15, 2018 22:54
--- NOTE | 2018-02-15 22:56 | General Progress Note ---
Assessment/Plan Assessment/Plan Late Note #. Anemia due to underlying kidney disease. --> Continue the patient on Procrit. --> The patient with a history of renal transplant. Okay to continue heparin subcutaneous. #. Anemia due to underlying chronic disease. --> Anemia workup has been reviewed. --> Ferritin of 1300, percent saturation 28, TIBC 105, magnesium of 3.4. --> Hemoglobin goal is above 7. Transfusion not needed at this time. --> No occult blood found. --> Hgb levels have been stable. #. Leukocytosis, likely secondary to underlying infection. --> Closely monitor for improvement. --> Resolved at this time. #. Splenomegaly. --> S/P abdomen ultrasound revealing Borderline splenomegaly. Left pleural effusion partially visualized. #. Encephalopathy. #. Dysphagia, status post percutaneous endoscopic gastrostomy tube. #. End-stage renal disease, on hemodialysis. #. Diabetes mellitus. --> Sliding scale #. Hypertension. --> Improved at this time DC planning. Subjective Date patient seen: February 13, 2018 Constitutional: Denies: no symptoms, chills, diaphoresis, fever, malaise, weakness, other HEENT: Denies: no symptoms, eye pain, blurred vision, tearing, double vision, ear pain, ear discharge, nose pain, nose congestion, throat pain, throat swelling, mouth pain, mouth swelling, other Cardiovascular: Denies: no symptoms, chest pain, edema, irregular heart rate, lightheadedness, palpitations, syncope, other Respiratory: Denies: no symptoms, cough, orthopnea, shortness of breath, SOB with excertion, SOB at rest, sputum, stridor, wheezing, other Gastrointestinal/Abdominal: Denies: no symptoms, abdomen distended, abdominal pain, black stools, tarry stools, blood in stool, constipated, diarrhea, difficulty swallowing, nausea, poor appetite, poor fluid intake, rectal bleeding , vomiting, other Genitourinary: Denies: no symptoms, burning, discharge, frequency, flank pain, hematuria, incontinence, pain, urgency, other Neurologic/Psychiatric: Denies: no symptoms, anxiety, depressed, emotional problems, headache, numbness, paresthesia, pre-existing deficit, seizure, tingling, tremors, weakness, other Hematologic/Lymphatic: Reports: anemia Allergies: Coded Allergies: No Known Allergies (Unverified , 02/05/18) Subjective No major events overnight. Pending discharged. No distress. Objective VS - Last 72 Hours, by Label Date Time Temp Pulse Resp B/P (MAP) Pulse Ox O2 Delivery O2 Flow Rate FiO2 02/13/18 18:16 157/54 02/13/18 18:15 89 157/54 02/13/18 16:02 98.4 89 20 157/54 99 98.4 02/13/18 16:02 Room Air 02/13/18 12:52 97.7 84 20 131/60 99 97.7 02/13/18 08:06 86 143/71 02/13/18 08:06 86 143/71 02/13/18 08:00 Room Air 02/13/18 08:00 97.9 86 20 143/71 100 97.9 02/13/18 04:00 97.2 82 18 149/80 98 97.2 02/13/18 00:00 97.3 85 19 148/79 96 97.3 02/13/18 00:00 96 Room Air Labs Test 02/13/18 08:30 White Blood Count 8.2 K/UL (4.8-10.8) Red Blood Count 2.72 M/UL (4.70-6.10) Hemoglobin 8.8 G/DL (14.2-18.0) Hematocrit 25.9 % (42.0-52.0) Mean Corpuscular Volume 95 FL (80-99) Mean Corpuscular Hemoglobin 32.4 PG (27.0-31.0) Mean Corpuscular Hemoglobin Concent 33.9 G/DL (32.0-36.0) Red Cell Distribution Width 16.8 % (11.6-14.8) Platelet Count 152 K/UL (150-450) Mean Platelet Volume 5.4 FL (6.5-10.1) Neutrophils (%) (Auto) 74.5 % (45.0-75.0) Lymphocytes (%) (Auto) 13.3 % (20.0-45.0) Monocytes (%) (Auto) 6.9 % (1.0-10.0) Eosinophils (%) (Auto) 4.8 % (0.0-3.0) Basophils (%) (Auto) 0.6 % (0.0-2.0) Sodium Level 145 MMOL/L (136-145) Potassium Level 4.6 MMOL/L (3.5-5.1) Chloride Level 111 MMOL/L (98-107) Carbon Dioxide Level 27 MMOL/L (21-32) Anion Gap 8 mmol/L (5-15) Blood Urea Nitrogen 121 mg/dL (7-18) Creatinine 3.3 MG/DL (0.55-1.30) Estimat Glomerular Filtration Rate 18.8 mL/min (>60) Glucose Level 150 MG/DL (74-106) Uric Acid 8.2 MG/DL (2.6-7.2) Calcium Level 9.1 MG/DL (8.5-10.1) Phosphorus Level 5.1 MG/DL (2.5-4.9) Magnesium Level 3.6 MG/DL (1.8-2.4) Total Bilirubin 1.0 MG/DL (0.2-1.0) Aspartate Amino Transf (AST/SGOT) 49 U/L (15-37) Alanine Aminotransferase (ALT/SGPT) 32 U/L (12-78) Alkaline Phosphatase 1035 U/L (46-116) Pro-B-Type Natriuretic Peptide 16615 pg/mL (0-125) Total Protein 5.4 G/DL (6.4-8.2) Albumin 1.5 G/DL (3.4-5.0) Globulin 3.9 g/dL Albumin/Globulin Ratio 0.4 (1.0-2.7) Height (Feet): 5 Height (Inches): 5.00 Weight (Pounds): 145 General Appearance: no apparent distress Neck: normal alignment Cardiovascular: normal rate, regular rhythm Respiratory/Chest: chest wall non-tender, lungs clear Abdomen: normal bowel sounds, non tender Andreas Freed MD February 15, 2018 22:56
== END 2018-02-13 20:35 | DRG 682 ==
LOC: EDBD 08:26 → EMR 08:42 → 2E 08:48 → EDBEDREQ 11:26 → 4W 02-08 18:03
PROC: 0DH63UZ Insertion of Feeding Device into Stomach, Percutaneous Approach (ICD-10-PCS; principal; 2018-02-08 12:14)
PROC: 0DJ08ZZ Inspection of Upper Intestinal Tract, Via Natural or Artificial Opening Endoscopic (ICD-10-PCS; principal; 2018-02-08 12:14)
DX: N17.9 Acute kidney failure, unspecified (principal); G92 Toxic encephalopathy; E43 Unspecified severe protein-calorie malnutrition; R40.2113 Coma scale, eyes open, never, at hospital admission; Z94.0 Kidney transplant status; N18.9 Chronic kidney disease, unspecified; R40.2353 Coma scale, best motor response, localizes pain, at hospital admission; R40.2233 Coma scale, best verbal response, inappropriate words, at hospital admission; I12.9 Hypertensive chronic kidney disease with stage 1 through stage 4 chronic kidney disease, or unspecified chronic kidney disease; E11.22 Type 2 diabetes mellitus with diabetic chronic kidney disease; T68.XXXA Hypothermia, initial encounter; D63.1 Anemia in chronic kidney disease; D72.829 Elevated white blood cell count, unspecified; Z68.24 Body mass index [BMI] 24.0-24.9, adult; K29.50 Unspecified chronic gastritis without bleeding; R13.10 Dysphagia, unspecified; R62.7 Adult failure to thrive
CPT/HCPCS: 36415; 70450; 70551; 71045; 74018; 76700; 80048; 80053; 80061; 81003; 81050; 82140; 82270; 82378; 82550; 82553; 82607; 82728; 82746; 82962; 82977; 83036; 83540; 83550; 83605; 83615; 83690; 83735; 83880; 84100; 84133; 84156; 84300; 84443; 84484; 84550; 85007; 85025; 85044; 85060; 85610; 85651; 85730; 86140; 86850; 86900; 86901; 86920; 87040; 87081; 89050; 93005; 93306; 93970; 93971; 94003; 94150; 94664; 95819; 99291; J1815; J2250